=== PATIENT | male | born 1960 | race African-American/Black ===

== ENCOUNTER 2018-09-11 09:39 | Observation (INO) | payer MEDICARE, MEDICAID, SELFPAY ==
[2018-09-11] VITALS (32 sets, daily range): BP systolic 110–148; BP diastolic 43–74; PULSE 80–125; RESP 12–20; TEMP 36–36.7; O2SAT 90–99; BMI 45.2
[2018-09-11] MEDS: NITROGLYCERIN OINT 1 INCH/GM OINT...G. TOP (09:45)
--- NOTE | 2018-09-11 09:50 | DI.RAD.S_ITS ---
PROCEDURE: XR CHEST 1V INDICATIONS: chest pain/shortness of breath TECHNIQUE: One view of the chest was acquired. COMPARISON: Located Within [facility], CR, XR CHEST 2 VIEWS, 01/31/2018, 9:00. FINDINGS: Surgical changes and devices: None. Lungs and pleura: Moderately increased perihilar interstitial markings are identified. No focal consolidation, effusion, or pneumothorax is evident. Mediastinum: Mediastinal contours appear normal. Heart size is enlarged. Bones and chest wall: No suspicious bony lesions. Overlying soft tissues appear unremarkable. IMPRESSION: Cardiomegaly with associated prominent perihilar interstitial markings. Please correlate clinically for possible developing pulmonary edema. No definite pneumonia. Dictated by: Royce Jackson M.D. on 09/11/2018 at 9:30 Approved by: Royce Jackson M.D. on 09/11/2018 at 9:36
[2018-09-11] MEDS: SODIUM CHLORIDE 0.9% 1,000 ML 1000 ML IV (10:00)
[2018-09-11] MEDS: dilTIAZem 5 MG/ML SDV 10 MG IV ×2 (10:00→10:25)
--- NOTE | 2018-09-11 10:06 | ED.CHESTPAIN ---
HPI - Chest Pain General Chief Complaint: Chest Pain Stated Complaint: Chest Pain Time Seen by Provider: 09/11/18 09:40 Source: patient and EMS Mode of arrival: ambulatory Limitations: no limitations History of Present Illness HPI narrative: Patient is brought to the emergency department by EMS after experiencing left-sided, nonradiating chest pain, shortness of breath, diaphoresis, and palpitations this morning, starting at 6:00 a.m.. Patient states his pain was a 9/10 initially, and is still the same. He states that it came on at rest. Patient has a history of a non ST elevation [place], for which she was seen in June 2017 at [facility] in [place]. He also has history of paroxysmal atrial fibrillation. During his admission for his [place], he was found to have ?slightly elevated troponins and if ?according to notes, and a subsequent myocardial perfusion test showed low risk study. Patient did not have a cardiac catheterization, and notes states that it was elected to treat the patient medically. At that time, he was put on warfarin at a dose of 5 mg a day. However, patient states this now he is on nothing. He states that his doctor took him off aspirin also. The patient is not clear why. Medics state that when they picked the patient up, they found him to have a heart rate of 150 beats per minute, with atrial fibrillation. Patient was given 25 mg of Cardizem en-route, which brought his heart rate down to the 110's. Related Data Home Medications Medication Instructions Recorded Confirmed allopurinol 300 mg PO DAILY 09/11/18 09/11/18 atorvastatin 40 mg PO BEDTIME 09/11/18 09/11/18 baclofen 10 mg PO TID PRN 09/11/18 09/11/18 benzonatate 200 mg PO TID PRN 09/11/18 09/11/18 benztropine 1 tab PO BID 09/11/18 09/11/18 budesonide-formoterol 2 puff INHALATION BID PRN 09/11/18 09/11/18 carvedilol 25 mg PO BID 09/11/18 09/11/18 clonazepam 1 mg PO BID PRN 09/11/18 09/11/18 fluticasone propionate [Allergy 2 spray INTRANASAL DAILY 09/11/18 09/11/18 Relief (fluticasone)] furosemide 40 mg PO BID 09/11/18 09/11/18 ipratropium-albuterol 3 ml INHALATION QID PRN 09/11/18 09/11/18 ipratropium-albuterol [Combivent 1 puff INHALATION QID 09/11/18 09/11/18 Respimat] lamotrigine 150 mg PO DAILY 09/11/18 09/11/18 metformin 500 mg PO BID 09/11/18 09/11/18 montelukast 10 mg PO DAILY 09/11/18 09/11/18 nitroglycerin See Rx Instructions .ROUTE .COMPLEX 09/11/18 09/11/18 quetiapine 200 mg PO DAILY PRN 09/11/18 09/11/18 spironolactone 25 mg PO DAILY 09/11/18 09/11/18 tramadol 1 - 2 tab PO QID PRN 09/11/18 09/11/18 trazodone 150 mg PO BEDTIME 09/11/18 09/11/18 warfarin 1 - 2 tab PO DAILY 09/11/18 09/11/18 Allergies Allergy/AdvReac Type Severity Reaction Status Date / Time sulfamethoxazole Allergy Intermediate ITCHING Verified 09/11/18 10:06 [From BACTRIM] trimethoprim [From BACTRIM] Allergy Intermediate ITCHING Verified 09/11/18 10:06 Review of Systems Constitutional Denies chills, Denies fever(s), Denies lethargy and Denies weakness Eyes Denies change in vision, Denies eye discharge, Denies irritation and Denies loss of vision ENT Ears, Nose, Mouth, and Throat: Denies change in voice, Denies neck pain and Denies sore throat Cardiovascular Reports chest pain, Reports irregular heart rhythm, Denies lightheadedness, Reports palpitations, Reports dyspnea, Denies dyspnea on exertion and Denies orthopnea Respiratory Denies cough, Reports dyspnea, Denies dyspnea on exertion and Denies wheezing Gastrointestinal Gastrointestinal: Denies abdominal pain, Denies change in bowel habits, Denies diarrhea, Denies nausea and Denies vomiting Genitourinary Denies hematuria, Denies flank pain, Denies urinary incontinence and Denies urinary urgency Musculoskeletal Denies neck pain Integumentary/Breasts Denies pruritus, Denies erythema, Denies rash and Denies wounds Neurologic Denies confusion, Denies loss of vision and Denies weakness Psychiatric Denies anxiety, Denies confusion, Denies depression, Denies homicidal ideation and Denies suicidal ideation Endocrine Reports palpitations Hematologic/Lymphatic Denies easy bruising Allergic/Immunologic Denies wheezing [facility] Medical History (Updated 09/11/18 @ 14:35 by Luciana Rg MD) Chronic respiratory failure (Acute) Diabetes type 2, controlled (Acute) Former smoker (Acute) Grade III diastolic dysfunction (Acute) Hyperlipidemia (Acute) Hypertensive heart disease with heart failure (Acute) Non-ST elevated myocardial infarction (Acute) 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 (Acute) Obstructive sleep apnea (Acute) Paroxysmal atrial fibrillation with rapid ventricular response (Acute) Systemic hypertension (Acute) Surgical History (Updated 09/11/18 @ 10:58 by Ciera Espitia RN) H/O umbilical hernia repair (Acute ~1966) History of right hip replacement (Acute ~2014) Social History household members: spouse Smoking Status: Current some day smoker alcohol intake: current Social History household members: spouse Smoking Status: Current some day smoker alcohol intake: current Exam Initial Vital Signs Initial Vital Signs: Vital Signs Temperature 98.1 F 09/11/18 09:31 Pulse Rate 117 H 09/11/18 09:31 Respiratory Rate 16 09/11/18 09:31 Blood Pressure 145/68 H 09/11/18 09:31 Pulse Oximetry 94 09/11/18 09:31 Course Course Narrative: The patient was having chest pain upon arrival, and nitroglycerin paste was placed on his chest. He had received aspirin by the medics EN route to the hospital. The patient had received Cardizem en route, which had had a positive effect on his heart rate. He however, he was still tachycardic so I did order a total of 20 mg more of Cardizem IV. Patient was also given some IV fluid in the emergency department, and was worked up with laboratory studies, EKG, and chest x-ray initially. EKG showed AFib with RVR, and the laboratory studies showed a troponin that was slightly elevated at 0.017. Patient initially responded well to the Cardizem given in the emergency department, with his heart rate dropping down to around 100. However, after a about 30 minutes, the heart rate did begin to climb again into the 120s to 130s. At this point, the patient was put on a Cardizem drip, which did keep him very well controlled with a heart rate in the 80s to 90s, but still in atrial fibrillation. He the patient had continued to have some chest pain after the nitroglycerin, so he was given a dose of morphine which greatly improved his pain. Patient's INR was found to be 1.0. Records had finally arrive from the patient's primary care physician's office, and med list and notes demonstrated that the patient is supposed to be on Coumadin. However, the patient had stated that he is not on any anticoagulants including Coumadin or aspirin. Patient was sent for a CTA of the chest, which was unremarkable. I did review the patient's extensive medical records from [facility], and [facility], including the patient's prior cardiac studies. The patient had had a negative cardiac catheterization in 2013, as well as a number of stress tests and a few myocardial perfusion test, as well. The patient's most recent stress test/myocardial perfusion test was on September 04 of this year, and showed a negative stress test but a myocardial perfusion test showing ischemia in the distribution of the right coronary artery. I spoke with the on-call channel marketing coordinator, , at [facility] in telling him, and he stated that at this time, he would consider a cardiac catheterization a low priority, and recommends medical management. I spoke with Dr. Johnson, who was hospitalist on duty, and she did accept the patient for admission. Orders Ordered: ED Orders 09/11/18 11:57 CT angio chest PE protocol Stat 09/11/18 12:50 EKG-12 Lead Stat 09/11/18 13:04 Trop I [Troponin I] Stat 09/11/18 13:49 Urine Microscopic Stat 09/11/18 14:34 Urinalysis and Microscopic Stat 09/11/18 16:28 Consult to Pastoral Services Routine Diltiazem HCl 125 mg/ Dextrose 125 mls @ 5 mls/hr IV TITRATE ANURAG; Protocol Last Titration: 09/11/18 16:11 Dose: 5 mg/hr, 5 mls/hr Admin: 09/11/18 11:41 Dose: 5 mg/hr, 5 mls/hr Discontinued Medications Aspirin (Aspirin) 325 mg PO NOW ONE Stop: 09/11/18 09:51 Last Admin: 09/11/18 10:15 Dose: Not Given Diltiazem HCl (Cardizem) 10 mg IV NOW ONE Stop: 09/11/18 09:51 Last Admin: 09/11/18 10:00 Dose: 10 mg Diltiazem HCl (Cardizem) 10 mg IV NOW ONE Stop: 09/11/18 10:19 Last Admin: 09/11/18 10:25 Dose: 10 mg Sodium Chloride (Normal Saline 0.9%) 1,000 mls @ 1,000 mls/hr IV BOLUS ONE Stop: 09/11/18 10:49 Last Infusion: 09/11/18 15:40 Dose: 0 mls/hr Infusion: 09/11/18 10:27 Dose: 150 mls/hr Admin: 09/11/18 10:00 Dose: 1,000 mls/hr Morphine Sulfate (Morphine) 4 mg IV NOW ONE Stop: 09/11/18 10:37 Last Admin: 09/11/18 10:37 Dose: 4 mg Nitroglycerin (Nitro-Dur) 0.4 mg TOP 0700 ANURAG Nitroglycerin (Nitro-Bid) 1 inch TOP NOW ONE Stop: 09/11/18 10:20 Last Admin: 09/11/18 09:45 Dose: 1 inch Vital Signs - 8 hr 09/11/18 11:06 09/11/18 11:36 09/11/18 11:41 Temperature Pulse Rate 105 H 108 H 96 H Respiratory Rate 18 19 Blood Pressure 126/70 Blood Pressure [Right Arm] 144/68 H 126/70 Pulse Oximetry 95 95 09/11/18 12:00 09/11/18 12:31 09/11/18 13:00 Temperature Pulse Rate 112 H 93 H 93 H Respiratory Rate 20 18 20 Blood Pressure Blood Pressure [Right Arm] 139/58 L 133/72 Pulse Oximetry 98 98 97 09/11/18 13:30 09/11/18 14:00 09/11/18 14:30 Temperature Pulse Rate 88 93 H Respiratory Rate 18 12 17 Blood Pressure Blood Pressure [Right Arm] 130/63 116/71 131/72 Pulse Oximetry 99 95 09/11/18 15:00 09/11/18 15:32 09/11/18 16:05 Temperature 96.9 F L Pulse Rate 88 84 86 Respiratory Rate 16 13 14 Blood Pressure 148/73 H Blood Pressure [Right Arm] 120/74 118/70 Pulse Oximetry 98 99 98 09/11/18 16:16 09/11/18 17:01 09/11/18 18:00 Temperature 96.8 F L 96.8 F L Pulse Rate 82 88 85 Respiratory Rate 20 16 16 Blood Pressure 118/70 135/74 119/70 Blood Pressure [Right Arm] Pulse Oximetry 98 98 98 MDM - Chest Pain Medical Records Data Attestation: I reviewed the patient's medical records. Lab Data Attestation: I reviewed the patient's lab results. Result diagrams: 09/11/18 09:55 09/11/18 09:55 Lab Results 09/11/18 09/11/18 09/11/18 Range/Units 09:55 09:55 09:55 WBC 8.3 (4.5-11.0) X10^3/uL RBC 5.16 (4.5-5.9) X10^6/uL Hgb 13.4 L (13.5-17.5) g/dL Hct 41.7 (41-53) % MCV 80.9 (80-100) fL MCH 26.0 (26-34) PG MCHC 32.1 (30-36) % RDW 15.7 H (11.6-14.8) % Plt Count 324 (150-400) X10^3/uL Neut % (Auto) 72.8 (50-75) % Lymph % (Auto) 17.5 L (25-40) % Hill % (Auto) 7.4 (3-14) % Eos % (Auto) 1.6 L (2-4) % Baso % (Auto) 0.7 (0-2) % Neut # (Auto) 6000 (5126-4730) /uL Lymph # (Auto) 1500 (3573-4223) /uL Hill # (Auto) 600 (0-900) /uL Eos # (Auto) 100 (0-450) /uL Baso # (Auto) 100 (0-100) /uL PT 12.7 (10.1-12.7) SECONDS INR 1.1 (0.9-1.3) APTT 35 (26.4-36.2) SECONDS Sodium 137 (137-145) mmol/L Potassium 4.3 (3.4-5.1) mmol/L Chloride 104 (98-107) mmol/L Carbon Dioxide 21 L (22-32) mmol/L BUN 17 (9-20) mg/dL Creatinine 1.10 (0.66-1.25) mg/dL Estimated GFR > 60.0 (>60) mL/min BUN/Creatinine Ratio 15.5 (6-22) Glucose 209 H (70-100) mg/dL Calcium 9.2 (8.4-10.2) mg/dL Total Bilirubin 0.3 (0.2-1.3) mg/dL AST 22 (17-59) IU/L ALT 25 (21-72) IU/L Alkaline Phosphatase 115 (38-126) U/L Total Creatine Kinase 199 H (55-170) U/L CK-MB (CK-2) 1.16 (<2.37) ng/mL CK-MB (CK-2) Rel Index 0.6 L (1.5-5.0) % Troponin I 0.017 (0.01-0.034) ng/mL B-Natriuretic Peptide < 100 (<100) Total Protein 7.2 (6.3-8.2) g/dL Albumin 4.2 (3.5-5.0) g/dL Globulin 3.0 (1.7-4.1) g/dL Albumin/Globulin Ratio 1.4 (1.0-2.8) Urine RBC (0-5/HPF) Urine WBC (0-5/HPF) Urine Bacteria (None) Ur Culture Indicated? 09/11/18 09/11/18 Range/Units 13:04 13:49 WBC (4.5-11.0) X10^3/uL RBC (4.5-5.9) X10^6/uL Hgb (13.5-17.5) g/dL Hct (41-53) % MCV (80-100) fL MCH (26-34) PG MCHC (30-36) % RDW (11.6-14.8) % Plt Count (150-400) X10^3/uL Neut % (Auto) (50-75) % Lymph % (Auto) (25-40) % Hill % (Auto) (3-14) % Eos % (Auto) (2-4) % Baso % (Auto) (0-2) % Neut # (Auto) (6727-5536) /uL Lymph # (Auto) (9803-2557) /uL Hill # (Auto) (0-900) /uL Eos # (Auto) (0-450) /uL Baso # (Auto) (0-100) /uL PT (10.1-12.7) SECONDS INR (0.9-1.3) APTT (26.4-36.2) SECONDS Sodium (137-145) mmol/L Potassium (3.4-5.1) mmol/L Chloride (98-107) mmol/L Carbon Dioxide (22-32) mmol/L BUN (9-20) mg/dL Creatinine (0.66-1.25) mg/dL Estimated GFR (>60) mL/min BUN/Creatinine Ratio (6-22) Glucose (70-100) mg/dL Calcium (8.4-10.2) mg/dL Total Bilirubin (0.2-1.3) mg/dL AST (17-59) IU/L ALT (21-72) IU/L Alkaline Phosphatase (38-126) U/L Total Creatine Kinase (55-170) U/L CK-MB (CK-2) (<2.37) ng/mL CK-MB (CK-2) Rel Index (1.5-5.0) % Troponin I 0.020 (0.01-0.034) ng/mL B-Natriuretic Peptide (<100) Total Protein (6.3-8.2) g/dL Albumin (3.5-5.0) g/dL Globulin (1.7-4.1) g/dL Albumin/Globulin Ratio (1.0-2.8) Urine RBC None seen (0-5/HPF) Urine WBC 0-1/hpf (0-5/HPF) Urine Bacteria Few (2-10) H (None) Ur Culture Indicated? Cult not indicated Urine Dip Bedside Urine Glucose 100 mg/dl Bedside Urine Bilirubin - Negative Bedside Urine Ketone - Negative Urine Specific [place] 1.025 Bedside Urine Occult Blood - Negative Bedside Urine pH 5.5 Bedside Urine Protein + 30 Bedside Urine Urobilinogen - Negative Bedside Urine Nitrite - Negative Bedside Urine Leukocytes - Negative Esterase ECG Data Attestation: I personally reviewed and interpreted this ECG as follows: (See below) Interpretation: Twelve lead EKG performed September 11, 2018 at 9:40 a.m., as follows: Irregular ventricular with a rate of 121 beats per minute SD interval and P-waves undetectable QRS duration 88 millisecond QTC interval 370 millisecond Normal axis Nonspecific ST T wave abnormality Interpretation: Atrial fibrillation with rapid ventricular response; Nonspecific T-wave abnormality; Abnormal rhythm EKG as interpreted by ED MD. EKG #2, performed September 11, 2018 at 12:50 p.m., as follows: Irregular ventricular rhythm with a rate of 94 beats per minute P waves in peer intervals are undetectable QRS duration 91 milliseconds QTC interval 387 milliseconds [place] normal No ST or T-wave changes Interpretation: Atrial fibrillation; nonspecific T-wave abnormality; abnormal rhythm EKG as interpreted by ED MD. Critical Care Time Critical Care Time: Yes Total Critical Care Time: 40 Attestation: Critical care was necessary to prevent imminent deterioration and potential life-threatening decline in the setting of a cardiac rhythm and rate abnormality, and in the setting of coronary artery disease. Critical care time includes history taking from the patient, examination of the patient, ordering and reviewing EKG, ordering and reviewing blood work, ordering and reviewing radiographic studies, assessing the patient's cardiac output and oxygenation status, ordering critical medication interventions, reassessing the patient after such interventions, monitor interpretation, obtaining history from others including EMS, reviewing the medical record, consulting with specialists, and documentation. Critical care time is exclusive of separately billable procedures. Discharge Plan Departure Patient Disposition: Admitted As Inpatient Clinical Impression: Atrial fibrillation with rapid ventricular response Chest pain Qualifiers: Chest pain type: unspecified Qualified Code(s): R07.9 - Chest pain, unspecified Discharge Date/Time: 09/11/18 16:15 Interventions: ED Discharge Assessment Last Done: 09/11/18 16:16 Admit Date/Time: 09/11/18 16:13 Admit Provider: Leigha Johnson
[2018-09-11 10:10] LABS: Add Manual Diff / Slide Review NO; Basophils Absolute Auto 100 /uL (0-100); Basophils Percent Auto 0.7 % (0-2); Eosinophils Absolute Auto 100 /uL (0-450); Eosinophils Percent Auto 1.6 % (2-4); Hematocrit 41.7 % (41-53); Hemoglobin 13.4 g/dL (13.5-17.5); Lymphocytes Absolute Auto 1500 /uL (1100-4500); Lymphocytes Percent Auto 17.5 % (25-40); Mean Corpuscular HGB Conc 32.1 % (30-36); Mean Corpuscular Volume 80.9 fL (80-100); Monocytes Absolute Auto 600 /uL (0-900); Monocytes Percent Auto 7.4 % (3-14); Neutrophils Absolute Auto 6000 /uL (1500-7000); Neutrophils Percent Auto 72.8 % (50-75); Platelet Count 324 X10^3/uL (150-400); Red Blood Cell Count 5.16 X10^6/uL (4.5-5.9); Red Cell Distribution Width 15.7 % (11.6-14.8); White Blood Cell Count 8.3 X10^3/uL (4.5-11.0)
--- NOTE | 2018-09-11 10:10 | ED_ITS ---
HPI - Chest Pain General Chief Complaint: Chest Pain Stated Complaint: Chest Pain Time Seen by Provider: 09/11/18 09:40 Source: patient and EMS Mode of arrival: ambulatory Limitations: no limitations History of Present Illness HPI narrative: Patient is brought to the emergency department by EMS after experiencing left-sided, nonradiating chest pain, shortness of breath, diaphoresis, and palpitations this morning, starting at 6:00 a.m.. Patient states his pain was a 9/10 initially, and is still the same. He states that it came on at rest. Patient has a history of a non ST elevation ME, for which she was seen in June 2017 at [facility] in [place]. He also has history of paroxysmal atrial fibrillation. During his admission for his ME, he was found to have ?slightly elevated troponins and if ?according to notes, and a subsequent myocardial perfusion test showed low risk study. Patient did not have a cardiac catheterization, and notes states that it was elected to treat the patient medically. At that time, he was put on warfarin at a dose of 5 mg a day. However, patient states this now he is on nothing. He states that his doctor took him off aspirin also. The patient is not clear why. Medics state that when they picked the patient up, they found him to have a heart rate of 150 beats per minute, with atrial fibrillation. Patient was given 25 mg of Cardizem en-route, which brought his heart rate down to the 110's. Related Data Home Medications Medication Instructions Recorded Confirmed allopurinol 300 mg PO DAILY 09/11/18 09/11/18 atorvastatin 40 mg PO BEDTIME 09/11/18 09/11/18 baclofen 10 mg PO TID PRN 09/11/18 09/11/18 benzonatate 200 mg PO TID PRN 09/11/18 09/11/18 benztropine 1 tab PO BID 09/11/18 09/11/18 budesonide-formoterol 2 puff INHALATION BID PRN 09/11/18 09/11/18 carvedilol 25 mg PO BID 09/11/18 09/11/18 clonazepam 1 mg PO BID PRN 09/11/18 09/11/18 fluticasone propionate [Allergy 2 spray INTRANASAL DAILY 09/11/18 09/11/18 Relief (fluticasone)] furosemide 40 mg PO BID 09/11/18 09/11/18 ipratropium-albuterol 3 ml INHALATION QID PRN 09/11/18 09/11/18 ipratropium-albuterol [Combivent 1 puff INHALATION QID 09/11/18 09/11/18 Respimat] lamotrigine 150 mg PO DAILY 09/11/18 09/11/18 metformin 500 mg PO BID 09/11/18 09/11/18 montelukast 10 mg PO DAILY 09/11/18 09/11/18 nitroglycerin See Rx Instructions .ROUTE .COMPLEX 09/11/18 09/11/18 quetiapine 200 mg PO DAILY PRN 09/11/18 09/11/18 spironolactone 25 mg PO DAILY 09/11/18 09/11/18 tramadol 1 - 2 tab PO QID PRN 09/11/18 09/11/18 trazodone 150 mg PO BEDTIME 09/11/18 09/11/18 warfarin 1 - 2 tab PO DAILY 09/11/18 09/11/18 Allergies Allergy/AdvReac Type Severity Reaction Status Date / Time sulfamethoxazole Allergy Intermediate ITCHING Verified 09/11/18 10:06 [From BACTRIM] trimethoprim [From BACTRIM] Allergy Intermediate ITCHING Verified 09/11/18 10:06 Review of Systems Constitutional Denies chills, Denies fever(s), Denies lethargy and Denies weakness Eyes Denies change in vision, Denies eye discharge, Denies irritation and Denies loss of vision ENT Ears, Nose, Mouth, and Throat: Denies change in voice, Denies neck pain and Denies sore throat Cardiovascular Reports chest pain, Reports irregular heart rhythm, Denies lightheadedness, Reports palpitations, Reports dyspnea, Denies dyspnea on exertion and Denies orthopnea Respiratory Denies cough, Reports dyspnea, Denies dyspnea on exertion and Denies wheezing Gastrointestinal Gastrointestinal: Denies abdominal pain, Denies change in bowel habits, Denies diarrhea, Denies nausea and Denies vomiting Genitourinary Denies hematuria, Denies flank pain, Denies urinary incontinence and Denies urinary urgency Musculoskeletal Denies neck pain Integumentary/Breasts Denies pruritus, Denies erythema, Denies rash and Denies wounds Neurologic Denies confusion, Denies loss of vision and Denies weakness Psychiatric Denies anxiety, Denies confusion, Denies depression, Denies homicidal ideation and Denies suicidal ideation Endocrine Reports palpitations Hematologic/Lymphatic Denies easy bruising Allergic/Immunologic Denies wheezing [facility] Medical History (Updated 09/11/18 @ 14:35 by Luciana Rg MD) Chronic respiratory failure (Acute) Diabetes type 2, controlled (Acute) Former smoker (Acute) Grade III diastolic dysfunction (Acute) Hyperlipidemia (Acute) Hypertensive heart disease with heart failure (Acute) Non-ST elevated myocardial infarction (Acute) 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 (Acute) Obstructive sleep apnea (Acute) Paroxysmal atrial fibrillation with rapid ventricular response (Acute) Systemic hypertension (Acute) Surgical History (Updated 09/11/18 @ 10:58 by Ciera Espitia RN) H/O umbilical hernia repair (Acute ~1966) History of right hip replacement (Acute ~2014) Social History household members: spouse Smoking Status: Current some day smoker alcohol intake: current Social History household members: spouse Smoking Status: Current some day smoker alcohol intake: current Exam Initial Vital Signs Initial Vital Signs: Vital Signs Temperature 98.1 F 09/11/18 09:31 Pulse Rate 117 H 09/11/18 09:31 Respiratory Rate 16 09/11/18 09:31 Blood Pressure 145/68 H 09/11/18 09:31 Pulse Oximetry 94 09/11/18 09:31 Course Course Narrative: The patient was having chest pain upon arrival, and nitroglycerin paste was placed on his chest. He had received aspirin by the medics EN route to the hospital. The patient had received Cardizem en route, which had had a positive effect on his heart rate. He however, he was still tachycardic so I did order a total of 20 mg more of Cardizem IV. Patient was also given some IV fluid in the emergency department, and was worked up with laboratory studies, EKG, and chest x-ray initially. EKG showed AFib with RVR, and the laboratory studies showed a troponin that was slightly elevated at 0.017. Patient initially responded well to the Cardizem given in the emergency department, with his heart rate dropping down to around 100. However, after a about 30 minutes, the heart rate did begin to climb again into the 120s to 130s. At this point, the patient was put on a Cardizem drip, which did keep him very well controlled with a heart rate in the 80s to 90s, but still in atrial fibrillation. He the patient had continued to have some chest pain after the nitroglycerin, so he was given a dose of morphine which greatly improved his pain. Patient's INR was found to be 1.0. Records had finally arrive from the patient's primary care physician's office, and med list and notes demonstrated that the patient is supposed to be on Coumadin. However, the patient had stated that he is not on any anticoagulants including Coumadin or aspirin. Patient was sent for a CTA of the chest, which was unremarkable. I did review the patient's extensive medical records from [facility], and [facility], including the patient's prior cardiac studies. The patient had had a negative cardiac catheterization in 2013, as well as a number of stress tests and a few myocardial perfusion test, as well. The patient's most recent stress test /myocardial perfusion test was on September 04 of this year, and showed a negative stress test but a myocardial perfusion test showing ischemia in the distribution of the right coronary artery. I spoke with the on-call business intelligence director, , at [facility] in telling him, and he stated that at this time, he would consider a cardiac catheterization a low priority, and recommends medical management. I spoke with Dr. Johnson, who was hospitalist on duty, and she did accept the patient for admission. Orders Ordered: ED Orders 09/11/18 11:57 CT angio chest PE protocol Stat 09/11/18 12:50 EKG-12 Lead Stat 09/11/18 13:04 Trop I [Troponin I] Stat 09/11/18 13:49 Urine Microscopic Stat 09/11/18 14:34 Urinalysis and Microscopic Stat 09/11/18 16:28 Consult to Pastoral Services Routine Diltiazem HCl 125 mg/ Dextrose 125 mls @ 5 mls/hr IV TITRATE ANURAG; Protocol Last Titration: 09/11/18 16:11 Dose: 5 mg/hr, 5 mls/hr Admin: 09/11/18 11:41 Dose: 5 mg/hr, 5 mls/hr Discontinued Medications Aspirin (Aspirin) 325 mg PO NOW ONE Stop: 09/11/18 09:51 Last Admin: 09/11/18 10:15 Dose: Not Given Diltiazem HCl (Cardizem) 10 mg IV NOW ONE Stop: 09/11/18 09:51 Last Admin: 09/11/18 10:00 Dose: 10 mg Diltiazem HCl (Cardizem) 10 mg IV NOW ONE Stop: 09/11/18 10:19 Last Admin: 09/11/18 10:25 Dose: 10 mg Sodium Chloride (Normal Saline 0.9%) 1,000 mls @ 1,000 mls/hr IV BOLUS ONE Stop: 09/11/18 10:49 Last Infusion: 09/11/18 15:40 Dose: 0 mls/hr Infusion: 09/11/18 10:27 Dose: 150 mls/hr Admin: 09/11/18 10:00 Dose: 1,000 mls/hr Morphine Sulfate (Morphine) 4 mg IV NOW ONE Stop: 09/11/18 10:37 Last Admin: 09/11/18 10:37 Dose: 4 mg Nitroglycerin (Nitro-Dur) 0.4 mg TOP 0700 ANURAG Nitroglycerin (Nitro-Bid) 1 inch TOP NOW ONE Stop: 09/11/18 10:20 Last Admin: 09/11/18 09:45 Dose: 1 inch Vital Signs - 8 hr 09/11/18 11:06 09/11/18 11:36 09/11/18 11:41 Temperature Pulse Rate 105 H 108 H 96 H Respiratory Rate 18 19 Blood Pressure 126/70 Blood Pressure [Right Arm] 144/68 H 126/70 Pulse Oximetry 95 95 09/11/18 12:00 09/11/18 12:31 09/11/18 13:00 Temperature Pulse Rate 112 H 93 H 93 H Respiratory Rate 20 18 20 Blood Pressure Blood Pressure [Right Arm] 139/58 L 133/72 Pulse Oximetry 98 98 97 09/11/18 13:30 09/11/18 14:00 09/11/18 14:30 Temperature Pulse Rate 88 93 H Respiratory Rate 18 12 17 Blood Pressure Blood Pressure [Right Arm] 130/63 116/71 131/72 Pulse Oximetry 99 95 09/11/18 15:00 09/11/18 15:32 09/11/18 16:05 Temperature 96.9 F L Pulse Rate 88 84 86 Respiratory Rate 16 13 14 Blood Pressure 148/73 H Blood Pressure [Right Arm] 120/74 118/70 Pulse Oximetry 98 99 98 09/11/18 16:16 09/11/18 17:01 09/11/18 18:00 Temperature 96.8 F L 96.8 F L Pulse Rate 82 88 85 Respiratory Rate 20 16 16 Blood Pressure 118/70 135/74 119/70 Blood Pressure [Right Arm] Pulse Oximetry 98 98 98 MDM - Chest Pain Medical Records Data Attestation: I reviewed the patient's medical records. Lab Data Attestation: I reviewed the patient's lab results. Result diagrams: 09/11/18 09:55 09/11/18 09:55 Lab Results 09/11/18 09/11/18 09/11/18 Range/Units 09:55 09:55 09:55 WBC 8.3 (4.5-11.0) X10^3/uL RBC 5.16 (4.5-5.9) X10^6/uL Hgb 13.4 L (13.5-17.5) g/dL Hct 41.7 (41-53) % MCV 80.9 (80-100) fL MCH 26.0 (26-34) PG MCHC 32.1 (30-36) % RDW 15.7 H (11.6-14.8) % Plt Count 324 (150-400) X10^3/uL Neut % (Auto) 72.8 (50-75) % Lymph % (Auto) 17.5 L (25-40) % [place] % (Auto) 7.4 (3-14) % Eos % (Auto) 1.6 L (2-4) % Baso % (Auto) 0.7 (0-2) % Neut # (Auto) 6000 (9373-0015) /uL Lymph # (Auto) 1500 (0078-2114) /uL [place] # (Auto) 600 (0-900) /uL Eos # (Auto) 100 (0-450) /uL Baso # (Auto) 100 (0-100) /uL PT 12.7 (10.1-12.7) SECONDS INR 1.1 (0.9-1.3) APTT 35 (26.4-36.2) SECONDS Sodium 137 (137-145) mmol/L Potassium 4.3 (3.4-5.1) mmol/L Chloride 104 (98-107) mmol/L Carbon Dioxide 21 L (22-32) mmol/L BUN 17 (9-20) mg/dL Creatinine 1.10 (0.66-1.25) mg/dL Estimated GFR > 60.0 (>60) mL/min BUN/Creatinine Ratio 15.5 (6-22) Glucose 209 H (70-100) mg/dL Calcium 9.2 (8.4-10.2) mg/dL Total Bilirubin 0.3 (0.2-1.3) mg/dL AST 22 (17-59) IU/L ALT 25 (21-72) IU/L Alkaline Phosphatase 115 (38-126) U/L Total Creatine Kinase 199 H (55-170) U/L CK-MB (CK-2) 1.16 (<2.37) ng/mL CK-MB (CK-2) Rel Index 0.6 L (1.5-5.0) % Troponin I 0.017 (0.01-0.034) ng/mL B-Natriuretic Peptide < 100 (<100) Total Protein 7.2 (6.3-8.2) g/dL Albumin 4.2 (3.5-5.0) g/dL Globulin 3.0 (1.7-4.1) g/dL Albumin/Globulin Ratio 1.4 (1.0-2.8) Urine RBC (0-5/HPF) Urine WBC (0-5/HPF) Urine Bacteria (None) Ur Culture Indicated? 09/11/18 09/11/18 Range/Units 13:04 13:49 WBC (4.5-11.0) X10^3/uL RBC (4.5-5.9) X10^6/uL Hgb (13.5-17.5) g/dL Hct (41-53) % MCV (80-100) fL MCH (26-34) PG MCHC (30-36) % RDW (11.6-14.8) % Plt Count (150-400) X10^3/uL Neut % (Auto) (50-75) % Lymph % (Auto) (25-40) % [place] % (Auto) (3-14) % Eos % (Auto) (2-4) % Baso % (Auto) (0-2) % Neut # (Auto) (8525-0740) /uL Lymph # (Auto) (1443-2083) /uL [place] # (Auto) (0-900) /uL Eos # (Auto) (0-450) /uL Baso # (Auto) (0-100) /uL PT (10.1-12.7) SECONDS INR (0.9-1.3) APTT (26.4-36.2) SECONDS Sodium (137-145) mmol/L Potassium (3.4-5.1) mmol/L Chloride (98-107) mmol/L Carbon Dioxide (22-32) mmol/L BUN (9-20) mg/dL Creatinine (0.66-1.25) mg/dL Estimated GFR (>60) mL/min BUN/Creatinine Ratio (6-22) Glucose (70-100) mg/dL Calcium (8.4-10.2) mg/dL Total Bilirubin (0.2-1.3) mg/dL AST (17-59) IU/L ALT (21-72) IU/L Alkaline Phosphatase (38-126) U/L Total Creatine Kinase (55-170) U/L CK-MB (CK-2) (<2.37) ng/mL CK-MB (CK-2) Rel Index (1.5-5.0) % Troponin I 0.020 (0.01-0.034) ng/mL B-Natriuretic Peptide (<100) Total Protein (6.3-8.2) g/dL Albumin (3.5-5.0) g/dL Globulin (1.7-4.1) g/dL Albumin/Globulin Ratio (1.0-2.8) Urine RBC None seen (0-5/HPF) Urine WBC 0-1/hpf (0-5/HPF) Urine Bacteria Few (2-10) H (None) Ur Culture Indicated? Cult not indicated Urine Dip Bedside Urine Glucose 100 mg/dl Bedside Urine Bilirubin - Negative Bedside Urine Ketone - Negative Urine Specific [place] 1.025 Bedside Urine Occult Blood - Negative Bedside Urine pH 5.5 Bedside Urine Protein + 30 Bedside Urine Urobilinogen - Negative Bedside Urine Nitrite - Negative Bedside Urine Leukocytes - Negative Esterase ECG Data Attestation: I personally reviewed and interpreted this ECG as follows: (See below) Interpretation: Twelve lead EKG performed September 11, 2018 at 9:40 a.m., as foll ows: Irregular ventricular with a rate of 121 beats per minute CO interval and P-waves undetectable QRS duration 88 millisecond QTC interval 370 millisecond Normal axis Nonspecific ST T wave abnormality Interpretation: Atrial fibrillation with rapid ventricular response; Nonspecific T-wave abnormality; Abnormal rhythm EKG as interpreted by ED MD. EKG #2, performed September 11, 2018 at 12:50 p.m., as follows: Irregular ventricular rhythm with a rate of 94 beats per minute P waves in peer intervals are undetectable QRS duration 91 milliseconds QTC interval 387 milliseconds Radcliffe normal No ST or T-wave changes Interpretation: Atrial fibrillation; nonspecific T-wave abnormality; abnormal rhythm EKG as interpreted by ED MD. Critical Care Time Critical Care Time: Yes Total Critical Care Time: 40 Attestation: Critical care was necessary to prevent imminent deterioration and potential life-threatening decline in the setting of a cardiac rhythm and rate abnormality, and in the setting of coronary artery disease. Critical care time includes history taking from the patient, examination of the patient, ordering and reviewing EKG, ordering and reviewing blood work, ordering and reviewing radiographic studies, assessing the patient's cardiac output and oxygenation status, ordering critical medication interventions, reassessing the patient after such interventions, monitor interpretation, obtaining history from others including EMS, reviewing the medical record, consulting with specialists, and documentation. Critical care time is exclusive of separately billable procedures. Discharge Plan Departure Patient Disposition: Admitted As Inpatient Clinical Impression: Atrial fibrillation with rapid ventricular response Chest pain Qualifiers: Chest pain type: unspecified Qualified Code(s): R07.9 - Chest pain, unspecified Discharge Date/Time: 09/11/18 16:15 Interventions: ED Discharge Assessment Last Done: 09/11/18 16:16 Admit Date/Time: 09/11/18 16:13 Admit Provider: Leigha Johnson
[2018-09-11 10:20] LABS: Alanine Aminotransferase 25 IU/L (21-72); Albumin 4.2 g/dL (3.5-5.0); Albumin Globulin Ratio 1.4 (1.0-2.8); Alkaline Phosphatase 115 U/L (38-126); Aspartate Aminotransferase 22 IU/L (17-59); BUN Creatinine Ratio 15.5 (6-22); Bilirubin Total 0.3 mg/dL (0.2-1.3); Blood Urea Nitrogen 17 mg/dL (9-20); Calcium 9.2 mg/dL (8.4-10.2); Carbon Dioxide 21 mmol/L (22-32); Chloride 104 mmol/L (98-107); Creatine Kinase 199 U/L (55-170); Estimated Glomerular Filt Rate > 60.0 mL/min (>60); Glucose 209 mg/dL (70-100); HEMOLYSIS 40 (0-50); Potassium 4.3 mmol/L (3.4-5.1); Sodium 137 mmol/L (137-145); Total Protein 7.2 g/dL (6.3-8.2)
[2018-09-11 10:30] LABS: Troponin I 0.017 ng/mL (0.01-0.034)
[2018-09-11 10:35] LABS: CKMB % Relative Index 0.6 % (1.5-5.0); Creatine Kinase MB 1.16 ng/mL (<2.37)
[2018-09-11] MEDS: MORPHINE 4 MG/ML INJ IV (10:37)
[2018-09-11 11:08] LABS: B Type Natriuretic Peptide < 100 (<100)
--- NOTE | 2018-09-11 11:27 | PC.NURSE ---
Attempted to reconcile medication list. Pt does not know meds & has not taken his meds today. - Reviewed med list from PCP however has multiple duplications of same class (Lasix, spirolactone & Hctz), antibiotics and prednisone which patient states he is not taking. Unsure of how accurate this list is at this time. - Pt states he only gets his meds from one source, [facility] in [place]. Contacted [facility], they will send their list and will use as current med list.
[2018-09-11] MEDS: dilTIAZem 125 MG in DEXTROSE 5 % IN WATER 100 ML IV (11:41)
--- NOTE | 2018-09-11 11:57 | DI.CT.S_ITS ---
PROCEDURE: CT ANGIO CHEST PE PROTOCOL INDICATIONS: chest pain, sob, a. fib no anticoag TECHNIQUE: After the administration of intravenous contrast, 2 mm thick sections acquired from the pulmonary apices to the posterior costophrenic angles. 3-dimensional maximum intensity projection (MIP) coronal and sagittal reformats were then acquired through the thorax. For radiation dose reduction, the following was used: automated exposure control, adjustment of mA and/or kV according to patient size. COMPARISON: None. FINDINGS: Image quality: Suboptimal evaluation for emboli within distal pulmonary branches secondary to contrast opacification. Pulmonary arteries: Pulmonary arteries are normal in size, and demonstrate no intraluminal filling defects to suggest central pulmonary embolism. Lungs and pleura: Small bilateral upper lobe pneumatoceles are noted. Minimal appearance of increased pulmonary vascularity is present. No pleural effusions or pneumothorax. Central and peripheral airways are patent. Mediastinum: Heart size is normal, without pericardial effusion. No mediastinal or hilar adenopathy. Thoracic aorta is normal in caliber and enhancement. Esophagus is normal in caliber, without hiatal hernia. Bones and chest wall: No suspicious bony lesions. Ribs and thoracic spine appear intact throughout. Thyroid gland demonstrates a 15 mm focus of low attenuation within the right lobe. No axillary or supraclavicular adenopathy. Abdomen: Visualized upper abdominal solid organs appear normal in the early arterial phase of enhancement. IMPRESSION: 1. No central pulmonary embolism. Peripheral branches are suboptimally evaluated as above. 2. Minimal appearance of increased pulmonary vascularity. This could be secondary to early edema versus poor respiratory effort. 3. 15 mm right thyroid lobe low attenuation focus if this could represent a small cyst or adenoma. No priors are available for comparison. Thyroid ultrasound is recommended for further evaluation. Dictated by: Sarina Alas M.D. on 09/11/2018 at 12:12 Approved by: Sarina Alas M.D. on 09/11/2018 at 12:15
[2018-09-11 12:16] LABS: INR 1.1 (0.9-1.3); Prothrombin Time 12.7 SECONDS (10.1-12.7)
[2018-09-11 12:19] LABS: PTT Partial Thromboplastin Tim 35 SECONDS (26.4-36.2)
[2018-09-11 13:51] LABS: RBC Urine None Seen (0-5/HPF)
[2018-09-11 14:12] LABS: Bacteria Urine Few (2-10); Culture Indicated Urine Cult Not Indicated; WBC Urine 0-1/HPF (0-5/HPF)
--- NOTE | 2018-09-11 16:36 | PC.NURSE ---
1605 - Patient admitted to room 103. Brought over on stretcher by nursing staff. Able to walk self to bathroom and to bed with standby assist. Alert and oriented with pleasant affect. Denies chest pain at this time. Oriented to room and call light, call light within reach.
[2018-09-11 20:08] LABS: Appearance Urine UA CLEAR; Bilirubin Urine UA NEGATIVE (NEGATIVE); Color Urine UA YELLOW; Glucose Urine UA NEGATIVE (Negative); Ketones Urine UA NEGATIVE (NEGATIVE); Leukocyte Esterase Urine UA NEGATIVE (NEGATIVE); Nitrite Urine UA NEGATIVE (Negative); Occult Blood Urine UA TRACE-INTACT (Negative); Protein Urine UA NEGATIVE (Negative); Urobilinogen Urine UA 0.2 E.U./dL (0.2)
[2018-09-11 20:13] LABS: RBC Urine 0-1/HPF (0-5/HPF); Squamous Epithelial Cell Urine 0-1 /HPF; WBC Urine 1-5/HPF (0-5/HPF)
[2018-09-11 20:14] LABS: Amorphous Sediment Urine 1+; Bacteria Urine Occasional (0-1); Culture Indicated Urine Cult Not Indicated
--- NOTE | 2018-09-11 20:17 | PM.HP.1 ---
History of Present Illness Date Patient Seen: 09/11/18 Time Patient Seen: 19:30 Chief complaint: Chest Pain Narrative: Kyle Zelaya is a 58-year-old morbidly obese male who was in his usual state of health and brought his for a provider appointment here at the hospital. He had chest pain earlier in the morning at approximately 6:00 a.m. described as being sharp on the left side. He did not inform his because he did not want to upset her however in the waiting room he was sitting with his automation driver and complaining of pain. At that point, his automation driver called paramedics who brought him here to the hospital. He describes the pain as being on the left side but denies radiation of pain to the jaw or his left arm. He also stated that his heart was ?racing?. He has chronic low back pain across his lumbar area which is bilateral. He denies fever sweats or chills, denies problems with his vision,. He denies shortness of breath or pain with inspiration or expiration, he does he denies nausea or vomiting, abdominal pain, urinary problems, skin rashes or lesions, numbing and tingling of his extremities, polyuria, he denies diarrhea or constipation, he does endorse having chronic anxiety, depression, and schizophrenia. States his diabetes is controlled said that his last A1c was 7.2. 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 (Acute) Obstructive sleep apnea (Acute) Paroxysmal atrial fibrillation with rapid ventricular response (Acute) Systemic hypertension (Acute) Surgical History H/O umbilical hernia repair (Acute ~1966) History of right hip replacement (Acute ~2014) Social History household members: spouse Smoking Status: Current some day smoker alcohol intake: current Family & Social History Family History (Updated 09/11/18 @ 21:51 by MAGALIE Horn) Father Knee pain, chronic Mother Patient denies significant medical history Social History: household members spouse Safety & Behavioral: Feels Safe in Current Yes Environment Been Physically Hurt or No Threatened By a Person Suicidal Ideation Description None Suicide Plan Description No Plan Tobacco & Substance use: Tobacco type cigarettes Smoking Status Current some day smoker alcohol intake current alcohol intake frequency 0-2 drinks per day Substance Use Type does not use Meds Home Medications Medication Instructions Recorded Confirmed Type allopurinol 300 mg PO DAILY 09/11/18 09/11/18 History atorvastatin 40 mg PO BEDTIME 09/11/18 09/11/18 History baclofen 10 mg PO TID PRN 09/11/18 09/11/18 History benzonatate 200 mg PO TID PRN 09/11/18 09/11/18 History benztropine 1 tab PO BID 09/11/18 09/11/18 History budesonide-formoterol 2 puff INHALATION BID PRN 09/11/18 09/11/18 History carvedilol 25 mg PO BID 09/11/18 09/11/18 History clonazepam 1 mg PO BID PRN 09/11/18 09/11/18 History fluticasone propionate [Allergy 2 spray INTRANASAL DAILY 09/11/18 09/11/18 History Relief (fluticasone)] furosemide 40 mg PO BID 09/11/18 09/11/18 History ipratropium-albuterol 3 ml INHALATION QID PRN 09/11/18 09/11/18 History ipratropium-albuterol [Combivent 1 puff INHALATION QID 09/11/18 09/11/18 History Respimat] lamotrigine 150 mg PO DAILY 09/11/18 09/11/18 History metformin 500 mg PO BID 09/11/18 09/11/18 History montelukast 10 mg PO DAILY 09/11/18 09/11/18 History nitroglycerin See Rx Instructions .ROUTE .COMPLEX 09/11/18 09/11/18 History quetiapine 200 mg PO DAILY PRN 09/11/18 09/11/18 History spironolactone 25 mg PO DAILY 09/11/18 09/11/18 History tramadol 1 - 2 tab PO QID PRN 09/11/18 09/11/18 History trazodone 150 mg PO BEDTIME 09/11/18 09/11/18 History warfarin 1 - 2 tab PO DAILY 09/11/18 09/11/18 History Allergies Allergy/AdvReac Type Severity Reaction Status Date / Time sulfamethoxazole Allergy Intermediate ITCHING Verified 09/11/18 10:06 [From BACTRIM] trimethoprim [From BACTRIM] Allergy Intermediate ITCHING Verified 09/11/18 10:06 Review of Systems Constitutional Constitutional: Reports as per HPI Exam Vital Signs (past 8 hours): - 09/11/18 12:31 09/11/18 13:00 09/11/18 13:30 Temperature Pulse Rate 93 H 93 H Respiratory Rate 18 20 18 Blood Pressure Blood Pressure [Right Arm] 139/58 L 133/72 130/63 Pulse Oximetry 98 97 09/11/18 14:00 09/11/18 14:30 09/11/18 15:00 Temperature Pulse Rate 88 93 H 88 Respiratory Rate 12 17 16 Blood Pressure Blood Pressure [Right Arm] 116/71 131/72 120/74 Pulse Oximetry 99 95 98 09/11/18 15:32 09/11/18 16:05 09/11/18 16:16 Temperature 96.9 F L Pulse Rate 84 86 82 Respiratory Rate 13 14 20 Blood Pressure 148/73 H 118/70 Blood Pressure [Right Arm] 118/70 Pulse Oximetry 99 98 98 09/11/18 17:01 09/11/18 18:00 09/11/18 19:07 Temperature 96.8 F L 96.8 F L 97.8 F Pulse Rate 88 85 87 Respiratory Rate 16 16 18 Blood Pressure 135/74 119/70 129/62 Blood Pressure [Right Arm] Pulse Oximetry 98 98 96 09/11/18 20:02 Temperature 97.6 F Pulse Rate 84 Respiratory Rate 20 Blood Pressure 117/68 Blood Pressure [Right Arm] Pulse Oximetry 96 Oxygen Delivery Method Nasal Cannula Oxygen Flow Rate 2 Narrative Exam Narrative: General: Alert and oriented morbidly obese 58-year-old male, appears to be in no distress HEENT: Head is normocephalic atraumatic Eyes: Conjunctiva is clear sclera nonicteric Neck: Supple, trachea midline, no JVD CV: Irregularly irregular and distant, I did not detect any murmurs or rubs Respirations: Lung sounds are clear to auscultation bilaterally no wheezes or rhonchi, breathing is nonlabored Abdomen: Obese, normoactive bowel tones, nontender Skin: No lesions or rashes, no wounds observed Neuro: Alert and oriented x4 with no focal deficits Extremities: Patient appears to be able to move all 4 extremities Psych: Cooperative affect Objective Labs Result Diagrams: 09/11/18 09:55 09/11/18 09:55 Labs: Laboratory Results - last 24 hr 09/11/18 09/11/18 09/11/18 09:55 09:55 09:55 WBC 8.3 RBC 5.16 Hgb 13.4 L Hct 41.7 MCV 80.9 MCH 26.0 MCHC 32.1 RDW 15.7 H Plt Count 324 Neut % (Auto) 72.8 Lymph % (Auto) 17.5 L [place] % (Auto) 7.4 Eos % (Auto) 1.6 L Baso % (Auto) 0.7 Neut # (Auto) 6000 Lymph # (Auto) 1500 [place] # (Auto) 600 Eos # (Auto) 100 Baso # (Auto) 100 PT 12.7 INR 1.1 APTT 35 Sodium 137 Potassium 4.3 Chloride 104 Carbon Dioxide 21 L BUN 17 Creatinine 1.10 Estimated GFR > 60.0 BUN/Creatinine Ratio 15.5 Glucose 209 H Calcium 9.2 Total Bilirubin 0.3 AST 22 ALT 25 Alkaline Phosphatase 115 Total Creatine Kinase 199 H CK-MB (CK-2) 1.16 CK-MB (CK-2) Rel Index 0.6 L Troponin I 0.017 B-Natriuretic Peptide < 100 Total Protein 7.2 Albumin 4.2 Globulin 3.0 Albumin/Globulin Ratio 1.4 Urine Color Urine Appearance Urine pH Ur Specific [place] Urine Protein Urine Glucose (UA) Urine Ketones Urine Occult Blood Urine Nitrate Urine Bilirubin Urine Urobilinogen Ur Leukocyte Esterase Urine RBC Urine WBC Ur Squamous Epith Cells Amorphous Sediment Urine Bacteria Ur Culture Indicated? 09/11/18 09/11/18 09/11/18 13:04 13:49 20:02 WBC RBC Hgb Hct MCV MCH MCHC RDW Plt Count Neut % (Auto) Lymph % (Auto) [place] % (Auto) Eos % (Auto) Baso % (Auto) Neut # (Auto) Lymph # (Auto) [place] # (Auto) Eos # (Auto) Baso # (Auto) PT INR APTT Sodium Potassium Chloride Carbon Dioxide BUN Creatinine Estimated GFR BUN/Creatinine Ratio Glucose Calcium Total Bilirubin AST ALT Alkaline Phosphatase Total Creatine Kinase CK-MB (CK-2) CK-MB (CK-2) Rel Index Troponin I 0.020 B-Natriuretic Peptide Total Protein Albumin Globulin Albumin/Globulin Ratio Urine Color Yellow Urine Appearance Clear Urine pH 5.0 Ur Specific [place] 1.020 Urine Protein Negative Urine Glucose (UA) Negative Urine Ketones Negative Urine Occult Blood Trace-intact Urine Nitrate Negative Urine Bilirubin Negative Urine Urobilinogen 0.2 Ur Leukocyte Esterase Negative Urine RBC None seen 0-1/hpf Urine WBC 0-1/hpf 1-5/hpf Ur Squamous Epith Cells 0-1 /hpf Amorphous Sediment 1+ Urine Bacteria Few (2-10) H Occasional (0-1) Ur Culture Indicated? Cult not indicated Cult not indicated Assessment & Plan (1) Atrial fibrillation with rapid ventricular response: Problem details: Present on admission Patient arrived on the floor on a diltiazem drip. He will remain on the diltiazem drip per protocol. Patient is anticoagulated with warfarin however he is subtherapeutic at 1.0. His 1st dose of warfarin tonight will be 7.5 mg. Patient will be placed in the ICU on telemetry. Current visit: Yes Status: Acute (2) Diabetes type 2, uncontrolled: Problem details: Present on admission Patient's oral anti-diabetics have been held. He is placed on basal and mealtime bolus insulin. Current visit: Yes Status: Chronic (3) Hypertensive heart disease with chronic diastolic congestive heart failure: Problem details: Present on admission. Continue home dose of carvedilol 25 mg p.o. b.i.d.. Lasix is held tonight recheck BMP in the morning Current visit: Yes Status: Chronic (4) Hyperlipidemia: Problem details: Present on admission Continue home dose of atorvastatin 40 mg p.o. at bedtime Current visit: Yes Status: Chronic (5) Inpatient management required: Problem details: This patient will be admitted to the ICU for close monitoring until such time that his rhythm converts. It is likely he will be cross tapered with oral diltiazem sometime within the next 24 hours. Activity: Ad taiwo as tolerated FEN: IV saline lock, Diabetic carb controlled diet, recheck basic metabolic panel in the morning Code status: Patient is a full code Disposition: Unknown at this time. DVT prophylaxis: Patient is currently taking warfarin. PT INR daily, provider to dose warfarin. Current visit: Yes Status: Acute Scores CHADS-VASc Congestive heart failure: yes Hypertension: yes Age 75 years or older: no Diabetes mellitus: yes Stroke, TIA, or TE: no Vascular disease: no Age 65 to 74 years: no Sex category (female): Male CHADS-VASc Score: 3 Quality AMI Clinical Trial Participant: No VTE Deep Vein Thrombosis/Pulmonary Embolism Present on Admission: No
[2018-09-11] MEDS: INSULIN GLARGINE 100 UNIT/ML 3ML PEN 25 UNIT SUBCUT (21:07)
[2018-09-11] MEDS: WARFARIN 5 MG TABLET PO (21:09)
[2018-09-11] MEDS: TRAZODONE 50 MG TABLET 150 MG PO (21:09)
[2018-09-11] MEDS: CARVEDILOL 25 MG TABLET PO (21:09)
[2018-09-11] MEDS: ATORVASTATIN 20 MG TABLET 40 MG PO (21:09)
[2018-09-11 21:43] LABS: Troponin I < 0.012 ng/mL (0.01-0.034)
[2018-09-11 22:24] LABS: Free T4, Direct Thyroxine 0.77 ng/dL (0.78-2.19)
[2018-09-12] VITALS (8 sets, daily range): BP systolic 97–135; BP diastolic 52–71; PULSE 56–78; RESP 15–20; TEMP 36.1–36.8; O2SAT 95–98
[2018-09-12] MEDS: WARFARIN 2.5 MG TABLET PO (00:03)
--- NOTE | 2018-09-12 02:24 | PC.NURSE ---
Addendum entered by Shasta Paredes R.N. 09/12/18 06:02: Patient has been up in chair since 0500 after standing at bedside to void, remains in SB rate 50s, BP stable, denies chest pain, shortness of breath at rest, or dizziness. Original Note: Resumed care of patient at 2330, diltiazem gtt infusing at 5mg/hr, continues to be in A-fib CVR 70-80s, BP 110/55, decreased diltiazem to 2.5mg/hr, will monitor. Denies chest pain or dyspnea, SpO2 95% on 2L. An addisional 2.5mg PO warfarin given per order. 0210-Patient has been sleeping since midnight after eating a snack. Diltiazem gtt stopped at 0100, BP 97/57(72), HR 80s. Converted to SA/SB with 1st degree AVB, BP 117/62.
[2018-09-12 02:51] LABS: INR 1.1 (0.9-1.3); Prothrombin Time 13.2 SECONDS (10.1-12.7)
[2018-09-12 03:11] LABS: Hemoglobin A1C% w Est Avg Glu 6.4 % (4.0-6.0)
[2018-09-12 03:33] LABS: Albumin 3.4 g/dL (3.5-5.0); Blood Urea Nitrogen 16 mg/dL (9-20); Calcium 8.7 mg/dL (8.4-10.2); Carbon Dioxide 22 mmol/L (22-32); Chloride 106 mmol/L (98-107); Estimated Glomerular Filt Rate > 60.0 mL/min (>60); Glucose 231 mg/dL (70-100); HEMOLYSIS < 15 (0-50); Phosphorous 3.6 mg/dL (2.5-4.5); Potassium 4.1 mmol/L (3.4-5.1); Sodium 135 mmol/L (137-145)
[2018-09-12 07:09] LABS: Troponin I 0.014 ng/mL (0.01-0.034)
--- NOTE | 2018-09-12 08:24 | PM.DS.1 ---
History of Present Illness Date Patient Seen: 09/11/18 Chief complaint: Chest Pain Narrative: Written by Dina MEJIAS: Kyle Zelaya is a 58-year-old morbidly obese male who was in his usual state of health and brought his for a provider appointment here at the hospital. He had chest pain earlier in the morning at approximately 6:00 a.m. described as being sharp on the left side. He did not inform his because he did not want to upset her however in the waiting room he was sitting with his dairy truck driver and complaining of pain. At that point, his dairy truck driver called paramedics who brought him here to the hospital. He describes the pain as being on the left side but denies radiation of pain to the jaw or his left arm. He also stated that his heart was ?racing?. He has chronic low back pain across his lumbar area which is bilateral. He denies fever sweats or chills, denies problems with his vision,. He denies shortness of breath or pain with inspiration or expiration, he does he denies nausea or vomiting, abdominal pain, urinary problems, skin rashes or lesions, numbing and tingling of his extremities, polyuria, he denies diarrhea or constipation, he does endorse having chronic anxiety, depression, and schizophrenia. States his diabetes is controlled said that his last A1c was 7.2. Discharge Providers Date of admission: 09/11/18 16:13 Discharge Date: 09/12/18 Primary care physician: Stephanie Bee MD Consults: 09/11/18 16:28 Consult to Pastoral Services Routine Comment: Navid 09/11/18 20:28 Consult to Discharge Planning Routine Comment: 09/11/18 20:34 Consult to Pharmacy Routine Comment: warfarin INR goal 2.0-3.0 Discharge provider: Leigha Johnson DO Summary Discharge Diagnosis: 1. Atrial fibrillation with RVR, present on admission. Resolved. 2. Hypertensive heart disease with diastolic congestive heart failure, chronic, present on admission. Stable. 3. Diabetes mellitus type 2, insulin using, present on admission. 4. Hyperlipidemia, chronic, present on admission. Stable. 5. Schizophrenia, chronic, present on admission. Stable. 6. Morbid obesity with chronic respiratory failure not on oxygen and secondary to obesity hypoventilation syndrome and obstructive sleep apnea on CPAP, chronic, present on admission. Stable. 7. Insomnia, chronic, present on admission. Stable. Hospital Course: Kyle Hilario is a 58-year-old male with past medical history significant for hypertensive heart disease, diastolic congestive heart failure, hyperlipidemia, atrial fibrillation with RVR on warfarin, diabetes mellitus type 2, insulin using, and schizophrenia who presented to the emergency department by EMS after experiencing left-sided, non-radiating chest pain, shortness of breath, diaphoresis, and palpitations and was found to be in atrial fibrillation with RVR. 1. Atrial fibrillation with RVR, present on admission. Resolved. -Patient presented with symptomatic atrial fibrillation with RVR and had left-sided, nonradiating chest pain, shortness of breath, diaphoresis, and palpitations. -Vp Treasurer at [facility] consulted by ED physician recommended medical management only as patient is low risk and no pursuit of stress test etc. -Patient arrived on the floor on a diltiazem gtt and was titrated off. Placed back on carvedilol 25 mg twice daily. -Patient is reportedly anticoagulated with warfarin, however, he is subtherapeutic at 1.0. His warfarin dose was changed to 7.5 mg daily and he was instructed to follow up with the warfarin clinic on 08/13/2018. 2. Hypertensive heart disease with diastolic congestive heart failure, chronic, present on admission. Stable. -Patient had a negative coronary catheterization in 2013. He has had multiple stress tests with his most recent nuclear medicine perfusion scan in the last month on 08/25/2018 with EF of 55-60%. -Continued amlodipine 10 mg daily, furosemide 40 mg twice daily, hydrochlorothiazide 25 mg daily, and losartan 100 mg daily. -Discontinued spironolactone 25 mg daily as patient does not have significant systolic CHF. Instructed patient to have his watchguard at [place] control his cardiac medications other than warfarin. Continue diabetic management with PCP. Continue schizophrenic management with psychiatrist. 3. Diabetes mellitus type 2, insulin using, present on admission. -Baseline hemoglobin A1c 6.4% 09/2018. -Held metformin until discharge. -Continued Lantus 45 units subcu twice daily. -Continued ACHS blood glucose checked and covered with medium dose correction scale insulin. -Continue gabapentin 600 mg twice daily and several muscle relaxants for diabetic peripheral neuropathy 4. Hyperlipidemia, chronic, present on admission. Stable. -Continued home dose of atorvastatin 40 mg daily at bedtime. 5. Schizophrenia, chronic, present on admission. Stable. -Continued lamotrigine 150 mg daily and quetiapine 200 mg daily. 6. Morbid obesity with chronic respiratory failure not on oxygen and secondary to obesity hypoventilation syndrome and obstructive sleep apnea on CPAP, chronic, present on admission. Stable. -Continued home inhalers/nebs. 7. Insomnia, chronic, present on admission. Stable. -Continued trazodone 150 mg daily at bedtime. Status at Discharge Overall status at discharge: patient is back to baseline Exam Vital Signs (past 8 hours): - 09/12/18 01:00 09/12/18 02:00 09/12/18 03:00 Temperature Pulse Rate 78 78 56 L Respiratory Rate 18 16 17 Blood Pressure 97/57 L 117/62 123/52 L Pulse Oximetry 95 95 96 09/12/18 04:03 09/12/18 05:00 Temperature 96.9 F L Pulse Rate 58 L 57 L Respiratory Rate 15 18 Blood Pressure 124/67 131/64 Pulse Oximetry 97 98 Oxygen Delivery Method Nasal Cannula Oxygen Flow Rate 2 Narrative Exam Narrative: General: Middle-aged gentleman sitting in bedside chair and in no acute distress, well-developed, well-nourished, appropriately interactive. HEENT: Normocephalic, atraumatic. External ears without defect. Pupils equal, round, and reactive to light. Anicteric sclerae, moist conjunctivae, and no lid lag. Neck: Supple with full range of motion. No jugular venous distension. No bruits. No lymphadenopathy or thyromegaly. Cardiovascular: Regular rate and rhythm without murmurs, rubs, or gallops appreciated Pulmonary: Clear to auscultation bilaterally without crackles, wheezes, or rhonchi. Normal respiratory effort with no use of accessory muscles. Abdomen: Soft, obese, bowel sounds present, nontender, nondistended. No hepatosplenomegaly or masses appreciated. Extremities: No clubbing, cyanosis, or edema. Skin: Normal temperature, turgor, and texture; no rash, ulcers, or subcutaneous nodules appreciated. Neurological: Cranial nerves grossly intact. Normal muscle strength, tone, and bulk. Reflexes, coordination, and sensory function within normal limits. No known gait impairment. Psychiatric: Normal mood and affect. Alert and oriented to person, place, and time. Objective Labs Result Diagrams: 09/11/18 09:55 09/12/18 02:35 Labs: Laboratory Results - last 24 hr 09/11/18 09/11/18 09/11/18 09:55 09:55 09:55 WBC 8.3 RBC 5.16 Hgb 13.4 L Hct 41.7 MCV 80.9 MCH 26.0 MCHC 32.1 RDW 15.7 H Plt Count 324 Neut % (Auto) 72.8 Lymph % (Auto) 17.5 L [place] % (Auto) 7.4 Eos % (Auto) 1.6 L Baso % (Auto) 0.7 Neut # (Auto) 6000 Lymph # (Auto) 1500 [place] # (Auto) 600 Eos # (Auto) 100 Baso # (Auto) 100 PT 12.7 INR 1.1 APTT 35 Sodium 137 Potassium 4.3 Chloride 104 Carbon Dioxide 21 L BUN 17 Creatinine 1.10 Estimated GFR > 60.0 BUN/Creatinine Ratio 15.5 Glucose 209 H Hemoglobin A1c Calcium 9.2 Phosphorus Total Bilirubin 0.3 AST 22 ALT 25 Alkaline Phosphatase 115 Total Creatine Kinase 199 H CK-MB (CK-2) 1.16 CK-MB (CK-2) Rel Index 0.6 L Troponin I 0.017 B-Natriuretic Peptide < 100 Total Protein 7.2 Albumin 4.2 Globulin 3.0 Albumin/Globulin Ratio 1.4 TSH Free T4 Urine Color Urine Appearance Urine pH Ur Specific [place] Urine Protein Urine Glucose (UA) Urine Ketones Urine Occult Blood Urine Nitrate Urine Bilirubin Urine Urobilinogen Ur Leukocyte Esterase Urine RBC Urine WBC Ur Squamous Epith Cells Amorphous Sediment Urine Bacteria Ur Culture Indicated? Nasal Screen MRSA (PCR) 09/11/18 09/11/18 09/11/18 13:04 13:49 16:07 WBC RBC Hgb Hct MCV MCH MCHC RDW Plt Count Neut % (Auto) Lymph % (Auto) [place] % (Auto) Eos % (Auto) Baso % (Auto) Neut # (Auto) Lymph # (Auto) [place] # (Auto) Eos # (Auto) Baso # (Auto) PT INR APTT Sodium Potassium Chloride Carbon Dioxide BUN Creatinine Estimated GFR BUN/Creatinine Ratio Glucose Hemoglobin A1c Calcium Phosphorus Total Bilirubin AST ALT Alkaline Phosphatase Total Creatine Kinase CK-MB (CK-2) CK-MB (CK-2) Rel Index Troponin I 0.020 B-Natriuretic Peptide Total Protein Albumin Globulin Albumin/Globulin Ratio TSH Free T4 Urine Color Urine Appearance Urine pH Ur Specific [place] Urine Protein Urine Glucose (UA) Urine Ketones Urine Occult Blood Urine Nitrate Urine Bilirubin Urine Urobilinogen Ur Leukocyte Esterase Urine RBC None seen Urine WBC 0-1/hpf Ur Squamous Epith Cells Amorphous Sediment Urine Bacteria Few (2-10) H Ur Culture Indicated? Cult not indicated Nasal Screen MRSA (PCR) Negative for mrsa 09/11/18 09/11/18 09/11/18 20:02 21:10 21:10 WBC RBC Hgb Hct MCV MCH MCHC RDW Plt Count Neut % (Auto) Lymph % (Auto) [place] % (Auto) Eos % (Auto) Baso % (Auto) Neut # (Auto) Lymph # (Auto) [place] # (Auto) Eos # (Auto) Baso # (Auto) PT INR APTT Sodium Potassium Chloride Carbon Dioxide BUN Creatinine Estimated GFR BUN/Creatinine Ratio Glucose Hemoglobin A1c Calcium Phosphorus Total Bilirubin AST ALT Alkaline Phosphatase Total Creatine Kinase CK-MB (CK-2) CK-MB (CK-2) Rel Index Troponin I < 0.012 B-Natriuretic Peptide Total Protein Albumin Globulin Albumin/Globulin Ratio TSH 2.30 Free T4 0.77 L Urine Color Yellow Urine Appearance Clear Urine pH 5.0 Ur Specific [place] 1.020 Urine Protein Negative Urine Glucose (UA) Negative Urine Ketones Negative Urine Occult Blood Trace-intact Urine Nitrate Negative Urine Bilirubin Negative Urine Urobilinogen 0.2 Ur Leukocyte Esterase Negative Urine RBC 0-1/hpf Urine WBC 1-5/hpf Ur Squamous Epith Cells 0-1 /hpf Amorphous Sediment 1+ Urine Bacteria Occasional (0-1) Ur Culture Indicated? Cult not indicated Nasal Screen MRSA (PCR) 09/12/18 09/12/18 09/12/18 02:35 02:35 02:35 WBC RBC Hgb Hct MCV MCH MCHC RDW Plt Count Neut % (Auto) Lymph % (Auto) [place] % (Auto) Eos % (Auto) Baso % (Auto) Neut # (Auto) Lymph # (Auto) [place] # (Auto) Eos # (Auto) Baso # (Auto) PT 13.2 H INR 1.1 APTT Sodium 135 L Potassium 4.1 Chloride 106 Carbon Dioxide 22 BUN 16 Creatinine 1.00 Estimated GFR > 60.0 BUN/Creatinine Ratio 16.0 Glucose 231 H Hemoglobin A1c 6.4 H Calcium 8.7 Phosphorus 3.6 Total Bilirubin AST ALT Alkaline Phosphatase Total Creatine Kinase CK-MB (CK-2) CK-MB (CK-2) Rel Index Troponin I B-Natriuretic Peptide Total Protein Albumin 3.4 L Globulin Albumin/Globulin Ratio TSH Free T4 Urine Color Urine Appearance Urine pH Ur Specific [place] Urine Protein Urine Glucose (UA) Urine Ketones Urine Occult Blood Urine Nitrate Urine Bilirubin Urine Urobilinogen Ur Leukocyte Esterase Urine RBC Urine WBC Ur Squamous Epith Cells Amorphous Sediment Urine Bacteria Ur Culture Indicated? Nasal Screen MRSA (PCR) 09/12/18 02:35 WBC RBC Hgb Hct MCV MCH MCHC RDW Plt Count Neut % (Auto) Lymph % (Auto) [place] % (Auto) Eos % (Auto) Baso % (Auto) Neut # (Auto) Lymph # (Auto) [place] # (Auto) Eos # (Auto) Baso # (Auto) PT INR APTT Sodium Potassium Chloride Carbon Dioxide BUN Creatinine Estimated GFR BUN/Creatinine Ratio Glucose Hemoglobin A1c Calcium Phosphorus Total Bilirubin AST ALT Alkaline Phosphatase Total Creatine Kinase CK-MB (CK-2) CK-MB (CK-2) Rel Index Troponin I 0.014 B-Natriuretic Peptide Total Protein Albumin Globulin Albumin/Globulin Ratio TSH Free T4 Urine Color Urine Appearance Urine pH Ur Specific [place] Urine Protein Urine Glucose (UA) Urine Ketones Urine Occult Blood Urine Nitrate Urine Bilirubin Urine Urobilinogen Ur Leukocyte Esterase Urine RBC Urine WBC Ur Squamous Epith Cells Amorphous Sediment Urine Bacteria Ur Culture Indicated? Nasal Screen MRSA (PCR) Discharge Plan Discharge Plan Patient Disposition: Home Discharge comment: You are being discharged home. Please follow-up with the Coumadin/warfarin Clinic tomorrow 08/13/2018. Your warfarin dose has been changed to 7.5 mg daily and will need to be adjusted at clinic. You should monitor your INR weekly until a stable dose has been established then 1-2 times per month. Please have your watchguard Dr. Sin manage (all other except warfarin) cardiac medications. Please have a Dr. Nguyễn manage all your psychiatric medications. Please have Dr. Bee manage all your other medications including diabetic medications. Also recommend that you have your thyroid function and incidental nodule evaluated by Dr. Bee. You may need to referred to an workforce development specialist for complete workup. Discharge Med Rec/Prescriptions Prescriptions: Continued furosemide 40 mg Tablet 40 mg PO BID RF: 0 atorvastatin 40 mg tablet 40 mg PO BEDTIME RF: 0 metformin 500 mg tablet 1,000 mg PO BID RF: 0 ipratropium-albuterol 0.5 mg-3 mg(2.5 mg base)/3 mL Solution For Nebulization 3 ml INHALATION QID PRN (Reason: Wheezing) RF: 0 benzonatate 200 mg Capsule 200 mg PO TID PRN (Reason: Cough) RF: 0 tramadol 50 mg tablet 1 - 2 tab PO QID PRN (Reason: Pain (Scale Score 4-6)) RF: 0 baclofen 10 mg Tablet 10 mg PO TID PRN (Reason: Muscle Spasm) RF: 0 trazodone 150 mg tablet 150 mg PO BEDTIME RF: 0 nitroglycerin 0.4 mg tablet, sublingual See Rx Instructions .ROUTE .COMPLEX RF: 0 montelukast 10 mg tablet 10 mg PO DAILY RF: 0 fluticasone propionate [Allergy Relief (fluticasone)] 50 mcg/actuation [place],Suspension 2 spray INTRANASAL DAILY RF: 0 Combivent Respimat 20-100 mcg/actuation Mist 1 puff INHALATION QID RF: 0 quetiapine 200 mg tablet 200 mg PO DAILY PRN (Reason: Anxiety) RF: 0 gabapentin 600 mg Tablet 600 mg PO BID RF: 0 amlodipine 5 mg Tablet 10 mg PO DAILY RF: 0 hydrochlorothiazide 25 mg Tablet 25 mg PO DAILY RF: 0 ketoconazole 2 % Cream 1 applic TOPICAL BID PRN (Reason: Rash) RF: 0 losartan 100 mg Tablet 100 mg PO DAILY RF: 0 loratadine 10 mg Tablet 10 mg PO DAILY RF: 0 Novolog Flexpen U-100 Insulin 100 unit/mL Insulin Pen 25 unit SUBCUT BID RF: 0 Symbicort 160-4.5 mcg/actuation Hfa Aerosol Inhaler 2 puff INHALATION BID RF: 0 Basaglar KwikPen U-100 Insulin 100 unit/mL (3 mL) Insulin Pen 45 unit SUBCUT BID RF: 0 lamotrigine 150 mg Tablet 150 mg PO DAILY RF: 0 Changed carvedilol 25 mg Tablet 25 mg PO BID Qty: 0 RF: 0 warfarin 5 mg tablet 1.5 tab PO DAILY Qty: 30 RF: 0 Discontinued spironolactone 25 mg Tablet 25 mg PO DAILY RF: 0 Follow up/Referrals: Stephanie Bee MD [Primary Care Provider] - 1 Week (Call to make appointment with Dr. Bee in 1 week. Follow-up appointment with Dr. Chi scheduled for 09/26 at 9:00 am. [phone]) Provider Discharge Instructions Diet: Carb-consistent/Diabetic, Low-fat, Low-sodium and Low-cholesterol Activity: Activity as tolerated Visit Report/Discharge Packet Instructions: DI for Atrial Fibrillation Discharge Data Primary Care Provider: Stephanie Bee Attending Provider: Leigha Johnson Admit Date/Time: 09/11/18 16:13 Discharges patient from system. Discharge Date/Time: 09/12/18 13:35 Quality AMI Clinical Trial Participant: No VTE Deep Vein Thrombosis/Pulmonary Embolism Present on Admission: No
--- NOTE | 2018-09-12 08:45 | CM.DANOTE ---
Addendum entered by Georgia Leong R.N. 09/12/18 09:56: Discussed patient at team rounds. Dr. Johnson does not feel that patient is homebound, but she mentioned concerns about medication management, for he sees a senior regulatory affairs specialist, as well as psychiatrist. She did educate patient significance of medication management. She is planning on discharging patient today. He is off his Diltiazem drip at this time. Original Note: DCP: Case received, EMR reviewed and met with patient. Introduced self and role. DCP template completed with information currently available. Patient is a 58 year old male who admitted yesterday afternoon to the care of the hospitalist team. PCP: Dr. Bee. Payer: Medicare/Medicaid. Patient came to hospital via ambulance due to symptoms of chest pain. Patient was noted to be in A-fib, which he has a history of. Patient is obese, has history of diabetes as well. Patient has been in ICU for Diltiazem drip. He is also on Coumadin therapy. Patient alert and oriented, pleasant. He uses a walker and cane at home, and he does not drive. He lives with his who has M.S., and he has KARINA caregivers that assist her. He stated that he is independent. Discussed his medications. He stated that he gets them at [facility]. They deliver to him. He stated that he had seen his provider last Tu, confirmed Dr. Bee. Asked him if he was getting his INRs done, and he stated he has been getting them done about every 2 weeks. Patient is homebound, in the perspective that he does not drive. Discussed home health nursing, and he thought that this may be a good idea. This is to oversee his medication management. P:DCP to continue to follow. Will discuss at team rounds if home health may be a good idea. Georgia Leong RN/Teletype Or [place] Keyboard Operator
[2018-09-12] MEDS: lamoTRIgine 100 MG TABLET 150 MG PO (09:09)
[2018-09-12] MEDS: MONTELUKAST 10 MG TABLET PO (09:10)
[2018-09-12] MEDS: CARVEDILOL 25 MG TABLET PO (09:10)
[2018-09-12 09:28] LABS: Troponin I < 0.012 ng/mL (0.01-0.034)
[2018-09-12] MEDS: AMLODIPINE 5 MG TABLET 10 MG PO (09:59)
[2018-09-12] MEDS: hydroCHLOROthiazide 25 MG TABLET PO (10:00)
[2018-09-12] MEDS: FLUTICASONE 120 SPRAY/16 GM SPRAY.SUSP NASAL (10:00)
[2018-09-12] MEDS: GABAPENTIN 600 MG TABLET PO (10:00)
[2018-09-12] MEDS: LOSARTAN 50 MG TABLET 100 MG PO (10:01)
[2018-09-12] MEDS: FUROSEMIDE 40 MG TABLET PO (10:01)
[2018-09-12] MEDS: INSULIN ASPART 100 UNIT/ML INSULN PEN 25 UNIT SUBCUT (10:01)
[2018-09-12] MEDS: INSULIN GLARGINE 100 UNIT/ML 3ML PEN 45 UNIT SUBCUT (10:01)
[2018-09-12] MEDS: LORATADINE 10 MG TABLET PO (10:02)
[2018-09-12] MEDS: METFORMIN HCL 500 MG TABLET 1000 MG PO (10:02)
--- NOTE | 2018-09-12 10:38 | CM.DPC ---
Addendum entered by Georgia Leong R.N. 09/12/18 14:13: Stacey Andrade from Medicaid transport, volunteer, called and stated that she was parked outside. Met with her and let her know that patient would be wheeled out to her car. FREDERICK Don, had patient in wheel-chair. Brought to her car, and was able to assist in front seat. Patient on his way home. Original Note: Addendum entered by Georgia Leong R.N. 09/12/18 14:12: Spoke to Christine at [employer] transport dispatch. She mentioned that she had gotten in touch with patrol driver, her name is Barb. Andrade. She stated that she would be near emergency room entrance, and would call this disease case manager rn when she arrives, around 1300. Updated Farida in ICU. Original Note: DCP Cont: Patient is to be discharged home today. Called Medicaid transport, gave information over the phone regarding patient. Filled out Medicaid form and faxed, per their request. They will call back with a time. Let them know over the phone that patient resides in [place]. Dr. Pettit wants patient to go home after lunch, so he can be monitored longer. P: Patient is to be discharged today home. Awaiting response from Medicaid transport. Georgia Leong RN/Restoration Officer
== END 2018-09-12 13:35 | disposition home or self-care (01) ==
LOC: ED 14:35 → ICU 17:13
PROVIDERS: Nurse Practitioner Family; Admitting Provider Internal Medicine; Emergency Provider Emergency Medicine; PCP Internal Medicine; Visit Provider Internal Medicine
DX: I48.0 Paroxysmal atrial fibrillation (principal); E11.65 Type 2 diabetes mellitus with hyperglycemia; I11.0 Hypertensive heart disease with heart failure; I50.32 Chronic diastolic (congestive) heart failure; E78.5 Hyperlipidemia, unspecified; R07.9 Chest pain, unspecified; I25.2 Old myocardial infarction; E66.9 Obesity, unspecified; Z68.41 Body mass index [BMI] 40.0-44.9, adult; F17.210 Nicotine dependence, cigarettes, uncomplicated; Z79.84 Long term (current) use of oral hypoglycemic drugs; Z79.01 Long term (current) use of anticoagulants
CPT/HCPCS: 36415; 36591; 71045; 71275; 80048; 80053; 80069; 81001; 81003; 81015; 82550; 82553; 82962; 83036; 83735; 83880; 84439; 84443; 84484; 85025; 85610; 85730; 87797; 93005; 96361; 96374; 96375; 99285; 99291; G0378; J2270; Q9967

== ENCOUNTER 2019-02-13 10:52 | Outpatient (CLI) | payer MEDICARE, MEDICAID, SELFPAY ==
[2018-09-11 16:15] VITALS: BMI 45.2
[2019-02-13] VITALS (10 sets, daily range): BP systolic 123–184; BP diastolic 49–97; PULSE 16–83; RESP 16–18; O2SAT 93–98
--- NOTE | 2019-02-13 10:55 | DI.RAD.S_ITS ---
PROCEDURE: PAIN L/S TRANSFORAMINAL INJECT INDICATIONS: SPONDYLOSIS FINDINGS: Fluoroscopic spot filming was performed to verify placement of spinal needles at the L4-L5 level(s), as labeled on the films. Appropriate location(s) of the needle tip(s) was confirmed by injection of iodinated contrast. IMPRESSION: Fluoroscopy for pain management. Dictated by: Earnest Marks M.D. on 02/13/2019 at 12:55 Approved by: Earnest Marks M.D. on 02/13/2019 at 12:56
[2019-02-13] MEDS: fentaNYL 100 MCG/2 ML INJ 50 MCG IV (11:57)
[2019-02-13] MEDS: MIDAZOLAM 5 MG/5 ML VIAL IV (11:57)
[2019-02-13] MEDS: BETAMETHASONE 30 MG/5 ML MDV 6 MG INJ (12:05)
[2019-02-13] MEDS: BUPIVACAINE 0.25% (PF) VIAL 2 ML INJ (12:05)
[2019-02-13] MEDS: DEXAMETHASONE 10 MG/ML VIAL 20 MG INJ (12:05)
[2019-02-13] MEDS: IOPAMIDOL 15 ML VIAL 3 ML INJ (12:06)
--- NOTE | 2019-02-13 12:14 | PC.NURSE ---
ASSISTING PT OFF TABLE AND TRANSPORTING TO POST PROC AREA IN STABLE CONDITION
--- NOTE | 2019-02-13 12:16 | P.PCN_ITS ---
Procedures Date/Time Date of procedure: 02/13/19 Time of procedure: 12:16 General Procedure description: PREOP DIAGNOSIS 1. FORMAINAL STENOSIS WITH LE SYMPTOMS POST OP DIAGNOSIS 1. FORMAINAL STENOSIS WITH LE SYMPTOMS PROCEDURES 1. FLUOROSCOPICALLY GUIDED CONTRAST CONTROLLED TRANSFORAMINAL EPIDURAL STEROID INJECTION - RIGHT L4/5 TFESI PHYSICIAN: Sreedhar Barraza DO INDICATIONS: Kyle is referred by for treatment of Foraminal Stenosis with Right LE Symptoms FINDINGS Foraminal Nerve Root Compression secondary to disc disease and facet hypertrophy DESCRIPTION OF PROCEDURE: Following review of allergy and review of potential side effects and complications, including, but not necessarily limited to, infection, allergic reaction, local tissue breakdown, stroke, temporary or permanent nerve injury, paralysis, and possible , the patient indicated that the patient understood and agreed to proceed. An informed consent document was signed by the patient, witnessed by a nurse, and placed in the patient's chart. Additionally, other treatment options including medications, modalities, and physical therapy were reviewed with the patient. After review of previous anaesthesic history and IV conscious sedation the patient was deemed safe to proceed with todays procedure with IV conscious sedation as ASA class II designation. Safety time-out was performed to confirm patient ID, procedure to be performed and site of procedure. IV sedation was accomplished with a combination of 2mg of Versed and 50mcg of Fentanyl was administered by the RN after DO order, titrated to patient comfort during the course of the procedure while the patient remained responsive to all verbal commands In the prone position following sterile prep and drape of the lumbar region, the Right L4/5 posterior neuroforamen was identified fluoroscopically. The skin was anesthetized via a 25-gauge 1.5-inch needle with 1% lidocaine solution. At this point, a 25-gauge 3.5-inch spinal needle was atraumatically introduced and advanced under fluoroscopic guidance through the posterior Right L4/5 neuroforamen to approximately the anterior aspect of the canal. Depth was confirmed on lateral view. Following negative aspiration, injection of approximately 1.5 cc of Isovue 200 under live fluoroscopy in the AP view confirmed excellent flow along the nerve root, into the epidural space without vascular or intrathecal uptake observed Radiological data, including multiple fluoroscopic views of the lumbosacral spine, reveal a spinal needle at the right L4/5 posterior neuroforamen. Subsequent views show flow of contrast material flowing superiorly and inferiorly along the nerve root confirming epidural flow. Subsequently, a test dose of 1.5 cc of 1% lidocaine solution was administered and patient was observed for two minutes for signs or symptoms of complications, including abdominal pain, shortness of breath, bilateral upper or lower extremity weakness, nausea and vomiting, prior to steroid injection. At this point, a total of 3cc or 20mg of dexamethasone and 50mcg of Fentanyl was injected without incident. The procedure tolerated the procedure well without signs or symptoms of complications prior to transfer to the recovery area continued monitoring without incident.The patient was then transferred to the recovery area where they were observed for an appropriate time after the injection. The patient reported a VAS score of 7 prior to the procedure and a post- procedure VAS of 0. Total Fluoroscopy Time: 20.9 seconds Total Conscious Sedation Time: 24min POST OP INSTRUCTIONS The patient was provided a Pain Log to continue to record their response to the target-specific procedure prior to follow-up visit with their referring physician. Additionally, specific post-injection care instructions and a contact number to our office were provided if concerns arise regarding possible complications associated with the procedure are suspected. Sreedhar Barraza, Complications: none
== END 2019-02-13 12:42 | disposition home or self-care (01) ==
LOC: RAD 10:55
PROVIDERS: PCP Internal Medicine; Visit Provider Physical Medicine & Rehabilitation
DX: M48.061 Spinal stenosis, lumbar region without neurogenic claudication (principal); M51.16 Intervertebral disc disorders with radiculopathy, lumbar region
CPT/HCPCS: 64483; 99152; J0702; J1040; J1100; J2250; J3010

== ENCOUNTER 2019-06-12 13:45 | Outpatient (CLI) | payer MEDICARE, MEDICAID, SELFPAY ==
[2018-09-11 16:15] VITALS: BMI 45.2
[2019-06-12] VITALS (8 sets, daily range): BP systolic 109–165; BP diastolic 58–82; PULSE 57–70; RESP 16–18; TEMP 36.3; O2SAT 90–95
--- NOTE | 2019-06-12 13:46 | DI.RAD.S_ITS ---
PROCEDURE: PAIN L/S TRANSFORAMINAL INJECT INDICATIONS: SPINAL STENOSIS FINDINGS: Fluoroscopic spot filming was performed to verify placement of spinal needles at the L4-L5 level(s), as labeled on the films. Appropriate location(s) of the needle tip(s) was confirmed by injection of iodinated contrast. Dictated by: Rom Jc M.D. on 06/12/2019 at 15:37 Approved by: Rom Jc M.D. on 06/12/2019 at 15:38
[2019-06-12] MEDS: fentaNYL 100 MCG/2 ML INJ 50 MCG IV (14:37)
[2019-06-12] MEDS: MIDAZOLAM 5 MG/5 ML VIAL IV (14:37)
[2019-06-12] MEDS: IOPAMIDOL 15 ML VIAL 3 ML INJ (14:42)
[2019-06-12] MEDS: DEXAMETHASONE 10 MG/ML VIAL 20 MG INJ (14:43)
[2019-06-12] MEDS: BETAMETHASONE 30 MG/5 ML MDV 6 MG INJ (14:44)
[2019-06-12] MEDS: BUPIVACAINE 0.25% (PF) VIAL 2 ML INJ (14:44)
--- NOTE | 2019-06-12 14:51 | P.PCN_ITS ---
Procedures Date/Time Date of procedure: 06/12/19 Time of procedure: 14:51 General Procedure description: PREOP DIAGNOSIS 1. FORMAINAL STENOSIS WITH LE SYMPTOMS POST OP DIAGNOSIS 1. FORMAINAL STENOSIS WITH LE SYMPTOMS PROCEDURES 1. FLUOROSCOPICALLY GUIDED CONTRAST CONTROLLED TRANSFORAMINAL EPIDURAL STEROID INJECTION - RIGHT L4/5 TFESI PHYSICIAN: Sreedhar Barraza DO INDICATIONS: Kyle is referred by for treatment of Foraminal Stenosis with Right LE Symptoms FINDINGS Foraminal Nerve Root Compression secondary to disc disease and facet hypertrophy DESCRIPTION OF PROCEDURE: Following review of allergy and review of potential side effects and complications, including, but not necessarily limited to, infection, allergic reaction, local tissue breakdown, stroke, temporary or permanent nerve injury, paralysis, and possible , the patient indicated that the patient understood and agreed to proceed. An informed consent document was signed by the patient, witnessed by a nurse, and placed in the patient's chart. Additionally, other treatment options including medications, modalities, and physical therapy were reviewed with the patient. After review of previous anaesthesic history and IV conscious sedation the patient was deemed safe to proceed with todays procedure with IV conscious sedation as ASA class II designation. Safety time-out was performed to confirm patient ID, procedure to be performed and site of procedure. IV sedation was accomplished with a combination of 2mg of Versed and 50mcg of Fentanyl was administered by the RN after DO order, titrated to patient comfort during the course of the procedure while the patient remained responsive to all verbal commands In the prone position following sterile prep and drape of the lumbar region, the Right L4/5 posterior neuroforamen was identified fluoroscopically. The skin was anesthetized via a 25-gauge 1.5-inch needle with 1% lidocaine solution. At this point, a 22-gauge 5-inch spinal needle was atraumatically introduced and advanced under fluoroscopic guidance through the posterior Right L4/5 neuroforamen to approximately the anterior aspect of the canal. Depth was confirmed on lateral view. Following negative aspiration, injection of approximately 1.5 cc of Isovue 200 under live fluoroscopy in the AP view confirmed excellent flow along the nerve root, into the epidural space without vascular or intrathecal uptake observed Radiological data, including multiple fluoroscopic views of the lumbosacral spine, reveal a spinal needle at the right L4/5 posterior neuroforamen. Subsequent views show flow of contrast material flowing superiorly and inferiorly along the nerve root confirming epidural flow. Subsequently, a test dose of 1.5 cc of 1% lidocaine solution was administered and patient was observed for two minutes for signs or symptoms of complications, including abdominal pain, shortness of breath, bilateral upper or lower extremity weakness, nausea and vomiting, prior to steroid injection. At this point, a total of 3cc or 20mg of dexamethasone and 6mg of betamethasone was injected without incident. The procedure tolerated the procedure well without signs or symptoms of complications prior to transfer to the recovery area continued monitoring without incident.The patient was then transferred to the recovery area where they were observed for an appropriate time after the injection. The patient reported a VAS score of 7 prior to the procedure and a post- procedure VAS of 0. Total Fluoroscopy Time: 20.9 seconds Total Conscious Sedation Time: 24min POST OP INSTRUCTIONS The patient was provided a Pain Log to continue to record their response to the target-specific procedure prior to follow-up visit with their referring physician. Additionally, specific post-injection care instructions and a contact number to our office were provided if concerns arise regarding possible complications associated with the procedure are suspected. Sreedhar Barraza, Complications: none
--- NOTE | 2019-06-12 15:02 | PC.NURSE ---
POst procedure note: Patient medicated per providers orders. VSS, O2 Sat 91-93% on 3L/PAD HAND. Hx Sleep apnea. Able to sit up and transfer to wheelchair with stand by assist. Denied any numbness or tingling. Handoff report given to Mireille Ford.
== END 2019-06-12 15:20 | disposition home or self-care (01) ==
PROVIDERS: PCP Internal Medicine; Visit Provider Physical Medicine & Rehabilitation
DX: M48.061 Spinal stenosis, lumbar region without neurogenic claudication (principal); M51.16 Intervertebral disc disorders with radiculopathy, lumbar region
CPT/HCPCS: 64483; 99152; J0702; J1100; J2250; J3010

== ENCOUNTER → 2021-02-28 10:37 | Outpatient (CLI) | payer OTHER, MEDICAID, SELFPAY ==
[2020-11-10 11:09] VITALS: BMI 45.2
[2021-02-28 12:58] LABS: COVID19 -Nasal RAPID Negative (Negative)
== END ==
PROVIDERS: PCP Internal Medicine; Visit Provider Physical Medicine & Rehabilitation
DX: Z20.822 Contact with and (suspected) exposure to COVID-19 (principal)
CPT/HCPCS: 87635; C9803

== ENCOUNTER 2021-03-01 10:06 | Outpatient (CLI) | payer OTHER, MEDICAID, SELFPAY ==
[2020-11-10 11:09] VITALS: BMI 45.2
[2021-03-01] VITALS (8 sets, daily range): BP systolic 176–198; BP diastolic 81–105; PULSE 78–91; RESP 14–22; TEMP 36.6; O2SAT 96–100
--- NOTE | 2021-03-01 10:07 | DI.RAD.S_ITS ---
PROCEDURE: PAIN L INTERLAMINAR/CAUDAL INJ INDICATIONS: SPONDYLOSIS COMPARISON: None. FINDINGS: Fluoroscopic spot filming was performed to verify placement of spinal needles at the L5-S1 level(s), as labeled on the films. Appropriate location(s) of the needle tip(s) was confirmed by injection of iodinated contrast. IMPRESSION: Fluoroscopic guidance Approved by: Aakash Varghese M.D. on 03/01/2021 at 13:50
[2021-03-01] MEDS: fentaNYL 100 MCG/2 ML INJ 50 MCG IV (11:05)
[2021-03-01] MEDS: MIDAZOLAM 5 MG/5 ML VIAL IV (11:05)
[2021-03-01] MEDS: DEXAMETHASONE 10 MG/ML VIAL 20 MG INJ (11:10)
[2021-03-01] MEDS: BETAMETHASONE 30 MG/5 ML MDV 12 MG INJ (11:11)
[2021-03-01] MEDS: BUPIVACAINE 0.25% (PF) VIAL 2 ML INJ (11:11)
[2021-03-01] MEDS: IOPAMIDOL 15 ML VIAL 3 ML INJ (11:12)
--- NOTE | 2021-03-01 11:19 | PM.PROC.IR.1 ---
Date/Time/Diagnoses Date of procedure: 03/01/21 Time of procedure: 11:19 Pre-procedure diagnosis: 1. HNP WITH RADICULAR FEATURES, 2. MULTILEVEL CENTRAL STENOSIS, Post-procedure diagnosis: same Procedure Notes Procedure: 1. FLUOROSCOPICALLY GUIDED CONTRAST CONTROLLED INTERLAMINAR EPIDURAL STEROID INJECTION - L5/S1 Indications: Kyle is referred by Dr. Bee for treatment of Bilateral Foraminal Stenosis L>R LE symptoms. Physician: Sreedhar Barraza Total Fluoroscopy time (seconds): 5 Total sedation minutes: 10 Complications: none Procedure in detail & Post-procedure care: FINDINGS Multilevel Central Spinal Stenosis with Nerve Root Compression DESCRIPTION OF PROCEDURE Fluoroscopically guided, contrast-controlled L5/S1 translaminar epidural steroid injection. Following review of allergy and review of potential side effects and complications, including, but not necessarily limited to, infection, allergic reaction, local tissue breakdown, temporary as well as permanent nerve injury, paralysis, stroke and possible , the patient indicated that the patient understood and agreed to proceed. An informed consent document was signed by the patient, witnessed by a nurse, and placed in the patient's chart. Additionally, other treatment options including modalities, medications, and physical therapy were reviewed with the patient. After review of previous anaesthesic history and IV conscious sedation the patient was deemed safe to proceed with today?s procedure with IV conscious sedation as ASA class II designation. Safety time-out was performed to confirm patient ID, procedure to be performed and site of procedure. IV sedation was accomplished with a combination of 2mg of Versed and 50mcg of Fentanyl administered by the RN after DO order, titrated to patient comfort during the course of the procedure while the patient remained responsive to all verbal commands. In the prone position, following sterile prep and drape of the lumbar region, the L5/S1 translaminar space was identified fluoroscopically. The skin was anesthetized via a 25-gauge, 1.5-inch needle with 1% lidocaine solution. At this point, a 22-gauge short bevel spinal needle was atraumatically introduced and advanced under fluoroscopic guidance into the region of the L5/S1 translaminar space. Depth was confirmed on lateral view. Radiological data, including multiple fluoroscopic views of the lumbar spine, reveal a spinal needle at the L5/S1 translaminar space. Lateral views then show placement of the needle in the epidural space. Subsequent views show contrast material flowing superiorly and inferiorly in the epidural space. No vascular or intrathecal uptake is observed. At this point, using loss of resistance technique with saline and air, the epidural space was entered. This was confirmed following negative aspiration with injection of approximately 1.5cc of Isovue 200, showing excellent epidural flow without vascular or intrathecal uptake. At this point, 1 cc of 1% lidocaine solution combined with 3cc or 20mg of dexamethasone and 12mg of betamethasone was injected without incident. The patent tolerated the procedure without signs of symptoms of complications prior to transfer to the recovery area for further monitoring. The patient was then transferred to the recovery area where they were observed for an appropriate period of time after the injection. The patient reported a VAS score of 6 prior to the procedure and a post-procedure VAS of 0. POST OP INSTRUCTIONS The patient was provided a Pain Log to continue to record their response to the target-specific procedure prior to follow-up visit with their referring physician. Additionally, specific post-injection care instructions and a contact number to our office were provided if concerns arise regarding possible complications associated with the procedure are suspected.
== END 2021-03-01 11:38 | disposition home or self-care (01) ==
LOC: RAD 10:07
PROVIDERS: PCP Internal Medicine; Referring Provider Physical Medicine & Rehabilitation; Visit Provider Physical Medicine & Rehabilitation
DX: M48.07 Spinal stenosis, lumbosacral region (principal); M51.17 Intervertebral disc disorders with radiculopathy, lumbosacral region
CPT/HCPCS: 62323; 99152; J0702; J1100; J2250; J3010

== ENCOUNTER → 2021-10-18 12:48 | Outpatient (CLI) | payer OTHER, MEDICAID, SELFPAY ==
[2020-11-10 11:09] VITALS: BMI 45.2
[2021-10-18 14:28] LABS: COVID19 -Nasal RAPID Negative (Negative)
== END ==
PROVIDERS: PCP Internal Medicine; Visit Provider Physical Medicine & Rehabilitation
DX: Z20.822 Contact with and (suspected) exposure to COVID-19 (principal)
CPT/HCPCS: 87635; C9803

== ENCOUNTER 2021-10-20 14:36 | Outpatient (CLI) | payer OTHER, MEDICAID, SELFPAY ==
[2020-11-10 11:09] VITALS: BMI 45.2
[2021-10-20] VITALS (9 sets, daily range): BP systolic 172–218; BP diastolic 72–101; PULSE 73–80; RESP 14–22; TEMP 36.5; O2SAT 97–99
--- NOTE | 2021-10-20 14:38 | DI.RAD.S_ITS ---
PROCEDURE: PAIN L/S TRANSFORAMINAL INJECT INDICATIONS: SPONDYLOSIS COMPARISON: [facility], , PAIN L/S TRANSFORAMINAL INJECT, 06/12/2019, 14:39. FINDINGS: Fluoroscopic spot filming was performed to verify placement of spinal needles at the lumbosacral level(s), as labeled on the films. Appropriate location(s) of the needle tip(s) was confirmed by injection of iodinated contrast. IMPRESSION: Needle placement at the lumbosacral level. Dictated by: Earl Hernandez M.D. on 10/20/2021 at 16:55 Approved by: Earl Hernandez M.D. on 10/20/2021 at 16:56
[2021-10-20] MEDS: MIDAZOLAM 2 MG/2 ML VIAL IV (16:22)
[2021-10-20] MEDS: BETAMETHASONE 30 MG/5 ML MDV 6 MG INJ (16:25)
[2021-10-20] MEDS: DEXAMETHASONE 10 MG/ML VIAL 20 MG INJ (16:25)
[2021-10-20] MEDS: BUPIVACAINE 0.25% (PF) VIAL 2 ML INJ (16:26)
[2021-10-20] MEDS: IOPAMIDOL 15 ML VIAL 3 ML INJ (16:26)
--- NOTE | 2021-10-20 16:47 | P.PCN_ITS ---
Date/Time/Diagnoses Date of procedure: 10/20/21 Time of procedure: 16:47 Pre-procedure diagnosis: 1. FORAMINAL STENOSIS WITH LE SYMPTOMS Post-procedure diagnosis: same Procedure Notes Procedure: 1. FLUOROSCOPICALLY GUIDED CONTRAST CONTROLLED TRANSFORAMINAL EPIDURAL STEROID INJECTION - Left L5/S1 Indications: Kyle is referred by Dr. Bee for treatment of Foraminal Stenosis with Left LE Symptoms Physician: Sreedhar Barraza Total Fluoroscopy time (seconds): 35 Total sedation minutes: 18 Complications: none Procedure in detail & Post-procedure care: FINDINGS Foraminal Nerve Root Compression secondary to disc disease and facet hypertrophy DESCRIPTION OF PROCEDURE Following review of allergy and review of potential side effects and complications, including, but not necessarily limited to, infection, allergic reaction, local tissue breakdown, stroke, temporary or permanent nerve injury, paralysis, and possible , the patient indicated that the patient understood and agreed to proceed. An informed consent document was signed by the patient, witnessed by a nurse, and placed in the patient's chart. Additionally, other treatment options including medications, modalities, and physical therapy were reviewed with the patient. After review of previous anaesthesic history and IV conscious sedation the patient was deemed safe to proceed with today?s procedure with IV conscious sedation as ASA class II designation. Safety time-out was performed to confirm patient ID, procedure to be performed and site of procedure. IV sedation was accomplished with a combination of 2mg of Versed was administered by the RN after DO order, titrated to patient comfort during the course of the procedure while the patient remained responsive to all verbal commands In the prone position following sterile prep and drape of the lumbar region, the Left L5/S1 posterior neuroforamen was identified fluoroscopically. The skin was anesthetized via a 25-gauge 1.5-inch needle with 1% lidocaine solution. At this point, a 22-gauge 5-inch spinal needle was atraumatically introduced and advanced under fluoroscopic guidance through the posterior Left L5/S1 neuroforamen to approximately the anterior aspect of the canal. Depth was confirmed on lateral view. Following negative aspiration, injection of approximately 1.5 cc of Isovue 200 under live fluoroscopy in the AP view confirmed excellent flow along the nerve root, into the epidural space without vascular or intrathecal uptake observed Radiological data, including multiple fluoroscopic views of the lumbosacral spine, reveal a spinal needle at the Left L5/S1 posterior neuroforamen. Subsequent views show flow of contrast material flowing superiorly and inferiorly along the nerve root confirming epidural flow. Subsequently, a test dose of 1.5 cc of 1% lidocaine solution was administered and patient was observed for two minutes for signs or symptoms of complications, including abdominal pain, shortness of breath, bilateral upper or lower extremity weakness, nausea and vomiting, prior to steroid injection. At this point, a total of 3cc or 20mg of dexamethasone and 6mg of betamethasone was injected without incident. The procedure tolerated the procedure well without signs or symptoms of complications prior to transfer to the recovery area continued monitoring without incident. The patient was then transferred to the recovery area where they were observed for an appropriate time after the injection. The patient reported a VAS score of 7 prior to the procedure and a post-procedure VAS of 0. POST OP INSTRUCTIONS The patient was provided a Pain Log to continue to record their response to the target-specific procedure prior to follow-up visit with their referring physic quinton. Additionally, specific post-injection care instructions and a contact number to our office were provided if concerns arise regarding possible complications associated with the procedure are suspected.
== END 2021-10-20 17:01 | disposition home or self-care (01) ==
PROVIDERS: PCP Internal Medicine; Referring Provider Physical Medicine & Rehabilitation; Visit Provider Physical Medicine & Rehabilitation
DX: M48.07 Spinal stenosis, lumbosacral region (principal); M51.17 Intervertebral disc disorders with radiculopathy, lumbosacral region
CPT/HCPCS: 64483; 99152; J0702; J1100; J2250

== ENCOUNTER 2022-01-23 13:01 | Emergency (ER) | payer OTHER, MEDICAID, SELFPAY ==
[2020-11-10 11:09] VITALS: BMI 45.2
[2022-01-23 13:18] VITALS: BP 180/81; PULSE 85; RESP 18; TEMP 36.3; O2SAT 99; BMI 42.8
--- NOTE | 2022-01-23 13:49 | ED_ITS ---
HPI - Skin/Abscess/Foreign Bdy <MAGALIE Rosario - Last Filed: 01/23/22 15:00> General Chief complaint: Skin/Abscess/Foreign Body Stated complaint: bump on inner rt. thigh Time Seen by Provider: 01/23/22 13:27 Source: patient Mode of arrival: Ambulatory Limitations: no limitations History of Present Illness HPI narrative: 61-year-old male, smoker with history of diabetes, presents emergency department with a right inner thigh abscess x1 week. Patient reports that his thighs rubbing together when he walks has been having a lot pain on his right side, making it difficult to walk. Patient is requesting to have it drained. Patient denies ever requiring drainage in the past. Related Data Home Medications Medication Instructions Recorded Confirmed atorvastatin 40 mg tablet 40 mg PO BEDTIME 09/11/18 02/09/21 ipratropium 0.5 mg-albuterol 3 mg 3 ml inhalation QID PRN Wheezing 09/11/18 02/09/21 (2.5 mg base)/3 mL nebulization soln metformin 500 mg tablet 1,000 mg PO BID 09/11/18 02/09/21 montelukast 10 mg tablet 10 mg PO DAILY 09/11/18 02/09/21 nitroglycerin 0.4 mg sublingual See Rx Instructions .Route .COMPLEX 09/11/18 02/09/21 tablet quetiapine 200 mg tablet 200 mg PO DAILY PRN Anxiety 09/11/18 02/09/21 trazodone 150 mg tablet 150 mg PO BEDTIME 09/11/18 02/09/21 amlodipine 5 mg tablet 10 mg PO DAILY 09/12/18 02/09/21 budesonide-formoterol HFA 160 2 puff inhalation BID 09/12/18 02/09/21 mcg-4.5 mcg/actuation aerosol inhaler (Symbicort) insulin aspart U-100 100 unit/mL 25 unit SUBCUT BID 09/12/18 02/09/21 (3 mL) subcutaneous pen (Novolog Flexpen U-100 Insulin aspart) insulin glargine 100 unit/mL (3 45 unit SUBCUT BID 09/12/18 02/09/21 mL) subcutaneous pen (Basaglar KwikPen U-100 Insulin) lamotrigine 150 mg tablet 150 mg PO DAILY 09/12/18 02/09/21 loratadine 10 mg tablet 10 mg PO DAILY 09/12/18 02/09/21 losartan 100 mg tablet 100 mg PO DAILY 09/12/18 02/09/21 allopurinol 300 mg tablet 300 mg PO BID 12/04/18 02/09/21 aspirin 81 mg chewable tablet 81 mg PO DAILY 12/04/18 02/09/21 pantoprazole 40 mg tablet,delayed 40 mg PO DAILY 12/04/18 02/09/21 release clonazepam 1 mg tablet mg PO 12/10/19 02/09/21 terazosin 10 mg capsule mg PO 12/10/19 02/09/21 benztropine 1 mg tablet 1 mg PO DAILY 02/09/21 02/09/21 chlorthalidone 50 mg tablet 50 mg PO DAILY 09/23/21 clopidogrel 75 mg tablet 75 mg PO DAILY 09/23/21 diclofenac sodium 1 % topical gel topical 09/23/21 doxazosin 2 mg tablet 2 mg PO DAILY 09/23/21 furosemide 20 mg tablet 20 mg PO DAILY 09/23/21 isosorbide mononitrate 30 mg mg PO 09/23/21 tablet,extended release 24 hr potassium chloride 10 mEq 10 meq PO DAILY 09/23/21 tablet,extended release spironolactone 25 mg tablet 25 mg PO DAILY 09/23/21 Previous Rx's Medication Instructions Recorded carvedilol 25 mg tablet 50 mg PO BID #0 tabs 12/04/18 clindamycin HCl 150 mg capsule 450 mg PO TID abscess 7 days #63 01/23/22 caps Allergies Allergy/AdvReac Type Severity Reaction Status Date / Time sulfamethoxazole Allergy Intermediate ITCHING Verified 01/23/22 13:20 [From BACTRIM] trimethoprim [From BACTRIM] Allergy Intermediate ITCHING Verified 01/23/22 13:20 Review of Systems <MAGALIE Rosario - Last Filed: 01/23/22 15:00> Review of Systems Narrative: Narrative: GENERAL: Denies chills, fatigue, fever, sweats. See HPI HEENT: Denies sinus pain, ear pain, sore throat, difficulty swallowing, dizziness. RESPIRATORY: Denies dyspnea, cough, wheezing, sputum. CARDIOVASCULAR: Denies chest pain, palpitations, edema. GASTROINTESTINAL: Denies nausea, vomiting, abdominal pain, diarrhea, constipation. : Denies dysuria, frequency, incontinence, hematuria, urinary retention, flank pain. MSK: Denies weakness, joint pain, or bony pain. SKIN: Endorses abscess on right inner thigh. NEUROLOGIC: Denies weakness, dizziness, headache, numbness, confusion. PSYCHIATRIC: No concerning psychosocial issues. 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 Obstructive sleep apnea Paroxysmal atrial fibrillation with rapid ventricular response Systemic hypertension Surgical History H/O umbilical hernia repair (~1966) History of right hip replacement (~2014) Family History Father Knee pain, chronic Mother Patient denies significant medical history Social History household members: spouse Smoking Status: Current some day smoker alcohol intake: current Smoking Status: Current some day smoker alcohol intake frequency: 0-2 drinks per day Substance Use Type: does not use Exam <MAGALIE Rosario - Last Filed: 01/23/22 15:00> Narrative Exam Narrative: Exam Narrative: GENERAL: This is a well-nourished, well-developed patient, in no acute distress HEAD: Atraumatic. Normocephalic. CARDIOVASCULAR: Regular rate and rhythm without murmurs, peripheral pulses intact, cap refill <2 sec. RESPIRATORY: Breath sounds equal and clear bilaterally. No wheezes, rales, or rhonchi. No cough. No increased respiratory effort. No accessory muscle use. GASTROINTESTINAL: Abdomen soft, non-tender, nondistended without guarding or rebound. No suprapubic pain. MSK: Moves all extremities. Normal range of motion, no clubbing or edema. Neurovascularly intact. NEURO: A&O x 3. SKIN: 1.5 cm abscess to right inner thigh. Site was cleansed, anesthetized and drained. Present drainage was cultured. Patient tolerated procedure well. Initial Vital Signs Initial Vital Signs: Vital Signs Temperature 97.4 F L 01/23/22 13:18 Pulse Rate 85 01/23/22 13:18 Respiratory Rate 18 01/23/22 13:18 Blood Pressure 180/81 H 01/23/22 13:18 Pulse Oximetry 99 01/23/22 13:18 Oxygen Delivery Method 01/23/22 13:18 Reviewed <Eloisa Mahoney DO - Last Filed: 01/25/22 09:51> Initial Vital Signs Initial Vital Signs: Vital Signs Temperature 97.4 F L 01/23/22 13:18 Pulse Rate 85 01/23/22 13:18 Respiratory Rate 18 01/23/22 13:18 Blood Pressure 180/81 H 01/23/22 13:18 Pulse Oximetry 99 01/23/22 13:18 Oxygen Delivery Method 01/23/22 13:18 Procedures <MAGALIE Rosario - Last Filed: 01/23/22 15:00> Abscess I/D I&D #1: Site: other (right inner thigh) Side (if applicable): right Local Anesthetic: lidocaine 2% Amount of anesthesia used (mL): 5 Technique: incised with #11 blade Amount of fluid expressed (mL): 10 Irrigation: Yes Packing used?: none Course <MAGALIE Rosario - Last Filed: 01/23/22 15:00> Orders Ordered: Discontinued Medications Lidocaine HCl (Lidocaine 2% Inj Sdv) 1 ml INJ NOW ONE Stop: 01/23/22 14:31 Last Admin: 01/23/22 14:28 Dose: 1 ml Documented By: AT Vital Signs Vital signs: Vital Signs - 8 hr 01/23/22 13:18 Temperature 97.4 F L Pulse Rate 85 Respiratory Rate 18 Blood Pressure 180/81 H Pulse Oximetry 99 Oxygen Delivery Method Room Air <Eloisa Mahoney DO - Last Filed: 01/25/22 09:51> Orders Ordered: Discontinued Medications Lidocaine HCl (Lidocaine 2% Inj Sdv) 1 ml INJ NOW ONE Stop: 01/23/22 14:31 Last Admin: 01/23/22 14:28 Dose: 1 ml Documented By: AT Vital Signs Vital signs: Vital Signs - 8 hr 01/23/22 13:18 Temperature 97.4 F L Pulse Rate 85 Respiratory Rate 18 Blood Pressure 180/81 H Pulse Oximetry 99 Oxygen Delivery Method Room Air MDM - Skin/Abscess/Foreign Bdy <MAGALIE Rosario - Last Filed: 01/23/22 15:00> Differential Diagnosis Differential diagnosis: Likely abscess of skin or subcutaneous tissue MDM Narrative Medical decision making narrative: 61-year-old male presents to the emergency department with abscess to right inner thigh. Site was cleansed, anesthetized and drained. Patient tolerated procedure well. Site was dressed for comfort. Will place patient on prophylactic antibiotics. Discussed wound care, plan of care and return precautions with patient, who was agreeable with course of action. Discharge Plan Departure Patient Disposition: Home Clinical Impression: Abscess Instructions: DI for Skin Abscess Activity Restrictions/Additional Instructions: *You have been diagnosed with a skin abscess. We were able to drain the abscess and will send off a sample for culture. We will contact you with the results only if it requires a change in antibiotics. I will place you on some prophylactic antibiotics to ensure this completely goes away. As we discussed, please apply warm compresses 2 to 3 times a day to the affected area to facilitate drainage. Replace the bandage as needed. For any worsening symptoms that include increased redness, swelling, pain or red streaking, please follow- up with your family doctor or return to the emergency department. *What to do: *Please continue to take your regular medications as directed. [ x] New medication prescriptions sent to your pharmacy: [[facility] [place]] [ ] New medication written as a paper prescription [ ] No new medications given *Please follow up with your primary care provider in 2-3 days, call for an appointment. Let them know you were seen in the Emergency Department and that we ask that you be seen in follow up. We will electronically transmit a record of today's note if your PCP is in our system *If you do not have a primary care provider please contact the [facility] Resource line at [phone]. They will ask some questions about your medical history and help get you set up with a doctor in the community. ? Return to ER if you should have any new, worsening or concerning symptoms, such as worsening pain, severe headache, confusion, chest pain, difficulty breathing, fever greater than 101 F, shaking chills, persistent vomiting to the point that you cannot drink fluids, or other new or worsening symptoms. Prescriptions: New clindamycin HCl 150 mg capsule 450 mg PO TID 7 Days Qty: 63 0RF No Action atorvastatin 40 mg tablet 40 mg PO BEDTIME metformin 500 mg tablet 1,000 mg PO BID ipratropium-albuterol 0.5 mg-3 mg(2.5 mg base)/3 mL Solution For Nebulization 3 ml INHALATION QID PRN (Reason: Wheezing) trazodone 150 mg tablet 150 mg PO BEDTIME nitroglycerin 0.4 mg tablet, sublingual See Rx Instructions .ROUTE .COMPLEX Rx Instructions: 0.4 mg sublingually q 5 min x 3 for chest pain, max # 3. montelukast 10 mg tablet 10 mg PO DAILY quetiapine 200 mg tablet 200 mg PO DAILY PRN (Reason: Anxiety) amlodipine 5 mg Tablet 10 mg PO DAILY losartan 100 mg Tablet 100 mg PO DAILY loratadine 10 mg Tablet 10 mg PO DAILY Novolog Flexpen U-100 Insulin 100 unit/mL Insulin Pen 25 unit SUBCUT BID Symbicort 160-4.5 mcg/actuation Hfa Aerosol Inhaler 2 puff INHALATION BID Basaglar KwikPen U-100 Insulin 100 unit/mL (3 mL) Insulin Pen 45 unit SUBCUT BID lamotrigine 150 mg Tablet 150 mg PO DAILY pantoprazole 40 mg tablet,delayed release (DR/EC) 40 mg PO DAILY allopurinol 300 mg tablet 300 mg PO BID aspirin 81 mg tablet,chewable 81 mg PO DAILY carvedilol 25 mg tablet 50 mg PO BID Qty: 0 0RF spironolactone 25 mg tablet 25 mg PO DAILY doxazosin 2 mg tablet 2 mg PO DAILY isosorbide mononitrate 30 mg tablet extended release 24 hr PO clopidogrel 75 mg tablet 75 mg PO DAILY potassium chloride 10 mEq tablet extended release 10 meq PO DAILY furosemide 20 mg tablet 20 mg PO DAILY diclofenac sodium 1 % gel topical chlorthalidone 50 mg tablet 50 mg PO DAILY clonazepam 1 mg tablet PO terazosin 10 mg capsule PO benztropine 1 mg tablet 1 mg PO DAILY Referrals: Stephanie Bee MD [Primary Care Provider] - Visit Report Forms: Patient Portal/API <Eloisa Mahoney DO - Last Filed: 01/25/22 09:51> Cosign ED Attending Cosignature Attestation: I was immediately available in the department for consultation. Documentation has been reviewed. I agree with assessment and plan.
[2022-01-23] MEDS: LIDOCAINE 2% INJ SDV 1 ML INJ (14:28)
[2022-01-23 15:03] VITALS: BP 190/86; PULSE 91; RESP 18; O2SAT 95
== END 2022-01-23 15:05 | disposition home or self-care (01) ==
PROVIDERS: Emergency Provider Registered Nurse; PCP Internal Medicine
DX: L02.415 Cutaneous abscess of right lower limb (principal)
CPT/HCPCS: 10060; 87070; 87075; 87077; 87205; 99282; 99283

== ENCOUNTER 2023-02-19 14:37 | Emergency (ER) | payer MEDICARE, MEDICAID, SELFPAY ==
[2020-11-10 11:09] VITALS: BMI 45.2
[2023-02-19] VITALS (16 sets, daily range): BP systolic 126–159; BP diastolic 61–81; PULSE 78–86; RESP 15–35; TEMP 37.2; O2SAT 91–98; BMI 39.9
[2023-02-19] MEDS: ALBUTEROL/IPRATROPIUM 3 ML AMPUL 6 ML INH (14:49)
--- NOTE | 2023-02-19 14:49 | DI.RAD.S_ITS ---
PROCEDURE: XR CHEST 1V INDICATIONS: chest pain TECHNIQUE: One view of the chest was acquired. COMPARISON: [facility], CR, XR CHEST 1V, 09/11/2018, 9:59. [facility], CR, XR CHEST 1 VIEW, 01/03/2022, 13:58. FINDINGS: Surgical changes and devices: Bilateral palmar Lungs and pleura: Bilateral pulmonary opacities and interstitial prominence is seen. No pleural effusion or pneumothorax. Mediastinum: Mediastinal contours appear normal. Heart size is mildly enlarged. Bones and chest wall: No suspicious bony lesions. Overlying soft tissues appear unremarkable. IMPRESSION: Mild cardiomegaly. Bilateral interstitial prominence and patchy opacities are suspicious for pulmonary edema/congestive heart failure versus possibly bilateral pneumonia. Approved by: Juliocesar Ayala M.D. on 02/19/2023 at 15:43
[2023-02-19] MEDS: ASPIRIN 81 MG CHEW TAB 324 MG PO (14:52)
[2023-02-19 15:02] LABS: Add Manual Diff / Slide Review NO; Basophils Absolute Auto 100 /uL (0-100); Basophils Percent Auto 0.7 % (0-2); Eosinophils Absolute Auto 200 /uL (0-450); Eosinophils Percent Auto 2.7 % (2-4); Hematocrit 32.9 % (41-53); Hemoglobin 10.6 g/dL (13.5-17.5); Lymphocytes Absolute Auto 1200 /uL (1100-4500); Lymphocytes Percent Auto 12.7 % (25-40); Mean Corpuscular HGB Conc 32.2 % (30-36); Mean Corpuscular Hemoglobin 26.2 PG (26-34); Mean Corpuscular Volume 81.4 fL (80-100); Monocytes Absolute Auto 800 /uL (0-900); Monocytes Percent Auto 8.9 % (3-14); Neutrophils Absolute Auto 6800 /uL (1500-7000); Platelet Count 245 X10^3/uL (150-400); Red Blood Cell Count 4.04 X10^6/uL (4.5-5.9); Red Cell Distribution Width 14.9 % (11.6-14.8); White Blood Cell Count 9.1 X10^3/uL (4.5-11.0)
[2023-02-19 15:08] LABS: Prothrombin Time 11.5 SECONDS (10.1-12.7)
[2023-02-19 15:10] LABS: PTT Partial Thromboplastin Tim 25 SECONDS (26-36)
[2023-02-19 15:12] LABS: Alanine Aminotransferase 16 IU/L (<50); Albumin Globulin Ratio 1.3 (1.0-2.8); Alkaline Phosphatase 64 U/L (38-126); Aspartate Aminotransferase 21 IU/L (17-59); Bilirubin Total 0.6 mg/dL (0.2-1.3); Blood Urea Nitrogen 32 mg/dL (9-20); Carbon Dioxide 27 mmol/L (22-32); Chloride 103 mmol/L (98-107); Creatine Kinase 191 U/L (55-170); Estimated Glomerular Filt Rate > 60 mL/min (>60); Globulin 3.1 g/dL (1.7-4.1); Glucose 170 mg/dL (80-110); Lipase 65 U/L (23-300); Magnesium 2.3 mg/dL (1.6-2.3); Potassium 4.4 mmol/L (3.4-5.1); Sodium 137 mmol/L (137-145); Total Protein 7.1 g/dL (6.3-8.2)
[2023-02-19 15:13] LABS: HEMOLYSIS 68 (0-50)
--- NOTE | 2023-02-19 15:22 | ED_ITS ---
HPI - SOB/Dyspnea General Chief Complaint: Shortness of Breath/Dyspnea Stated Complaint: sob Time Seen by Provider: 02/19/23 14:59 Source: patient and EMS Mode of arrival: EMS Limitations: no limitations History of Present Illness HPI Narrative: Patient 63-year-old male history of coronary artery disease with stents, type 2 diabetes, COPD, congestive heart failure presenting today with increasing shortness of breath. Reports that over the last 5 days he is had increasing shortness of breath with exertion orthopnea. Reports that he has oxygen as needed at home he typically does not need it 247 bit over the last 3 days he is required 1-2 L. he has taken a nebulizer treatment and is feeling a bit better. But does report left-sided chest pain that radiates to his left arm. He is followed by cardiology in [place]. He took a nitroglycerin prior to arrival. No fever or chills. Feels like his abdomen is more swollen than normal. Related Data Home Medications Medication Instructions Recorded Confirmed montelukast 10 mg tablet 10 mg PO DAILY 09/11/18 02/09/21 nitroglycerin 0.4 mg sublingual See Rx Instructions .Route .COMPLEX 09/11/18 02/09/21 tablet quetiapine 200 mg tablet 200 mg PO DAILY PRN Anxiety 09/11/18 02/09/21 trazodone 150 mg tablet 150 mg PO BEDTIME 09/11/18 02/09/21 amlodipine 5 mg tablet 10 mg PO DAILY 09/12/18 02/09/21 budesonide-formoterol HFA 160 2 puff inhalation BID 09/12/18 02/09/21 mcg-4.5 mcg/actuation aerosol inhaler (Symbicort) insulin aspart U-100 100 unit/mL 25 unit SUBCUT BID 09/12/18 02/09/21 (3 mL) subcutaneous pen (Novolog FlexPen U-100 Insulin aspart) insulin glargine 100 unit/mL (3 45 unit SUBCUT BID 09/12/18 02/09/21 mL) subcutaneous pen (Basaglar KwikPen U-100 Insulin) lamotrigine 150 mg tablet 150 mg PO DAILY 09/12/18 02/09/21 loratadine 10 mg tablet 10 mg PO DAILY 09/12/18 02/09/21 losartan 100 mg tablet 100 mg PO DAILY 09/12/18 02/09/21 allopurinol 300 mg tablet 300 mg PO BID 12/04/18 02/09/21 aspirin 81 mg chewable tablet 81 mg PO DAILY 12/04/18 02/09/21 pantoprazole 40 mg tablet,delayed 40 mg PO DAILY 12/04/18 02/09/21 release clonazepam 1 mg tablet mg PO 12/10/19 02/09/21 terazosin 10 mg capsule mg PO 12/10/19 02/09/21 benztropine 1 mg tablet 1 mg PO DAILY 02/09/21 02/09/21 chlorthalidone 50 mg tablet 50 mg PO DAILY 09/23/21 clopidogrel 75 mg tablet 75 mg PO DAILY 09/23/21 diclofenac sodium 1 % topical gel topical 09/23/21 doxazosin 2 mg tablet 2 mg PO DAILY 09/23/21 furosemide 20 mg tablet 20 mg PO DAILY 09/23/21 isosorbide mononitrate 30 mg mg PO 09/23/21 tablet,extended release 24 hr spironolactone 25 mg tablet 25 mg PO DAILY 09/23/21 citalopram 10 mg tablet 10 mg PO BEDTIME 01/25/22 ipratropium 20 mcg-albuterol 100 2 puff inhalation ONCE 01/25/22 mcg/actuation mist for inhalation (Combivent Respimat) metformin 1,000 mg tablet 1,000 mg PO BID 01/25/22 potassium chloride 10 mEq 10 meq PO DAILY 01/25/22 tablet,extended release(part/cryst) rosuvastatin 40 mg tablet 40 mg PO DAILY 01/25/22 Previous Rx's Medication Instructions Recorded carvedilol 25 mg tablet 50 mg PO BID #0 tabs 12/04/18 Allergies Allergy/AdvReac Type Severity Reaction Status Date / Time sulfamethoxazole Allergy Intermediate ITCHING Verified 01/25/22 14:16 [From BACTRIM] trimethoprim [From BACTRIM] Allergy Intermediate ITCHING Verified 01/25/22 14:16 Review of Systems Review of Systems ROS Unobtainable: All systems reviewed & are unremarkable except as noted in HPI and below Patient History Medical History Atrial fibrillation with rapid ventricular response Chest pain Chronic respiratory failure Degenerative joint disease of knee Diabetes type 2, controlled Diabetes type 2, uncontrolled Former smoker Grade III diastolic dysfunction Hyperlipidemia Hyperlipidemia Hypertensive heart disease with chronic diastolic congestive heart failure Hypertensive heart disease with heart failure Inpatient management required Non-ST elevated myocardial infarction 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 Obstructive sleep apnea Paroxysmal atrial fibrillation with rapid ventricular response Systemic hypertension Surgical History H/O umbilical hernia repair (~1966) History of right hip replacement (~2014) Family History Father Knee pain, chronic Mother Patient denies significant medical history Social History household members: spouse Smoking Status: Former smoker alcohol intake: current Smoking Status: Former smoker alcohol intake frequency: 0-2 drinks per day Substance Use Type: does not use Exam Initial Vital Signs Initial Vital Signs: Vital Signs Temperature 99 F 02/19/23 14:41 Pulse Rate 80 02/19/23 14:41 Respiratory Rate 24 02/19/23 14:41 Blood Pressure 140/62 02/19/23 14:41 Pulse Oximetry 98 02/19/23 14:41 Oxygen Delivery Method Nasal Cannula 02/19/23 14:41 Oxygen Flow Rate 2 02/19/23 14:41 GENERAL: Alert 63-year-old male appears well HEENT: Head atraumatic,EOMI, pupils reactive, face symmetric, moist mucous membranes CARDIOVASCULAR: Regular rate and rhythm without murmurs, rubs or gallops. RESPIRATORY: Breath sounds equal bilaterally, no wheezes rales or rhonchi. Mild conversational dyspnea ABDOMEN: Soft, nontender. Normoactive bowel sounds all 4 quadrants. No gua rding or rebound. EXTREMITIES: Normal range of motion, no clubbing or edema. Neurovascularly intact NEUROLOGICAL: Alert and oriented x4. SKIN: Warm, dry, no laceration, no petechiae, no rashes or lesions. Course Orders Ordered: ED Orders 02/19/23 14:44 EKG-12 Lead Stat 02/19/23 14:49 XR chest 1V Stat 02/19/23 14:55 BNP [NT-proBNP (BNP-Adult 18+)] Stat Complete Blood Count AUTO DIFF Stat Comprehensive Metabolic Panel Stat Lipase Stat Magnesium Stat PTT Partial Thromboplastin Ady Stat Prothrombin Time INR Stat Troponin & CK Cardiac Panel Stat 02/19/23 18:20 Trop I [Troponin I] Stat Nitroglycerin (Nitroglycerin 0.4 Mg Sl Tab) 0.4 mg SL [id number] PRN PRN Reason: Chest Pain Last Admin: 02/19/23 16:19 Dose: 0.4 mg Documented By: MPO Discontinued Medications Albuterol/Ipratropium (Albuterol/Ipratropium 3 Ml Ampul) 6 ml INH NOW ONE Stop: 02/19/23 14:45 Last Admin: 02/19/23 14:49 Dose: 6 ml Documented By: JAshleeF Aspirin (Aspirin 81 Mg Chew Tab) 324 mg PO NOW ONE Stop: 02/19/23 14:49 Last Admin: 02/19/23 14:52 Dose: 324 mg Documented By: MPO Furosemide (Furosemide 40 Mg/4 Ml Vial) 40 mg IV NOW ONE Stop: 02/19/23 15:24 Last Admin: 02/19/23 15:51 Dose: 40 mg Documented By: AMV Methylprednisolone (Methylprednisolone 125 Mg/2 Ml Vial) 125 mg IV NOW ONE Stop: 02/19/23 15:24 Last Admin: 02/19/23 15:51 Dose: 125 mg Documented By: AMV Vital Signs Vital signs: Vital Signs - 8 hr 02/19/23 14:41 02/19/23 14:49 02/19/23 16:19 Temperature 99 F Pulse Rate 80 78 80 Respiratory Rate 24 20 Blood Pressure 140/62 156/70 H Pulse Oximetry 98 98 Oxygen Delivery Method Nasal Cannula Nasal Cannula Oxygen Flow Rate 2 2 02/19/23 15:29 02/19/23 15:30 02/19/23 15:30 Temperature Pulse Rate 82 82 Respiratory Rate 15 15 Blood Pressure 158/71 H Pulse Oximetry 95 93 Oxygen Delivery Method Oxygen Flow Rate 02/19/23 16:00 02/19/23 16:01 02/19/23 16:01 Temperature Pulse Rate 81 81 Respiratory Rate 19 20 Blood Pressure 156/70 H Pulse Oximetry 94 94 Oxygen Delivery Method Oxygen Flow Rate 02/19/23 16:21 02/19/23 16:21 02/19/23 16:25 Temperature Pulse Rate 80 80 Respiratory Rate 23 18 Blood Pressure 159/72 H Pulse Oximetry 93 91 Oxygen Delivery Method Oxygen Flow Rate 02/19/23 16:25 02/19/23 16:30 02/19/23 17:00 Temperature Pulse Rate 79 80 Respiratory Rate 20 22 Blood Pressure 126/61 Pulse Oximetry 93 95 Oxygen Delivery Method Oxygen Flow Rate 02/19/23 17:24 02/19/23 17:24 02/19/23 17:30 Temperature Pulse Rate 81 80 Respiratory Rate 25 H 21 Blood Pressure 143/81 H Pulse Oximetry 96 97 Oxygen Delivery Method Oxygen Flow Rate 02/19/23 18:00 02/19/23 18:30 02/19/23 19:00 Temperature Pulse Rate 83 82 86 Respiratory Rate 21 20 35 H Blood Pressure Pulse Oximetry 92 96 94 Oxygen Delivery Method Oxygen Flow Rate MDM - SOB/Dyspnea Lab Data 02/19/23 14:55 02/19/23 14:55 Labs: Lab Results 02/19/23 02/19/23 02/19/23 Range/Units 14:55 14:55 14:55 WBC 9.1 (4.5-11.0) X10^3/uL RBC 4.04 L (4.5-5.9) X10^6/uL Hgb 10.6 L (13.5-17.5) g/dL Hct 32.9 L (41-53) % MCV 81.4 (80-100) fL MCH 26.2 (26-34) PG MCHC 32.2 (30-36) % RDW 14.9 H (11.6-14.8) % Plt Count 245 (150-400) X10^3/uL Neut % (Auto) 75.0 (50-75) % Lymph % (Auto) 12.7 L (25-40) % Lucas % (Auto) 8.9 (3-14) % Eos % (Auto) 2.7 (2-4) % Baso % (Auto) 0.7 (0-2) % Neut # (Auto) 6800 (6038-0460) /uL Lymph # (Auto) 1200 (7194-6766) /uL Lucas # (Auto) 800 (0-900) /uL Eos # (Auto) 200 (0-450) /uL Baso # (Auto) 100 (0-100) /uL PT 11.5 (10.1-12.7) SECONDS INR 1.0 (0.9-1.3) APTT 25 L (26-36) SECONDS Sodium 137 (137-145) mmol/L Potassium 4.4 (3.4-5.1) mmol/L Chloride 103 (98-107) mmol/L Carbon Dioxide 27 (22-32) mmol/L BUN 32 H (9-20) mg/dL Creatinine 1.28 H (0.66-1.25) mg/dL Estimated GFR > 60 (>60) mL/min BUN/Creatinine Ratio 25.0 H (6-22) Glucose 170 H (80-110) mg/dL Calcium 9.0 (8.4-10.2) mg/dL Magnesium 2.3 (1.6-2.3) mg/dL Total Bilirubin 0.6 (0.2-1.3) mg/dL AST 21 (17-59) IU/L ALT 16 (<50) IU/L Alkaline Phosphatase 64 (38-126) U/L Total Creatine Kinase 191 H (55-170) U/L Troponin I 0.014 (0.01-0.034) ng/mL NT-Pro-B Natriuret Pep (<125) pg/mL Total Protein 7.1 (6.3-8.2) g/dL Albumin 4.0 (3.5-5.0) g/dL Globulin 3.1 (1.7-4.1) g/dL Albumin/Globulin Ratio 1.3 (1.0-2.8) Lipase 65 (23-300) U/L 02/19/23 02/19/23 Range/Units 14:55 18:20 WBC (4.5-11.0) X10^3/uL RBC (4.5-5.9) X10^6/uL Hgb (13.5-17.5) g/dL Hct (41-53) % MCV (80-100) fL MCH (26-34) PG MCHC (30-36) % RDW (11.6-14.8) % Plt Count (150-400) X10^3/uL Neut % (Auto) (50-75) % Lymph % (Auto) (25-40) % Lucas % (Auto) (3-14) % Eos % (Auto) (2-4) % Baso % (Auto) (0-2) % Neut # (Auto) (1946-5372) /uL Lymph # (Auto) (7885-1157) /uL Lucas # (Auto) (0-900) /uL Eos # (Auto) (0-450) /uL Baso # (Auto) (0-100) /uL PT (10.1-12.7) SECONDS INR (0.9-1.3) APTT (26-36) SECONDS Sodium (137-145) mmol/L Potassium (3.4-5.1) mmol/L Chloride (98-107) mmol/L Carbon Dioxide (22-32) mmol/L BUN (9-20) mg/dL Creatinine (0.66-1.25) mg/dL Estimated GFR (>60) mL/min BUN/Creatinine Ratio (6-22) Glucose (80-110) mg/dL Calcium (8.4-10.2) mg/dL Magnesium (1.6-2.3) mg/dL Total Bilirubin (0.2-1.3) mg/dL AST (17-59) IU/L ALT (<50) IU/L Alkaline Phosphatase (38-126) U/L Total Creatine Kinase (55-170) U/L Troponin I 0.016 (0.01-0.034) ng/mL NT-Pro-B Natriuret Pep 519 H (<125) pg/mL Total Protein (6.3-8.2) g/dL Albumin (3.5-5.0) g/dL Globulin (1.7-4.1) g/dL Albumin/Globulin Ratio (1.0-2.8) Lipase (23-300) U/L Imaging Data Chest x-ray: Radiologist's Impression: PROCEDURE:? XR CHEST 1V ? INDICATIONS:? chest pain ? TECHNIQUE:? One view of the chest was acquired.? ? COMPARISON:? [facility], CR, XR CHEST 1V, 09/11/2018, 9:59.? [facility], CR, XR CHEST 1 VIEW, 01/03/2022, 13:58. ? FINDINGS:? ? Surgical changes and devices:? Bilateral palmar ? Lungs and pleura:? Bilateral pulmonary opacities and interstitial prominence is seen.? No pleural effusion or pneumothorax. ? Mediastinum:? Mediastinal contours appear normal.? Heart size is mildly enlarged.? ? Bones and chest wall:? No suspicious bony lesions.? Overlying soft tissues appear unremarkable.? ? ? IMPRESSION:? Mild cardiomegaly.? Bilateral interstitial prominence and patchy opacities are suspicious for pulmonary edema/congestive heart failure versus possibly bilateral pneumonia.? ? ? Approved by: Juliocesar Ayala M.D. on 02/19/2023 at 15:43? ECG Data Interpretation: Normal sinus rhythm rate 81 UT interval 184 QRS [address] changes or T- wave inversions similar to previous EKG mildly low voltage noted which is also similar MDM Narrative Medical decision making narrative: Patient has history of CAD CHF hypertension COPD has oxygen at home presenting with increasing shortness of breath. He was given DuoNeb treatment along with Solu-Medrol and Lasix here in the ED. he is not actually requiring oxygen is a ED rest O2 is 94-98% without significant dyspnea or tachypnea. Lungs are clear x-ray is clear. Labs: Reviewed no leukocytosis , mild anemia hemoglobin 10.6 hematocrit 32.9 previously 13.4 and 41.7 and 2019, BUN 32 creatinine 1.28, 2- troponins, BNP 519 Chest x-ray: Mild cardiomegaly Patient reports he was on oxygen at home but here he is not requiring oxygen. He is no obvious respiratory distress he is given Solu-Medrol DuoNeb and Lasix. Overall feeling better. He was reporting of some left-sided chest pain he has 2- troponins without EKG changes. At this time history of complaint is shortness of breath with multiple history including COPD and CHF. Chest x-ray suspicious for possible CHF he is having orthopnea as well BNP mildly elevated 519. At this time reasonable to increase Lasix to see if it helps Discharge Plan Departure Patient Disposition: Home Clinical Impression: Congestive heart failure Instructions: DI for Heart Failure Activity Restrictions/Additional Instructions: *You have been diagnosed with congestive heart failure *What to do: At this time you have multiple reasons why your short of breath no need for oxygen 247 at this time. You may still needed at night whatever makes you feel better *Continue to take medications as directed Increase furosemide to 40 mg twice a day for 3 days, then resume 20 twice a day *Follow up with your primary care provider in 2-3 days or call [phone] *Return to ER if you should have increasing chest pain shortness of breath or any new, worsening or concerning symptoms Prescriptions: No Action trazodone 150 mg tablet 150 mg PO BEDTIME nitroglycerin 0.4 mg tablet, sublingual See Rx Instructions .ROUTE .COMPLEX Rx Instructions: 0.4 mg sublingually q 5 min x 3 for chest pain, max # 3. montelukast 10 mg tablet 10 mg PO DAILY quetiapine 200 mg tablet 200 mg PO DAILY PRN (Reason: Anxiety) amlodipine 5 mg Tablet 10 mg PO DAILY losartan 100 mg Tablet 100 mg PO DAILY loratadine 10 mg Tablet 10 mg PO DAILY Novolog FlexPen U-100 Insulin 100 unit/mL Insulin Pen 25 unit SUBCUT BID Symbicort 160-4.5 mcg/actuation Hfa Aerosol Inhaler 2 puff INHALATION BID Basaglar KwikPen U-100 Insulin 100 unit/mL (3 mL) Insulin Pen 45 unit SUBCUT BID lamotrigine 150 mg Tablet 150 mg PO DAILY pantoprazole 40 mg tablet,delayed release (DR/EC) 40 mg PO DAILY allopurinol 300 mg tablet 300 mg PO BID aspirin 81 mg tablet,chewable 81 mg PO DAILY carvedilol 25 mg tablet 50 mg PO BID Qty: 0 0RF spironolactone 25 mg tablet 25 mg PO DAILY doxazosin 2 mg tablet 2 mg PO DAILY isosorbide mononitrate 30 mg tablet extended release 24 hr PO clopidogrel 75 mg tablet 75 mg PO DAILY furosemide 20 mg tablet 20 mg PO DAILY diclofenac sodium 1 % gel topical chlorthalidone 50 mg tablet 50 mg PO DAILY citalopram 10 mg tablet 10 mg PO BEDTIME rosuvastatin 40 mg tablet 40 mg PO DAILY potassium chloride 10 mEq tablet,ER particles/crystals 10 meq PO DAILY Combivent Respimat 20-100 mcg/actuation mist 2 puff inhalation ONCE metformin 1,000 mg tablet 1,000 mg PO BID clonazepam 1 mg tablet PO terazosin 10 mg capsule PO benztropine 1 mg tablet 1 mg PO DAILY Referrals: Stephanie Marrero MD [Primary Care Provider] - Stand Alone Forms: Patient Portal/API
[2023-02-19 15:24] LABS: Troponin I 0.014 ng/mL (0.01-0.034)
[2023-02-19] MEDS: methylPREDNISolone 125 MG/2 ML VIAL IV (15:51)
[2023-02-19] MEDS: FUROSEMIDE 40 MG/4 ML VIAL IV (15:51)
[2023-02-19] MEDS: NITROGLYCERIN 0.4 MG SL TAB SL (16:19)
[2023-02-19 18:40] LABS: NT-proBNP (BNP-Adult 18+) 519 pg/mL (<125)
[2023-02-19 19:05] LABS: Troponin I 0.016 ng/mL (0.01-0.034)
== END 2023-02-19 19:42 | disposition home or self-care (01) ==
PROVIDERS: Emergency Medicine; Emergency Provider Emergency Medicine; PCP Internal Medicine
DX: I50.9 Heart failure, unspecified (principal); R07.9 Chest pain, unspecified
CPT/HCPCS: 36415; 71045; 80053; 82550; 83690; 83735; 83880; 84484; 85025; 85610; 85730; 93005; 93010; 94640; 96374; 96375; 99284; 99285; J1940; J2930

== ENCOUNTER 2023-03-17 19:34 | Inpatient (IN) | payer MEDICARE, MEDICAID, SELFPAY ==
[2020-11-10 11:09] VITALS: BMI 45.2
[2023-03-17] VITALS (27 sets, daily range): BP systolic 101–131; BP diastolic 50–68; PULSE 67–75; RESP 10–32; TEMP 31–36.8; O2SAT 21–99; BMI 42.8
--- NOTE | 2023-03-17 19:42 | DI.RAD.S_ITS ---
PROCEDURE: XR CHEST 1V INDICATIONS: short of breath TECHNIQUE: One view of the chest was acquired. COMPARISON: [facility], CR, XR CHEST 1V, 02/19/2023, 14:51. [facility], CR, XR CHEST 1V, 09/11/2018, 9:59. FINDINGS: Surgical changes and devices: None. Lungs and pleura: Lungs are prominently edematous. No pleural effusions or pneumothorax. Mediastinum: Mediastinal contours appear normal. Heart size is globally enlarged. Bones and chest wall: No suspicious bony lesions. Overlying soft tissues appear unremarkable. IMPRESSION: Acute exacerbation of chronic CHF. Dictated by: Ulysses Friedman M.D. on 03/17/2023 at 20:19 Approved by: Ulysses Firedman M.D. on 03/17/2023 at 20:19
[2023-03-17] MEDS: ALBUTEROL/IPRATROPIUM 3 ML AMPUL INH (19:51)
[2023-03-17 19:59] LABS: Add Manual Diff / Slide Review NO; Basophils Absolute Auto 100 /uL (0-100); Eosinophils Absolute Auto 500 /uL (0-450); Eosinophils Percent Auto 5.8 % (2-4); Hematocrit 29.6 % (41-53); Hemoglobin 9.6 g/dL (13.5-17.5); Lymphocytes Absolute Auto 1700 /uL (1100-4500); Mean Corpuscular HGB Conc 32.3 % (30-36); Mean Corpuscular Hemoglobin 26.3 PG (26-34); Mean Corpuscular Volume 81.4 fL (80-100); Monocytes Absolute Auto 700 /uL (0-900); Monocytes Percent Auto 8.3 % (3-14); Neutrophils Absolute Auto 5000 /uL (1500-7000); Neutrophils Percent Auto 62.9 % (50-75); Platelet Count 265 X10^3/uL (150-400); Red Blood Cell Count 3.64 X10^6/uL (4.5-5.9); Red Cell Distribution Width 15.6 % (11.6-14.8); White Blood Cell Count 7.9 X10^3/uL (4.5-11.0)
[2023-03-17] MEDS: ALBUTEROL 2.5 MG/3 ML NEB (ADULT) 5 MG INH (20:03)
[2023-03-17 20:05] LABS: D Dimer 449 ng/ml (<500)
[2023-03-17 20:11] LABS: Alanine Aminotransferase 14 IU/L (<50); Albumin 3.8 g/dL (3.5-5.0); Albumin Globulin Ratio 1.4 (1.0-2.8); Alkaline Phosphatase 80 U/L (38-126); Aspartate Aminotransferase 17 IU/L (17-59); BUN Creatinine Ratio 20.7 (6-22); Bilirubin Total 0.2 mg/dL (0.2-1.3); Blood Urea Nitrogen 29 mg/dL (9-20); Calcium 8.8 mg/dL (8.4-10.2); Carbon Dioxide 25 mmol/L (22-32); Chloride 101 mmol/L (98-107); Creatine Kinase 210 U/L (55-170); Estimated Glomerular Filt Rate 56 mL/min (>60); Globulin 2.8 g/dL (1.7-4.1); Glucose 90 mg/dL (80-110); HEMOLYSIS < 15 (0-50); Lipase 79 U/L (23-300); Sodium 135 mmol/L (137-145); Total Protein 6.6 g/dL (6.3-8.2)
[2023-03-17 20:19] LABS: COVID19 -Nasal RAPID Negative (Negative)
[2023-03-17 20:23] LABS: NT-proBNP (BNP-Adult 18+) 586 pg/mL (<125); Troponin I 0.014 ng/mL (0.01-0.034)
[2023-03-17 20:29] LABS: Procalcitonin 0.08 ng/mL (<0.5)
[2023-03-17] MEDS: methylPREDNISolone 125 MG/2 ML VIAL IV (20:43)
[2023-03-17] MEDS: FUROSEMIDE 60 MG in SODIUM CHLORIDE 0.9% 50 ML 112 MG IV (21:19)
--- NOTE | 2023-03-17 22:01 | ED.SOB ---
HPI - SOB/Dyspnea General Chief Complaint: Shortness of Breath/Dyspnea Stated Complaint: SOB/weak Time Seen by Provider: 03/17/23 19:41 Source: patient and EMS Mode of arrival: EMS Limitations: no limitations History of Present Illness HPI Narrative: Patient is a 63-year-old male history of COPD CHF hypertension obesity insulin-dependent diabetes, coronary artery disease with presenting today with increasing shortness of breath. He apparently has been on home O2 but has required more lately. He has not been feeling very well he is Vaporub on his chest. He reports very difficult time breathing and is obviously dyspneic. Can not find a comfortable position but not hypoxic on 4 L. He describes chest tightness. EMS reports that is oxygen was off when they arrived they put him back on his oxygen that seemed to help his symptoms nothing further was done in route. on lasix at home 40 mg. Related Data Home Medications Medication Instructions Recorded Confirmed montelukast 10 mg tablet 10 mg PO DAILY 09/11/18 02/09/21 nitroglycerin 0.4 mg sublingual See Rx Instructions .Route .COMPLEX 09/11/18 02/09/21 tablet quetiapine 200 mg tablet 200 mg PO DAILY PRN Anxiety 09/11/18 02/09/21 trazodone 150 mg tablet 150 mg PO BEDTIME 09/11/18 02/09/21 amlodipine 5 mg tablet 10 mg PO DAILY 09/12/18 02/09/21 budesonide-formoterol HFA 160 2 puff inhalation BID 09/12/18 02/09/21 mcg-4.5 mcg/actuation aerosol inhaler (Symbicort) insulin aspart U-100 100 unit/mL 25 unit SUBCUT BID 09/12/18 02/09/21 (3 mL) subcutaneous pen (Novolog FlexPen U-100 Insulin aspart) insulin glargine 100 unit/mL (3 45 unit SUBCUT BID 09/12/18 02/09/21 mL) subcutaneous pen (Basaglar KwikPen U-100 Insulin) lamotrigine 150 mg tablet 150 mg PO DAILY 09/12/18 02/09/21 loratadine 10 mg tablet 10 mg PO DAILY 09/12/18 02/09/21 losartan 100 mg tablet 100 mg PO DAILY 09/12/18 02/09/21 allopurinol 300 mg tablet 300 mg PO BID 12/04/18 02/09/21 aspirin 81 mg chewable tablet 81 mg PO DAILY 12/04/18 02/09/21 pantoprazole 40 mg tablet,delayed 40 mg PO DAILY 12/04/18 02/09/21 release clonazepam 1 mg tablet mg PO 12/10/19 02/09/21 terazosin 10 mg capsule mg PO 12/10/19 02/09/21 benztropine 1 mg tablet 1 mg PO DAILY 02/09/21 02/09/21 chlorthalidone 50 mg tablet 50 mg PO DAILY 09/23/21 clopidogrel 75 mg tablet 75 mg PO DAILY 09/23/21 diclofenac sodium 1 % topical gel topical 09/23/21 doxazosin 2 mg tablet 2 mg PO DAILY 09/23/21 furosemide 20 mg tablet 20 mg PO DAILY 09/23/21 isosorbide mononitrate 30 mg mg PO 09/23/21 tablet,extended release 24 hr spironolactone 25 mg tablet 25 mg PO DAILY 09/23/21 citalopram 10 mg tablet 10 mg PO BEDTIME 01/25/22 ipratropium 20 mcg-albuterol 100 2 puff inhalation ONCE 01/25/22 mcg/actuation mist for inhalation (Combivent Respimat) metformin 1,000 mg tablet 1,000 mg PO BID 01/25/22 potassium chloride 10 mEq 10 meq PO DAILY 01/25/22 tablet,extended release(part/cryst) rosuvastatin 40 mg tablet 40 mg PO DAILY 01/25/22 Previous Rx's Medication Instructions Recorded carvedilol 25 mg tablet 50 mg (2 x 25 mg) PO BID #0 tabs 12/04/18 Allergies Allergy/AdvReac Type Severity Reaction Status Date / Time sulfamethoxazole Allergy Intermediate ITCHING Verified 01/25/22 14:16 [From BACTRIM] trimethoprim [From BACTRIM] Allergy Intermediate ITCHING Verified 01/25/22 14:16 Review of Systems Review of Systems ROS Unobtainable: All systems reviewed & are unremarkable except as noted in HPI and below Patient History Medical History (Updated 03/18/23 @ 00:30 by Jack Welsh MD) Schizophrenia PAF (paroxysmal atrial fibrillation) Degenerative joint disease of knee Inpatient management required Hyperlipidemia Hypertensive heart disease with chronic diastolic congestive heart failure Diabetes type 2, uncontrolled Chest pain Atrial fibrillation with rapid ventricular response Hyperlipidemia Former smoker Hypertensive heart disease with heart failure Diabetes type 2, controlled 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 Systemic hypertension Obstructive sleep apnea Chronic respiratory failure Grade III diastolic dysfunction Paroxysmal atrial fibrillation with rapid ventricular response Non-ST elevated myocardial infarction Surgical History H/O umbilical hernia repair (~1966) History of right hip replacement (~2014) Family History Father Knee pain, chronic Mother Patient denies significant medical history Social History household members: none Smoking Status: Former smoker alcohol intake: current Smoking Status: Former smoker alcohol intake frequency: 0-2 drinks per day Substance Use Type: does not use Exam Initial Vital Signs Initial Vital Signs: Vital Signs Pulse Rate 74 03/17/23 19:42 Pulse Oximetry 92 03/17/23 19:42 Oxygen Delivery Method Nasal Cannula 03/17/23 19:42 Oxygen Flow Rate 2 03/17/23 19:42 GENERAL: Alert morbidly obese 63-year-old male HEENT: Head atraumatic,EOMI, pupils reactive, face symmetric, moist mucous membranes CARDIOVASCULAR: Regular rate and rhythm without murmurs, rubs or gallops. RESPIRATORY: Decreased breath sounds bilaterally mild tachypnea able to speak ABDOMEN: Soft, nontender. Normoactive bowel sounds all 4 quadrants. No guarding or rebound. EXTREMITIES: Normal range of motion, no clubbing or edema. Neurovascularly intact NEUROLOGICAL: Alert and oriented x4.Normal gait and speech. SKIN: Warm, dry, no laceration, no petechiae, no rashes or lesions. Course Orders Ordered: ED Orders 03/17/23 20:30 Respiratory Panel (Film Array) Stat Acetaminophen (Acetaminophen 325 Mg Tablet) 650 mg PO Q6H PRN PRN Reason: Fever/Mild Pain (1-3) Last Admin: 03/18/23 02:10 Dose: 650 mg Documented By: AH Al Hydrox/Mg Hydrox/Simethicone (Mag Hydrox/Alum/Simeth 30 Ml Udc) 30 ml PO Q6HR PRN PRN Reason: Dyspepsia Amlodipine Besylate (Amlodipine 5 Mg Tablet) 10 mg PO DAILY [facility] Enoxaparin Sodium (Enoxaparin 30 Mg/0.3 Ml Syringe) 30 mg SUBCUT DAILY ANURAG Naloxone HCl (Naloxone 0.4 Mg/Ml Vial) 0.2 mg IV Q2MIN PRN PRN Reason: Opiate Reversal Ondansetron HCl (Ondansetron 4 Mg Odt) 4 mg PO Q8HR PRN PRN Reason: Nausea And Vomiting Discontinued Medications Albuterol (Albuterol 2.5 Mg/3 Ml Neb (Adult)) 5 mg INH NOW ONE Stop: 03/17/23 19:59 Last Admin: 03/17/23 20:03 Dose: 5 mg Documented By: ROHINI Albuterol/Ipratropium (Albuterol/Ipratropium 3 Ml Ampul) 3 ml INH NOW ONE Stop: 03/17/23 19:42 Last Admin: 03/17/23 19:51 Dose: 3 ml Documented By: ROHINI Furosemide 60 mg/ Sodium (Chloride) 56 mls @ 112 mls/hr IV NOW ONE Stop: 03/17/23 21:04 Last Infusion: 03/17/23 22:04 Dose: Infused Documented By: Admin: 03/17/23 21:19 Dose: 112 mls/hr Documented By: MILO Methylprednisolone (Methylprednisolone 125 Mg/2 Ml Vial) 125 mg IV NOW ONE Stop: 03/17/23 20:21 Last Admin: 03/17/23 20:43 Dose: 125 mg Documented By: MILO Vital Signs Vital signs: Vital Signs - 8 hr 03/17/23 21:29 03/17/23 21:30 03/17/23 21:30 Pulse Rate 67 Respiratory Rate 21 Blood Pressure 129/68 Pulse Oximetry 98 Oxygen Delivery Method BiPAP Fraction of Inspired Oxygen 21 03/17/23 21:31 03/17/23 21:45 03/17/23 22:00 Pulse Rate 69 72 Respiratory Rate 32 H 21 Blood Pressure Pulse Oximetry 97 95 Oxygen Delivery Method Fraction of Inspired Oxygen 21 03/17/23 22:01 03/17/23 22:01 03/17/23 22:15 Pulse Rate 71 68 Respiratory Rate 26 H 20 Blood Pressure 118/58 L Pulse Oximetry 95 97 Oxygen Delivery Method Fraction of Inspired Oxygen 03/17/23 22:30 03/17/23 22:30 03/17/23 22:45 Pulse Rate 69 68 Respiratory Rate 19 19 Blood Pressure 126/60 Pulse Oximetry 96 95 Oxygen Delivery Method Fraction of Inspired Oxygen 03/17/23 23:00 03/17/23 23:00 03/17/23 23:15 Pulse Rate 70 70 Respiratory Rate 17 21 Blood Pressure 131/61 Pulse Oximetry 98 98 Oxygen Delivery Method Fraction of Inspired Oxygen 03/17/23 23:23 03/17/23 23:30 03/17/23 23:30 Pulse Rate 70 Respiratory Rate 14 Blood Pressure 122/58 L Pulse Oximetry 98 Oxygen Delivery Method Fraction of Inspired Oxygen 21 03/17/23 23:45 03/18/23 00:00 03/18/23 00:00 Pulse Rate 71 71 Respiratory Rate 16 16 Blood Pressure 134/63 Pulse Oximetry 99 96 Oxygen Delivery Method Fraction of Inspired Oxygen MDM - SOB/Dyspnea Lab Data 03/17/23 19:49 03/17/23 19:49 Labs: Lab Results 03/17/23 03/17/23 03/17/23 Range/Units 19:49 19:58 20:30 WBC 7.9 (4.5-11.0) X10^3/uL RBC 3.64 L (4.5-5.9) X10^6/uL Hgb 9.6 L (13.5-17.5) g/dL Hct 29.6 L (41-53) % MCV 81.4 (80-100) fL MCH 26.3 (26-34) PG MCHC 32.3 (30-36) % RDW 15.6 H (11.6-14.8) % Plt Count 265 (150-400) X10^3/uL Neut % (Auto) 62.9 (50-75) % Lymph % (Auto) 22.0 L (25-40) % Benson % (Auto) 8.3 (3-14) % Eos % (Auto) 5.8 H (2-4) % Baso % (Auto) 1.0 (0-2) % Neut # (Auto) 5000 (5845-6249) /uL Lymph # (Auto) 1700 (9365-6552) /uL Benson # (Auto) 700 (0-900) /uL Eos # (Auto) 500 H (0-450) /uL Baso # (Auto) 100 (0-100) /uL D-Dimer 449 (<500) ng/ml Sodium 135 L (137-145) mmol/L Potassium 4.0 (3.4-5.1) mmol/L Chloride 101 (98-107) mmol/L Carbon Dioxide 25 (22-32) mmol/L BUN 29 H (9-20) mg/dL Creatinine 1.40 H (0.66-1.25) mg/dL Estimated GFR 56 L (>60) mL/min BUN/Creatinine Ratio 20.7 (6-22) Glucose 90 (80-110) mg/dL Calcium 8.8 (8.4-10.2) mg/dL Total Bilirubin 0.2 (0.2-1.3) mg/dL AST 17 (17-59) IU/L ALT 14 (<50) IU/L Alkaline Phosphatase 80 (38-126) U/L Total Creatine Kinase 210 H (55-170) U/L Troponin I 0.014 (0.01-0.034) ng/mL NT-Pro-B Natriuret Pep 586 H (<125) pg/mL Total Protein 6.6 (6.3-8.2) g/dL Albumin 3.8 (3.5-5.0) g/dL Globulin 2.8 (1.7-4.1) g/dL Albumin/Globulin Ratio 1.4 (1.0-2.8) Lipase 79 (23-300) U/L Procalcitonin 0.08 (<0.5) ng/mL Chlamy pneumoniae PCR Not detected (Not Detect) Adenovirus (PCR) Not detected (Not Detect) B.parapertussis DNA PCR Not detected (Not Detecte) Coronavirus OC43 (PCR) Not detected (Not Detect) Coronavirus HKU1 (PCR) Not detected (Not Detect) Coronavirus 229E (PCR) Not detected (Not Detect) SARS-CoV-2 (PCR) Negative Not detected (Negative) Coronavirus NL63 (PCR) Not detected (Not Detect) Human Metapneumovir PCR Not detected (Not Detect) Influenza A (H1) PCR Not detected (Not Detect) Influenza A (PCR) Not detected (Not Detect) Influenza A (H3) PCR Not detected (Not Detect) Influenza Type A (PCR) Not detected (Not Detect) Influenza Type B (PCR) Not detected (Not Detect) M. pneumoniae (PCR) Not detected (Not Detect) Parainfluenza 1 (PCR) Not detected (Not Detect) Parainfluenza 2 (PCR) Not detected (Not Detect) Parainfluenza 3 (PCR) Not detected (Not Detect) Parainfluenza 4 (PCR) Not detected (Not Detect) RSV (PCR) Not detected (Not Detect) Entero/Rhino (PCR) Not detected (Not Detect) Urine Dip Bedside Urine Glucose Negative Bedside Urine Bilirubin - Negative Bedside Urine Ketone - Negative Urine Specific [place] 1.015 Bedside Urine Occult Blood - Negative Bedside Urine pH 6.0 Bedside Urine Protein - Negative Bedside Urine Urobilinogen - Negative Bedside Urine Nitrite - Negative Bedside Urine Leukocytes - Negative Esterase Imaging Data Chest x-ray: Radiologist's Impression: PROCEDURE: XR CHEST 1V INDICATIONS: short of breath TECHNIQUE: One view of the chest was acquired. COMPARISON: [facility], , XR CHEST 1V, 02/19/2023, 14:51. [facility], , XR CHEST 1V, 09/11/2018, 9:59. FINDINGS: Surgical changes and devices: None. Lungs and pleura: Lungs are prominently edematous. No pleural effusions or pneumothorax. Mediastinum: Mediastinal contours appear normal. Heart size is globally enlarged. Bones and chest wall: No suspicious bony lesions. Overlying soft tissues appear unremarkable. IMPRESSION: Acute exacerbation of chronic CHF. Dictated by: Ulysses Friedman M.D. on 03/17/2023 at 20:19 ECG Data Interpretation: Sinus rhythm rate [address] some [address] changes V2 V3 MDM Narrative Medical decision making narrative: Patient 63-year-old male multiple comorbidities presenting today with increasing shortness of breath. He was given breathing treatments which did seem to help given Solu-Medrol. It helps a little. Chest x-ray shows acute exacerbation of chronic CHF. He is given 60 mg of Lasix apparently he was not 40 as outpatient. He continued to be extremely uncomfortable though not hypoxic mildly tachypneic he was put on BiPAP. After 30 minutes BiPAP he was not tolerating it wanting to stand up still did not feel very good. BiPAP was taken off O2 sats remained okay. He is able to speak in full sentences. Waiting for the 60 mg of Lasix work. He eventually put BiPAP back on. Discussed with him code status. He has no family or friends. Apparently no designated DPOA. Work of breathing significantly improved with BiPAP. He is given 60 of Lasix he has urinated 350mL. Respiratory panel negative. No evidence of infection. I think unlikely to be pulmonary embolism, he has COPD and CHF. X-ray shows congestive heart failure. BNP is 586. Probably combination CHF/COPD, treated for both. Discharge Plan Departure Patient Disposition: Admitted As Inpatient Clinical Impression: CHF (congestive heart failure), COPD (chronic obstructive pulmonary disease) Admit Date/Time: 03/18/23 00:12 Admit Provider: Jack Welsh
[2023-03-17 22:29] LABS: Adenovirus Not Detected (Not Detect)
[2023-03-17 22:30] LABS: B. parapertussis Not Detected (Not Detecte); Bordetella pertussis Not Detected (Not Detect); Chlamydophila pneumoniae Not Detected (Not Detect); Coronavirus 229E Not Detected (Not Detect); Coronavirus HKU1 Not Detected (Not Detect); Coronavirus NL 63 Not Detected (Not Detect); Coronavirus OC43 Not Detected (Not Detect); Human Metapneumovirus Not Detected (Not Detect); Human Rhinovirus/Enterovirus Not Detected (Not Detect); Influenza A Not Detected (Not Detect); Influenza A(No subj detected) Not Detected (Not Detect); Influenza B Not Detected (Not Detect); Mycoplasma pneumoniae Not Detected (Not Detect); Parainfluenza Virus 1 Not Detected (Not Detect); Parainfluenza Virus 2 Not Detected (Not Detect); Parainfluenza Virus 3 Not Detected (Not Detect); Parainfluenza Virus 4 Not Detected (Not Detect); Respiratory Syncytial Virus Not Detected (Not Detect); SARS- CoV-2 Not Detected (Not Detecte)
[2023-03-18] VITALS (91 sets, daily range): BP systolic 109–163; BP diastolic 53–91; PULSE 71–94; RESP 10–36; TEMP 31–36.9; O2SAT 21–100; BMI 44.5
--- NOTE | 2023-03-18 00:20 | DI.ECHO.S_ITS ---
[facility] +---------+ : : [address] : : : : [id number] : : : : Phone: [phone]+ Echocardiogram Report + + :Name: CHRISTINA CAMARENA Study Date: 03/18/2023 Height: 69 in : :[facility] ReadingLocation: Weight: 290 lb : : Gender: Male BSA: 2.4 m2 : :: 1960 Age: 63 yrs BP: 138/66 mmHg: :Reason For Study: Congestive Heart Failure : :Ordering Physician: SAMIR, : :MIGUEL ÁNGEL Performed By: Monie Lea : :Referring: MIGUEL ÁNGEL DAWSON : + + Interpretation Summary The left ventricle is normal in size. The left ventricle is hyperdynamic. The ejection fraction is estimated to be 75-80%. Suspect at least mild LV outflow tract obstruction. Diastolic parameters suggest a pseudonormalization pattern, consistent with probable elevated filling pressures. The right ventricle is moderately dilated. The right ventricular systolic function is normal. Both atria are severely dilated. There is a restriction of posterior mitral leaflet however anterior mitral leaflet is freely moving. Moderate posterior mitral annulus calcification. No significant mitral stenosis. Mild mitral stenosis. There is mild to moderate tricuspid regurgitation. The right ventricular systolic pressure is estimated to be at least 50 mmHg based on an estimated right atrial pressure of 8 mm Hg. There is moderate pulmonary hypertension. Procedure: A two-dimensional transthoracic echocardiogram with color flow and Doppler was performed. The study quality was technically adequate. The patient had an echocardiogram, but there is no comparison study available. The patient was in normal sinus rhythm during the exam. Left Ventricle: The left ventricle is normal in size. There is mild concentric left ventricular hypertrophy. There is moderate proximal septal thickening noted. There is no thrombus. The left ventricle is hyperdynamic. The ejection fraction is estimated to be 75-80%. There are no focal wall motion abnormalities. Diastolic parameters suggest a pseudonormalization pattern, consistent with probable elevated filling pressures. Right Ventricle: The right ventricle is moderately dilated. The right ventricular systolic function is normal. Atria: The left atrium is severely dilated. Both atria are severely dilated. The right atrium is severely dilated. There is no Doppler evidence for an interatrial shunt. Mitral Valve: The mitral valve leaflets are mildly calcified. There is moderate mitral annular calcification. There is mild mitral stenosis. The mitral valve mean gradient is 5 mmHg. There is a restriction of posterior mitral leaflet however anterior mitral leaflet is freely moving. Moderate posterior mitral annulus calcification. No significant mitral stenosis. Mild mitral stenosis. There is trace mitral regurgitation. Aortic Valve: The aortic valve is grossly normal. The aortic valve is trileaflet. The aortic valve opens well. There is no aortic valve stenosis. No aortic regurgitation is present. Tricuspid Valve: The tricuspid valve is not well visualized, but is grossly normal. There is no tricuspid stenosis. There is mild to moderate tricuspid regurgitation. The right ventricular systolic pressure is estimated to be at least 50 mmHg based on an estimated right atrial pressure of 8 mm Hg. There is moderate pulmonary hypertension. Pulmonic Valve: The pulmonic valve is not well visualized. There is no pulmonic valvular stenosis. There is trace pulmonic regurgitation. Great Vessels: The aortic root is normal size. The ascending aorta is normal in size. The pulmonary artery is normal size. The IVC is dilated (diameter is greater than 2.1 cm) yet it collapses greater than 50% with a sniff. This suggests a right atrial pressure of 8 mm Hg. Pericardium/ Pleura There is no pericardial effusion. There is no pleural effusion. MMode/2D Measurements & Calculations LVIDd: 4.7 cm LVOT diam: 2.0 cm LVIDs: 3.5 cm Ao root diam: 2.9 cm FS: 25.5 % asc Aorta Diam: 3.4 cm IVSd: 1.7 cm LVPWd: 1.5 cm LV prado. diameter/BSA (cm/m^2): 1.9 LV sys. diameter/BSA (cm/m^2): 1.4 LA A2 area: 28.2 cm2 RA area: 32.5 cm2 LA A4 area: 30.2 cm2 LA length (vol): 7.0 cm LA vol: 102.7 ml LA vol index: 42.4 ml/m2 RVD1 (basal): 5.8 cm TAPSE_phl: 2.9 cm Doppler Measurements & Calculations Ao V2 max: 205.0 cm/sec LVOT Max Dejuan: 156.0 cm/sec Ao V2 mean: 139.0 cm/sec LV V1 max P.7 mmHg Ao max P.0 mmHg LV V1 VTI: 27.2 cm Ao mean P.3 mmHg MILAN(I,D): 2.3 cm2 Ao V2 VTI: 37.4 cm MILAN(V,D): 2.4 cm2 sev ratio: 0.73 MILAN indexed to BSA (cm^2/m^2): 0.94 MV E max dejuan: 139.0 cm/sec TR max dejuan: 324.6 cm/sec MV A max dejuan: 92.2 cm/sec TR max P.1 mmHg MV E/A: 1.5 PA V2 max: 151.0 cm/sec Med Peak E' Dejuan: 4.8 cm/sec PA V2 mean: 99.8 cm/sec E/E' med: 28.7 PA mean P.0 mmHg Lat Peak E' Dejuan: 8.5 cm/sec PA pr(Accel): 39.8 mmHg E/E' lat: 16.3 E/e' average: 22.5 MV dec time: 0.18 sec MVA(VTI): 2.1 cm2 MV V2 mean: 106.0 cm/sec SV(LVOT): 85.3 ml MV mean P.2 mmHg MV V2 VTI: 40.0 cm AV VR_phl: 0.76 MILAN(VTI)/BSA_phl: 0.94 Reading Physician:01:[id number] PM
--- NOTE | 2023-03-18 00:26 | PM.HP.1 ---
History of Present Illness History of Present Illness Date Patient Seen: 03/18/23 Chief complaint: SOB/weak Narrative: 63 y/o with PMH of CHF, maintained on Lasix and recently having dose increased to 40 mg bid, presented to ED with worsening shortness of breath, wheezing. In the ED treated with lasix iv and solumedrol for chf exacerbation and COPD exacerbation. He has ERNESTINE and is intolerant of CPAP. Using oxygen at night instead, at 2 liters. On admission he needed 4-5 liters for worsening hypoxemia and was eventually placed on BiPAP. [facility] Medical History (Updated 03/18/23 @ 00:30 by Jack Welsh MD) Schizophrenia PAF (paroxysmal atrial fibrillation) Degenerative joint disease of knee Inpatient management required Hyperlipidemia Hypertensive heart disease with chronic diastolic congestive heart failure Diabetes type 2, uncontrolled Chest pain Atrial fibrillation with rapid ventricular response Hyperlipidemia Former smoker Hypertensive heart disease with heart failure Diabetes type 2, controlled 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 Systemic hypertension Obstructive sleep apnea Chronic respiratory failure Grade III diastolic dysfunction Paroxysmal atrial fibrillation with rapid ventricular response Non-ST elevated myocardial infarction Surgical History H/O umbilical hernia repair (~1966) History of right hip replacement (~2014) Family History Father Knee pain, chronic Mother Patient denies significant medical history Social History household members: none Smoking Status: Former smoker alcohol intake: current Meds Home Medications and Allergies Home Medications Medication Instructions Recorded Confirmed Type montelukast 10 mg tablet 10 mg PO DAILY 09/11/18 03/18/23 History nitroglycerin 0.4 mg sublingual See Rx Instructions .Route .COMPLEX 09/11/18 03/18/23 History tablet trazodone 150 mg tablet 150 mg PO BEDTIME 09/11/18 03/18/23 History amlodipine 5 mg tablet 10 mg PO DAILY 09/12/18 03/18/23 History budesonide-formoterol HFA 160 2 puff inhalation BID PRN 09/12/18 03/18/23 History mcg-4.5 mcg/actuation aerosol Shortness Of Breath Or Wheezing inhaler (Symbicort) lamotrigine 150 mg tablet 150 mg PO BEDTIME PTSD 09/12/18 03/18/23 History loratadine 10 mg tablet 10 mg PO DAILY 09/12/18 03/18/23 History allopurinol 300 mg tablet 300 mg PO BID 12/04/18 03/18/23 History aspirin 81 mg chewable tablet 81 mg PO DAILY 12/04/18 03/18/23 History carvedilol 25 mg tablet 50 mg (2 x 25 mg) PO BID #0 tabs 12/04/18 03/18/23 Rx pantoprazole 40 mg tablet,delayed 40 mg PO DAILY 12/04/18 03/18/23 History release benztropine 1 mg tablet 1 mg PO DAILY 02/09/21 03/18/23 History chlorthalidone 50 mg tablet 50 mg PO DAILY 09/23/21 03/18/23 History clopidogrel 75 mg tablet 75 mg PO DAILY 09/23/21 03/18/23 History diclofenac sodium 1 % topical gel 1 ea topical PRN PRN Pain 09/23/21 03/18/23 History doxazosin 2 mg tablet 2 mg PO BEDTIME 09/23/21 03/18/23 History furosemide 20 mg tablet 40 mg PO DAILY 09/23/21 03/18/23 History citalopram 10 mg tablet 10 mg PO BEDTIME 01/25/22 03/18/23 History ipratropium 20 mcg-albuterol 100 2 puff inhalation PRN PRN 01/25/22 03/18/23 History mcg/actuation mist for inhalation Shortness Of Breath Or Wheezing (Combivent Respimat) metformin 1,000 mg tablet 1,000 mg PO BID 01/25/22 03/18/23 History potassium chloride 10 mEq 10 meq PO BID 01/25/22 03/18/23 History tablet,extended release(part/cryst) rosuvastatin 40 mg tablet 40 mg PO DAILY 01/25/22 03/18/23 History benzonatate 200 mg capsule 200 mg PO 3XD PRN cough 03/18/23 03/18/23 History gabapentin 300 mg capsule 900 mg PO ONCE PM pain 03/18/23 03/18/23 History hydralazine 100 mg tablet 100 mg PO Q8H 03/18/23 03/18/23 History insulin glargine 100 unit/mL (3 60 unit SUBCUT BID 03/18/23 03/18/23 History mL) subcutaneous pen (Lantus Solostar U-100 Insulin) insulin lispro 100 unit/mL 25 unit SUBCUT BID 03/18/23 03/18/23 History subcutaneous pen ipratropium bromide 17 2 puff inhalation Q6H PRN 03/18/23 03/18/23 History mcg/actuation HFA aerosol inhaler Shortness Of Breath Or Wheezing (Atrovent HFA) isosorbide mononitrate 60 mg 60 mg PO QAM 03/18/23 03/18/23 History tablet,extended release 24 hr quetiapine 300 mg tablet 300 mg PO ONCE PM 03/18/23 03/18/23 History Allergies Allergy/AdvReac Type Severity Reaction Status Date / Time sulfamethoxazole Allergy Intermediate ITCHING Verified 01/25/22 14:16 [From BACTRIM] trimethoprim [From BACTRIM] Allergy Intermediate ITCHING Verified 01/25/22 14:16 Review of Systems Constitutional Comments: w/o fever or chills Cardiovascular Comments: w/o palpitations or chest pain Respiratory Comments: short of breath, wheezy Gastrointestinal Comments: w/o complaints Genitourinary Comments: w/o complaints Exam Vital Signs (past 8 hours): - 03/17/23 19:42 03/17/23 19:44 03/17/23 19:44 Temperature Pulse Rate 74 74 Respiratory Rate Blood Pressure 109/50 L Pulse Oximetry 92 93 Oxygen Delivery Method Nasal Cannula Oxygen Flow Rate 2 Fraction of Inspired Oxygen 03/17/23 19:45 03/17/23 19:51 03/17/23 19:52 Temperature 98.2 F Pulse Rate 73 70 75 Respiratory Rate 18 28 H Blood Pressure 109/50 L Pulse Oximetry 92 96 96 Oxygen Delivery Method Nasal Cannula Nasal Cannula Oxygen Flow Rate 2 4 Fraction of Inspired Oxygen 03/17/23 20:00 03/17/23 20:06 03/17/23 20:15 Temperature Pulse Rate 71 71 Respiratory Rate 16 15 Blood Pressure Pulse Oximetry 94 97 96 Oxygen Delivery Method Nasal Cannula Oxygen Flow Rate 1 Fraction of Inspired Oxygen 03/17/23 20:21 03/17/23 20:21 03/17/23 20:30 Temperature Pulse Rate 70 Respiratory Rate 14 Blood Pressure 104/54 L 101/51 L Pulse Oximetry 96 Oxygen Delivery Method Oxygen Flow Rate Fraction of Inspired Oxygen 03/17/23 20:30 03/17/23 20:45 03/17/23 21:00 Temperature Pulse Rate 73 70 71 Respiratory Rate 16 15 19 Blood Pressure Pulse Oximetry 96 96 94 Oxygen Delivery Method Room Air Oxygen Flow Rate Fraction of Inspired Oxygen 03/17/23 21:03 03/17/23 21:03 03/17/23 21:15 Temperature Pulse Rate 69 69 Respiratory Rate 18 15 Blood Pressure 120/56 L Pulse Oximetry 96 94 Oxygen Delivery Method Nasal Cannula Oxygen Flow Rate 2 Fraction of Inspired Oxygen 03/17/23 21:29 03/17/23 21:30 03/17/23 21:30 Temperature Pulse Rate 67 Respiratory Rate 21 Blood Pressure 129/68 Pulse Oximetry 98 Oxygen Delivery Method BiPAP Oxygen Flow Rate Fraction of Inspired Oxygen 21 03/17/23 21:31 03/17/23 21:45 03/17/23 22:00 Temperature Pulse Rate 69 72 Respiratory Rate 32 H 21 Blood Pressure Pulse Oximetry 97 95 Oxygen Delivery Method Oxygen Flow Rate Fraction of Inspired Oxygen 21 03/17/23 22:01 03/17/23 22:01 03/17/23 22:15 Temperature Pulse Rate 71 68 Respiratory Rate 26 H 20 Blood Pressure 118/58 L Pulse Oximetry 95 97 Oxygen Delivery Method Oxygen Flow Rate Fraction of Inspired Oxygen 03/17/23 22:30 03/17/23 22:30 03/17/23 22:45 Temperature Pulse Rate 69 68 Respiratory Rate 19 19 Blood Pressure 126/60 Pulse Oximetry 96 95 Oxygen Delivery Method Oxygen Flow Rate Fraction of Inspired Oxygen 03/17/23 23:00 03/17/23 23:00 03/17/23 23:15 Temperature Pulse Rate 70 70 Respiratory Rate 17 21 Blood Pressure 131/61 Pulse Oximetry 98 98 Oxygen Delivery Method Oxygen Flow Rate Fraction of Inspired Oxygen 03/17/23 23:23 03/17/23 23:30 03/17/23 23:30 Temperature Pulse Rate 70 Respiratory Rate 14 Blood Pressure 122/58 L Pulse Oximetry 98 Oxygen Delivery Method Oxygen Flow Rate Fraction of Inspired Oxygen 21 Fraction of Inspired Oxygen 21 Oxygen Delivery Method BiPAP Oxygen Flow Rate 2 Const Other: Sitting in bed with BiPAP on Eyes Other: eomi Neck Other: supple, thick, short Resp Other: decreased breath sounds to bases, + wheezing Cardio Other: RRR GI Other: obese, not distended abdomen Skin Other: no rashes Neuro Other: w/o deficits Psych Other: not delusional, mild anxiety Objective ECG Impression: NSR, w/o ischemic changes Labs 03/18/23 06:31 03/18/23 06:31 Labs: Laboratory Results - last 24 hr 03/17/23 03/17/23 03/17/23 19:49 19:58 20:30 WBC 7.9 RBC 3.64 L Hgb 9.6 L Hct 29.6 L MCV 81.4 MCH 26.3 MCHC 32.3 RDW 15.6 H Plt Count 265 Neut % (Auto) 62.9 Lymph % (Auto) 22.0 L [place] % (Auto) 8.3 Eos % (Auto) 5.8 H Baso % (Auto) 1.0 Neut # (Auto) 5000 Lymph # (Auto) 1700 [place] # (Auto) 700 Eos # (Auto) 500 H Baso # (Auto) 100 D-Dimer 449 Sodium 135 L Potassium 4.0 Chloride 101 Carbon Dioxide 25 BUN 29 H Creatinine 1.40 H Estimated GFR 56 L BUN/Creatinine Ratio 20.7 Glucose 90 Calcium 8.8 Total Bilirubin 0.2 AST 17 ALT 14 Alkaline Phosphatase 80 Total Creatine Kinase 210 H Troponin I 0.014 NT-Pro-B Natriuret Pep 586 H Total Protein 6.6 Albumin 3.8 Globulin 2.8 Albumin/Globulin Ratio 1.4 Lipase 79 Procalcitonin 0.08 Chlamy pneumoniae PCR Not detected Adenovirus (PCR) Not detected B.parapertussis DNA PCR Not detected Coronavirus OC43 (PCR) Not detected Coronavirus HKU1 (PCR) Not detected Coronavirus 229E (PCR) Not detected SARS-CoV-2 (PCR) Negative Not detected Coronavirus NL63 (PCR) Not detected Human Metapneumovir PCR Not detected Influenza A (H1) PCR Not detected Influenza A (PCR) Not detected Influenza A (H3) PCR Not detected Influenza Type A (PCR) Not detected Influenza Type B (PCR) Not detected M. pneumoniae (PCR) Not detected Parainfluenza 1 (PCR) Not detected Parainfluenza 2 (PCR) Not detected Parainfluenza 3 (PCR) Not detected Parainfluenza 4 (PCR) Not detected RSV (PCR) Not detected Entero/Rhino (PCR) Not detected Assessment & Plan Assessment and plan (1) Acute on chronic diastolic (congestive) heart failure: Status: Acute Plan: inpatient admission on telemetry for worsening hypoxemia due to congestion / CHF - needs monitored diuresis and BiPAP - home medications list Lasix and Chlorthalidone - he reported on Lasix only that was apparently increased from daily to bid - contue with (2) COPD (chronic obstructive pulmonary disease): Status: Acute (3) Morbid obesity with BMI of 40.0-44.9, adult: Status: Chronic Plan: BMI 42, has ERNESTINE but does not tolerate CPAP (4) Obstructive sleep apnea on CPAP: Status: Chronic Plan: see above (5) Diabetes type 2, uncontrolled: Problem details: Present on admission Patient's oral anti-diabetics have been held. He is placed on basal and mealtime bolus insulin. Qualifiers: Coma presence: without coma Glycemic state: with hypoglycemia Qualified Code(s): E11.649 - Type 2 diabetes mellitus with hypoglycemia without coma Status: Chronic Plan: CCD, insulin - long / short acting, metformin (6) PAF (paroxysmal atrial fibrillation): Status: Acute Plan: In sinus. BB. (7) Schizophrenia: Status: Acute Plan: Stable on home regimen of Cogentin, Seroquel, Trazodone, Lamictal.
[2023-03-18] MEDS: ACETAMINOPHEN 325 MG TABLET 650 MG PO (02:10)
--- NOTE | 2023-03-18 02:52 | PC.NURSE ---
rec'd pt from ED awake and alert; on Bipap 15/8; r-10; fio2-21; pt tolerating bipap; pt reports chest pain and tightness; relaxed w/ no obvious distress; admission assessment done and spoke w/ Dr. Welsh via monitor; pt given Tylenol 650mg po for pain
[2023-03-18 06:42] LABS: Add Manual Diff / Slide Review NO; Basophils Absolute Auto 0 /uL (0-100); Basophils Percent Auto 0.3 % (0-2); Eosinophils Absolute Auto 0 /uL (0-450); Eosinophils Percent Auto 0.2 % (2-4); Hematocrit 32.3 % (41-53); Hemoglobin 10.3 g/dL (13.5-17.5); Lymphocytes Absolute Auto 500 /uL (1100-4500); Lymphocytes Percent Auto 6.7 % (25-40); Mean Corpuscular HGB Conc 31.8 % (30-36); Mean Corpuscular Hemoglobin 25.7 PG (26-34); Mean Corpuscular Volume 80.7 fL (80-100); Monocytes Absolute Auto 0 /uL (0-900); Monocytes Percent Auto 0.6 % (3-14); Neutrophils Absolute Auto 6600 /uL (1500-7000); Neutrophils Percent Auto 92.2 % (50-75); Platelet Count 280 X10^3/uL (150-400); Red Cell Distribution Width 15.2 % (11.6-14.8); White Blood Cell Count 7.2 X10^3/uL (4.5-11.0)
[2023-03-18 06:48] LABS: BUN Creatinine Ratio 24.8 (6-22); Blood Urea Nitrogen 38 mg/dL (9-20); Calcium 8.7 mg/dL (8.4-10.2); Carbon Dioxide 25 mmol/L (22-32); Chloride 98 mmol/L (98-107); Estimated Glomerular Filt Rate 51 mL/min (>60); Glucose 228 mg/dL (80-110); HEMOLYSIS < 15 (0-50); Potassium 4.6 mmol/L (3.4-5.1); Sodium 133 mmol/L (137-145)
--- NOTE | 2023-03-18 06:53 | PC.NURSE ---
bipap was removed for pt to have a snack; placed on 1.5l/nc; tolerating well; no complaints of chest pain at this time; med rec completed
[2023-03-18 06:57] LABS: NT-proBNP (BNP-Adult 18+) 597 pg/mL (<125)
[2023-03-18 07:33] LABS: MRSA (Nasal) PCR Not Detected (Not Detect)
[2023-03-18] MEDS: HYDRALAZINE 25 MG TABLET 100 MG PO ×3 (08:28→20:51)
[2023-03-18] MEDS: FUROSEMIDE 40 MG TABLET PO (08:28)
[2023-03-18] MEDS: ENOXAPARIN 40 MG/0.4 ML SYRINGE SUBCUT (08:51)
[2023-03-18] MEDS: carvediloL 12.5 MG TABLET 50 MG PO ×2 (08:52→20:46)
[2023-03-18] MEDS: ATORVASTATIN 20 MG TABLET 80 MG PO (08:52)
[2023-03-18] MEDS: allopurinoL 100 MG TABLET 300 MG PO ×2 (08:52→20:45)
[2023-03-18] MEDS: ISOSORBIDE MONONITRATE ER 30 MG TABLET 60 MG PO (08:53)
[2023-03-18] MEDS: predniSONE 20 MG TABLET 40 MG PO (08:53)
[2023-03-18] MEDS: BENZTROPINE 1 MG TABLET PO (08:53)
[2023-03-18] MEDS: ASPIRIN 81 MG CHEW TAB PO (08:53)
[2023-03-18] MEDS: AMLODIPINE 5 MG TABLET 10 MG PO (08:54)
[2023-03-18] MEDS: LORATADINE 10 MG TABLET PO (08:54)
[2023-03-18] MEDS: PANTOPRAZOLE DR 40 MG TABLET PO (08:54)
[2023-03-18] MEDS: METFORMIN HCL 500 MG TABLET 1000 MG PO ×2 (08:54→20:50)
[2023-03-18] MEDS: CLOPIDOGREL 75 MG TABLET PO (08:54)
[2023-03-18] MEDS: MONTELUKAST 10 MG TABLET PO (08:55)
[2023-03-18] MEDS: POTASSIUM CHLORIDE 10 MEQ TAB PO ×2 (08:55→20:50)
[2023-03-18] MEDS: FUROSEMIDE 40 MG/4 ML VIAL IV (10:33)
[2023-03-18] MEDS: INSULIN GLARGINE 100 UNIT/ML 3ML PEN 30 UNIT SUBCUT ×2 (10:59→20:43)
[2023-03-18] MEDS: INSULIN LISPRO 100 UNIT/ML 3ML VIAL SUBCUT ×3 (11:48→20:44)
--- NOTE | 2023-03-18 12:01 | CM.DANOTE ---
DCP Assessment Note: Patient is a 63yo M here following COPD and [facility]F exacerb[facility] [employer] reviewed EMR. Per H&P, patient uses 2ltrs of O2 at home. VEHICLE [employer]PR[employer]ER entered room and introduced self and role. Patient sitting up in chair. Lives alone [place] first floor in [place] apartment. Indep with most ADLs, does not drive. Friend and emergency contact Abby ([phone]) provide transport for him as needed and bring him groceries. [facility] from [facility]. Patient has a walker/two canes/grab bars/a shower seat, uses as needed. Patient was told by the overnight hospitalist that he will be here for two days. Patient will likely need Medicaid transport home. Patient denies other resources at this time. Plan: likely home when medically stable. Likely will need Medicaid transport home. CM team will continue to follow as needed, [facility] [place] Discharge Planning/Care Management CM Discharge Assessment Start: 03/18/23 11:58 Freq: Status: Active Protocol: Document 03/18/23 11:59 (Rec: 03/18/23 12:00 [id number]) Discharge Planning Assessment Assigned Rehab Aid DK Retana DPOA/Assigned Designee Name Abby Perera (emergency contact, friend) Contact Information [phone] Advance Directives? No History Provided By Patient,Medical Record Prior Living Arrangements Apartment/Condo Comment 1st floor--no stairs Household Members none Type of transporation used prior to Relies on Others admit Comment [facility] in [place] or his friend Abby drive for him or bring him his needs. Likely Medicaid transport home. Independent with ADL's Yes Is patient alert and oriented? Yes Needs Assistance With Home Chores / Shopping DME Already Rented / Owned Bath Bench,FWW / Walker,Cane, Oxygen Discharge Plan Home Transportation Arrangement Likely medicaid transport Whiteboard Updated in Patient Room with Yes name and ext. # of Rehab Aid Review Status In Process Next Review Type Continued Stay Review
[2023-03-18] MEDS: ALBUTEROL/IPRATROPIUM 3 ML AMPUL INH ×2 (12:58→19:44)
--- NOTE | 2023-03-18 14:53 | P.HP_ITS ---
History of Present Illness History of Present Illness Date Patient Seen: 03/18/23 Chief complaint: SOB/weak Narrative: 63 y/o with PMH of CHF, maintained on Lasix and recently having dose increased to 40 mg bid, presented to ED with worsening shortness of breath, wheezing. In the ED treated with lasix iv and solumedrol for chf exacerbation and COPD exacerbation. He has ERNESTINE and is intolerant of CPAP. Using oxygen at night instead, at 2 liters. On admission he needed 4-5 liters for worsening hypoxemia and was eventually placed on BiPAP. [facility] Medical History (Updated 03/18/23 @ 00:30 by Jack Welsh MD) Schizophrenia PAF (paroxysmal atrial fibrillation) Degenerative joint disease of knee Inpatient management required Hyperlipidemia Hypertensive heart disease with chronic diastolic congestive heart failure Diabetes type 2, uncontrolled Chest pain Atrial fibrillation with rapid ventricular response Hyperlipidemia Former smoker Hypertensive heart disease with heart failure Diabetes type 2, controlled 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 Systemic hypertension Obstructive sleep apnea Chronic respiratory failure Grade III diastolic dysfunction Paroxysmal atrial fibrillation with rapid ventricular response Non-ST elevated myocardial infarction Surgical History H/O umbilical hernia repair (~1966) History of right hip replacement (~2014) Family History Father Knee pain, chronic Mother Patient denies significant medical history Social History household members: none Smoking Status: Former smoker alcohol intake: current Meds Home Medications and Allergies Home Medications Medication Instructions Recorded Confirmed Type montelukast 10 mg tablet 10 mg PO DAILY 09/11/18 03/18/23 History nitroglycerin 0.4 mg sublingual See Rx Instructions .Route .COMPLEX 09/11/18 03/18/23 History tablet amlodipine 5 mg tablet 10 mg PO DAILY 09/12/18 03/18/23 History budesonide-formoterol HFA 160 2 puff inhalation BID PRN 09/12/18 03/18/23 History mcg-4.5 mcg/actuation aerosol Shortness Of Breath Or Wheezing inhaler (Symbicort) lamotrigine 150 mg tablet 150 mg PO BEDTIME PTSD 09/12/18 03/18/23 History loratadine 10 mg tablet 10 mg PO DAILY 09/12/18 03/18/23 History allopurinol 300 mg tablet 300 mg PO BID 12/04/18 03/18/23 History aspirin 81 mg chewable tablet 81 mg PO DAILY 12/04/18 03/18/23 History carvedilol 25 mg tablet 50 mg (2 x 25 mg) PO BID #0 tabs 12/04/18 03/18/23 Rx pantoprazole 40 mg tablet,delayed 40 mg PO DAILY 12/04/18 03/18/23 History release benztropine 1 mg tablet 1 mg PO DAILY 02/09/21 03/18/23 History chlorthalidone 50 mg tablet 50 mg PO DAILY 09/23/21 03/18/23 History clopidogrel 75 mg tablet 75 mg PO DAILY 09/23/21 03/18/23 History diclofenac sodium 1 % topical gel 1 ea topical PRN PRN Pain 09/23/21 03/18/23 History doxazosin 2 mg tablet 2 mg PO BEDTIME 09/23/21 03/18/23 History furosemide 20 mg tablet 40 mg PO DAILY 09/23/21 03/18/23 History ipratropium 20 mcg-albuterol 100 2 puff inhalation PRN PRN 01/25/22 03/18/23 History mcg/actuation mist for inhalation Shortness Of Breath Or Wheezing (Combivent Respimat) metformin 1,000 mg tablet 1,000 mg PO BID 01/25/22 03/18/23 History potassium chloride 10 mEq 10 meq PO BID 01/25/22 03/18/23 History tablet,extended release(part/cryst) rosuvastatin 40 mg tablet 40 mg PO DAILY 01/25/22 03/18/23 History benzonatate 200 mg capsule 200 mg PO 3XD PRN cough 03/18/23 03/18/23 History gabapentin 300 mg capsule 900 mg PO ONCE PM pain 03/18/23 03/18/23 History hydralazine 100 mg tablet 100 mg PO Q8H 03/18/23 03/18/23 History insulin glargine 100 unit/mL (3 60 unit SUBCUT BID 03/18/23 03/18/23 History mL) subcutaneous pen (Lantus Solostar U-100 Insulin) insulin lispro 100 unit/mL 25 unit SUBCUT BID 03/18/23 03/18/23 History subcutaneous pen ipratropium bromide 17 2 puff inhalation Q6H PRN 03/18/23 03/18/23 History mcg/actuation HFA aerosol inhaler Shortness Of Breath Or Wheezing (Atrovent HFA) isosorbide mononitrate 60 mg 60 mg PO QAM 03/18/23 03/18/23 History tablet,extended release 24 hr Allergies Allergy/AdvReac Type Severity Reaction Status Date / Time sulfamethoxazole Allergy Intermediate ITCHING Verified 01/25/22 14:16 [From BACTRIM] trimethoprim [From BACTRIM] Allergy Intermediate ITCHING Verified 01/25/22 14:16 Review of Systems Constitutional Comments: w/o fever or chills Cardiovascular Comments: w/o palpitations or chest pain Respiratory Comments: short of breath, wheezy Gastrointestinal Comments: w/o complaints Genitourinary Comments: w/o complaints Exam Vital Signs (past 8 hours): - 03/18/23 07:00 03/18/23 07:00 03/18/23 07:00 Temperature Pulse Rate 86 Respiratory Rate 12 Blood Pressure 151/67 H Pulse Oximetry 97 Oxygen Delivery Method Nasal Cannula BiPAP Oxygen Flow Rate Fraction of Inspired Oxygen 03/18/23 07:15 03/18/23 07:30 03/18/23 07:45 Temperature 98.5 F Pulse Rate 86 85 85 Respiratory Rate 16 19 17 Blood Pressure Pulse Oximetry 96 98 97 Oxygen Delivery Method Oxygen Flow Rate Fraction of Inspired Oxygen 03/18/23 08:00 03/18/23 08:01 03/18/23 08:01 Temperature 98 F Pulse Rate 86 86 Respiratory Rate 16 20 Blood Pressure 140/62 Pulse Oximetry 97 97 Oxygen Delivery Method Oxygen Flow Rate Fraction of Inspired Oxygen 03/18/23 08:17 03/18/23 08:28 03/18/23 08:30 Temperature Pulse Rate 94 H 92 H 90 Respiratory Rate 25 H 26 H Blood Pressure 140/62 Pulse Oximetry 97 Oxygen Delivery Method Oxygen Flow Rate Fraction of Inspired Oxygen 03/18/23 08:45 03/18/23 08:52 03/18/23 09:00 Temperature Pulse Rate 87 90 87 Respiratory Rate 13 Blood Pressure 140/91 H 152/67 H Pulse Oximetry 97 Oxygen Delivery Method Oxygen Flow Rate Fraction of Inspired Oxygen 03/18/23 09:00 03/18/23 09:00 03/18/23 09:15 Temperature Pulse Rate 86 87 Respiratory Rate 30 H 21 Blood Pressure 152/67 H Pulse Oximetry 97 98 Oxygen Delivery Method Oxygen Flow Rate Fraction of Inspired Oxygen 03/18/23 09:30 03/18/23 09:45 03/18/23 10:00 Temperature Pulse Rate 87 90 Respiratory Rate 11 L 19 Blood Pressure 141/65 H Pulse Oximetry 97 97 Oxygen Delivery Method Oxygen Flow Rate Fraction of Inspired Oxygen 03/18/23 10:00 03/18/23 10:15 03/18/23 10:30 Temperature Pulse Rate 89 89 85 Respiratory Rate 11 L 16 27 H Blood Pressure Pulse Oximetry 98 98 98 Oxygen Delivery Method Oxygen Flow Rate Fraction of Inspired Oxygen 03/18/23 10:35 03/18/23 10:45 03/18/23 11:00 Temperature Pulse Rate 85 88 Respiratory Rate 35 H 24 Blood Pressure Pulse Oximetry 97 99 97 Oxygen Delivery Method Nasal Cannula Oxygen Flow Rate 2 Fraction of Inspired Oxygen 28 03/18/23 11:01 03/18/23 11:01 03/18/23 12:51 Temperature 97.9 F Pulse Rate 88 86 Respiratory Rate 36 H Blood Pressure 138/66 Pulse Oximetry 98 98 Oxygen Delivery Method Oxygen Flow Rate Fraction of Inspired Oxygen 03/18/23 12:58 03/18/23 13:00 03/18/23 13:05 Temperature Pulse Rate 85 86 Respiratory Rate 18 Blood Pressure 130/57 L Pulse Oximetry 98 98 Oxygen Delivery Method Nasal Cannula Oxygen Flow Rate 2 Fraction of Inspired Oxygen 28 03/18/23 13:05 03/18/23 13:15 03/18/23 13:30 Temperature Pulse Rate 85 87 86 Respiratory Rate Blood Pressure Pulse Oximetry 97 98 97 Oxygen Delivery Method Oxygen Flow Rate Fraction of Inspired Oxygen Fraction of Inspired Oxygen 28 SaO2/FiO2 Ratio 350 Oxygen Delivery Method Nasal Cannula Oxygen Flow Rate 2 Const Other: Sitting in bed with BiPAP on Eyes Other: eomi Neck Other: supple, thick, short Resp Other: decreased breath sounds to bases, + wheezing Cardio Other: RRR GI Other: obese, not distended abdomen Skin Other: no rashes Neuro Other: w/o deficits Psych Other: not delusional, mild anxiety Objective Labs 03/18/23 06:31 03/18/23 06:31 Labs: Laboratory Results - last 24 hr 10/07/23 10/07/23 10/07/23 19:49 19:58 20:30 WBC 7.9 RBC 3.64 L Hgb 9.6 L Hct 29.6 L MCV 81.4 MCH 26.3 MCHC 32.3 RDW 15.6 H Plt Count 265 Neut % (Auto) 62.9 Lymph % (Auto) 22.0 L [place] % (Auto) 8.3 Eos % (Auto) 5.8 H Baso % (Auto) 1.0 Neut # (Auto) 5000 Lymph # (Auto) 1700 [place] # (Auto) 700 Eos # (Auto) 500 H Baso # (Auto) 100 D-Dimer 449 Sodium 135 L Potassium 4.0 Chloride 101 Carbon Dioxide 25 BUN 29 H Creatinine 1.40 H Estimated GFR 56 L BUN/Creatinine Ratio 20.7 Glucose 90 Calcium 8.8 Total Bilirubin 0.2 AST 17 ALT 14 Alkaline Phosphatase 80 Total Creatine Kinase 210 H Troponin I 0.014 NT-Pro-B Natriuret Pep 586 H Total Protein 6.6 Albumin 3.8 Globulin 2.8 Albumin/Globulin Ratio 1.4 Lipase 79 Procalcitonin 0.08 Nasal Screen MRSA (PCR) Chlamy pneumoniae PCR Not detected Adenovirus (PCR) Not detected B.parapertussis DNA PCR Not detected Coronavirus OC43 (PCR) Not detected Coronavirus HKU1 (PCR) Not detected Coronavirus 229E (PCR) Not detected SARS-CoV-2 (PCR) Negative Not detected Coronavirus NL63 (PCR) Not detected Human Metapneumovir PCR Not detected Influenza A (H1) PCR Influenza A (PCR) Not detected Influenza A (H3) PCR Influenza Type A (PCR) Not detected Influenza Type B (PCR) Not detected M. pneumoniae (PCR) Not detected Parainfluenza 1 (PCR) Not detected Parainfluenza 2 (PCR) Not detected Parainfluenza 3 (PCR) Not detected Parainfluenza 4 (PCR) Not detected RSV (PCR) Not detected Entero/Rhino (PCR) Not detected 03/18/23 03/18/23 01:30 06:31 WBC 7.2 RBC 4.00 L Hgb 10.3 L Hct 32.3 L MCV 80.7 MCH 25.7 L MCHC 31.8 RDW 15.2 H Plt Count 280 Neut % (Auto) 92.2 H D Lymph % (Auto) 6.7 L [place] % (Auto) 0.6 L Eos % (Auto) 0.2 L Baso % (Auto) 0.3 Neut # (Auto) 6600 Lymph # (Auto) 500 L [place] # (Auto) 0 Eos # (Auto) 0 Baso # (Auto) 0 D-Dimer Sodium 133 L Potassium 4.6 Chloride 98 Carbon Dioxide 25 BUN 38 H Creatinine 1.53 H Estimated GFR 51 L BUN/Creatinine Ratio 24.8 H Glucose 228 H D Calcium 8.7 Total Bilirubin AST ALT Alkaline Phosphatase Total Creatine Kinase Troponin I NT-Pro-B Natriuret Pep 597 H Total Protein Albumin Globulin Albumin/Globulin Ratio Lipase Procalcitonin Nasal Screen MRSA (PCR) Not detected Chlamy pneumoniae PCR Adenovirus (PCR) B.parapertussis DNA PCR Coronavirus OC43 (PCR) Coronavirus HKU1 (PCR) Coronavirus 229E (PCR) SARS-CoV-2 (PCR) Coronavirus NL63 (PCR) Human Metapneumovir PCR Influenza A (H1) PCR Influenza A (PCR) Influenza A (H3) PCR Influenza Type A (PCR) Influenza Type B (PCR) M. pneumoniae (PCR) Parainfluenza 1 (PCR) Parainfluenza 2 (PCR) Parainfluenza 3 (PCR) Parainfluenza 4 (PCR) RSV (PCR) Entero/Rhino (PCR) Assessment & Plan Assessment and plan (1) Acute on chronic diastolic (congestive) heart failure: Status: Acute Plan: inpatient admission on telemetry for worsening hypoxemia due to congestion / CHF - needs monitored diuresis and BiPAP - home medications list Lasix and Chlorthalidone - he reported on Lasix only that was apparently increased from daily to bid - continue with IV lasix - echo with EF 75-80%, severely dilated atria, mild-mot TR, RVSP 50 with mod pulm HTN - continue duiresis (2) COPD (chronic obstructive pulmonary disease): Status: Acute Plan: -po prednisone ordered x5 days (3) Morbid obesity with BMI of 40.0-44.9, adult: Status: Chronic Plan: BMI 42, has ERNESTINE but does not tolerate CPAP (4) Obstructive sleep apnea on CPAP: Status: Chronic Plan: see above (5) Diabetes type 2, uncontrolled: Problem details: Present on admission Patient's oral anti-diabetics have been held. He is placed on basal and mealtime bolus insulin. Qualifiers: Glycemic state: with hypoglycemia Coma presence: without coma Qualified Code(s): E11.649 - Type 2 diabetes mellitus with hypoglycemia without coma Status: Chronic Plan: CCD, insulin - long / short acting, metformin (6) PAF (paroxysmal atrial fibrillation): Status: Acute Plan: In sinus. BB. (7) Schizophrenia: Status: Acute Plan: Stable on home regimen of Cogentin, Seroquel, Trazodone, Lamictal. Plan Dispo: Home in 2 days pending improvement in hypoxia. Quality VTE Deep Vein Thrombosis/Pulmonary Embolism Present on Admission: No
[2023-03-18] MEDS: BENZONATATE 100 MG CAPSULE 200 MG PO ×2 (15:38→20:45)
[2023-03-18] MEDS: BUDESONIDE 0.5 MG/2 ML NEB INH (19:44)
[2023-03-18] MEDS: DOXAZOSIN 2 MG TABLET PO (20:47)
[2023-03-18] MEDS: GABAPENTIN 300 MG CAPSULE 900 MG PO (20:48)
[2023-03-18] MEDS: lamoTRIgine 100 MG TABLET 150 MG PO (20:49)
[2023-03-18] MEDS: ONDANSETRON 4 MG ODT PO (20:52)
[2023-03-19] VITALS (37 sets, daily range): BP systolic 110–120; BP diastolic 55–71; PULSE 78–86; RESP 17–24; TEMP 36.7–37; O2SAT 93–98
[2023-03-19 05:23] LABS: Add Manual Diff / Slide Review NO; Basophils Absolute Auto 0 /uL (0-100); Basophils Percent Auto 0.1 % (0-2); Eosinophils Absolute Auto 0 /uL (0-450); Hematocrit 29.3 % (41-53); Hemoglobin 9.4 g/dL (13.5-17.5); Lymphocytes Absolute Auto 600 /uL (1100-4500); Lymphocytes Percent Auto 4.3 % (25-40); Mean Corpuscular HGB Conc 32.1 % (30-36); Mean Corpuscular Hemoglobin 25.9 PG (26-34); Mean Corpuscular Volume 80.8 fL (80-100); Monocytes Absolute Auto 800 /uL (0-900); Monocytes Percent Auto 5.6 % (3-14); Neutrophils Absolute Auto 12100 /uL (1500-7000); Platelet Count 274 X10^3/uL (150-400); Red Blood Cell Count 3.62 X10^6/uL (4.5-5.9); Red Cell Distribution Width 15.7 % (11.6-14.8); White Blood Cell Count 13.4 X10^3/uL (4.5-11.0)
[2023-03-19 05:26] LABS: Blood Urea Nitrogen 60 mg/dL (9-20); Calcium 8.5 mg/dL (8.4-10.2); Carbon Dioxide 26 mmol/L (22-32); Chloride 98 mmol/L (98-107); Estimated Glomerular Filt Rate 50 mL/min (>60); Glucose 281 mg/dL (80-110); HEMOLYSIS < 15 (0-50); Potassium 4.4 mmol/L (3.4-5.1); Sodium 133 mmol/L (137-145)
[2023-03-19] MEDS: HYDRALAZINE 25 MG TABLET 100 MG PO (06:00)
[2023-03-19] MEDS: ALBUTEROL/IPRATROPIUM 3 ML AMPUL INH ×2 (07:33→12:39)
[2023-03-19] MEDS: BUDESONIDE 0.5 MG/2 ML NEB INH (07:33)
[2023-03-19] MEDS: INSULIN GLARGINE 100 UNIT/ML 3ML PEN 30 UNIT SUBCUT (08:32)
[2023-03-19] MEDS: INSULIN LISPRO 100 UNIT/ML 3ML VIAL SUBCUT (08:32)
[2023-03-19] MEDS: FUROSEMIDE 40 MG/4 ML VIAL IV (08:33)
[2023-03-19] MEDS: SODIUM CHLORIDE 0.9% FLUSH 10 ML IV (08:34)
[2023-03-19] MEDS: ENOXAPARIN 40 MG/0.4 ML SYRINGE SUBCUT (08:35)
[2023-03-19] MEDS: allopurinoL 100 MG TABLET 300 MG PO (08:42)
[2023-03-19] MEDS: AMLODIPINE 5 MG TABLET 10 MG PO (08:43)
[2023-03-19] MEDS: ATORVASTATIN 20 MG TABLET 80 MG PO (08:43)
[2023-03-19] MEDS: BENZONATATE 100 MG CAPSULE 200 MG PO (08:43)
[2023-03-19] MEDS: ASPIRIN 81 MG CHEW TAB PO (08:43)
[2023-03-19] MEDS: CLOPIDOGREL 75 MG TABLET PO (08:44)
[2023-03-19] MEDS: BENZTROPINE 1 MG TABLET PO (08:44)
[2023-03-19] MEDS: ISOSORBIDE MONONITRATE ER 30 MG TABLET 60 MG PO (08:44)
[2023-03-19] MEDS: carvediloL 12.5 MG TABLET 50 MG PO (08:45)
[2023-03-19] MEDS: CHLORTHALIDONE 25 MG TABLET 50 MG PO (08:45)
[2023-03-19] MEDS: LORATADINE 10 MG TABLET PO (08:45)
[2023-03-19] MEDS: METFORMIN HCL 500 MG TABLET 1000 MG PO (08:45)
[2023-03-19] MEDS: MONTELUKAST 10 MG TABLET PO (08:46)
[2023-03-19] MEDS: POTASSIUM CHLORIDE 10 MEQ TAB PO (08:46)
[2023-03-19] MEDS: predniSONE 20 MG TABLET 40 MG PO (08:46)
[2023-03-19] MEDS: PANTOPRAZOLE DR 40 MG TABLET PO (08:46)
--- NOTE | 2023-03-19 11:26 | PM.DS.1 ---
History of Present Illness History of Present Illness Date Patient Seen: 03/18/23 Chief complaint: SOB/weak Narrative: 63 y/o with PMH of CHF, maintained on Lasix and recently having dose increased to 40 mg bid, presented to ED with worsening shortness of breath, wheezing. In the ED treated with lasix iv and solumedrol for chf exacerbation and COPD exacerbation. He has ERNESTINE and is intolerant of CPAP. Using oxygen at night instead, at 2 liters. On admission he needed 4-5 liters for worsening hypoxemia and was eventually placed on BiPAP. Discharge Providers Provider Date of admission: 03/18/23 00:12 Discharge Date: 03/19/23 Primary care physician: Stephanie Marrero MD Consults: 03/19/23 11:11 Consult to Home Health Routine Comment: Reason For Exam: Home health services upon discharge Discharge provider: Dylan Thomas DO Summary Hospital Course Discharge Diagnosis: (1) Acute on chronic diastolic (congestive) heart failure: Status: Acute Plan: inpatient admission on telemetry for worsening hypoxemia due to congestion / CHF - needs monitored diuresis and BiPAP - home medications list Lasix and Chlorthalidone - he reported on Lasix only that was apparently increased from daily to bid - continue with IV lasix - echo with EF 75-80%, severely dilated atria, mild-mot TR, RVSP 50 with mod pulm HTN - continue duiresis (2) COPD (chronic obstructive pulmonary disease): Status: Acute Plan: -po prednisone ordered x5 days (3) Morbid obesity with BMI of 40.0-44.9, adult: Status: Chronic Plan: BMI 42, has ERNESTINE but does not tolerate CPAP (4) Obstructive sleep apnea on CPAP: Status: Chronic Plan: see above (5) Diabetes type 2, uncontrolled: Problem details: Present on admission Patient's oral anti-diabetics have been held. He is placed on basal and mealtime bolus insulin. Qualifiers: Glycemic state: with hypoglycemia Coma presence: without coma Qualified Code(s): E11.649 - Type 2 diabetes mellitus with hypoglycemia without coma Status: Chronic Plan: CCD, insulin - long / short acting, metformin (6) PAF (paroxysmal atrial fibrillation): Status: Acute Plan: In sinus. BB. (7) Schizophrenia: Status: Acute Plan: Stable on home regimen of Cogentin, Seroquel, Trazodone, Lamictal. Hospital Course: Admitted for worsening dyspnea and found to have CHF exacerbation and COPD exacerbation. Given lasix and steroids and improved. Discharged to finish steroid course and home lasix increased to 60mg BID. Exam Vital Signs (past 8 hours): - 03/19/23 03:28 03/19/23 03:28 03/19/23 03:30 Temperature Pulse Rate 84 83 Respiratory Rate Blood Pressure 110/71 Pulse Oximetry 96 97 Oxygen Delivery Method Oxygen Flow Rate Fraction of Inspired Oxygen 03/19/23 03:45 03/19/23 04:00 03/19/23 04:00 Temperature 98.6 F Pulse Rate 82 83 85 Respiratory Rate 17 Blood Pressure 110/71 Pulse Oximetry 98 97 96 Oxygen Delivery Method Oxygen Flow Rate 2 Fraction of Inspired Oxygen 03/19/23 04:15 03/19/23 04:30 03/19/23 04:45 Temperature Pulse Rate 83 82 82 Respiratory Rate Blood Pressure Pulse Oximetry 96 95 94 Oxygen Delivery Method Oxygen Flow Rate Fraction of Inspired Oxygen 03/19/23 05:00 03/19/23 05:15 03/19/23 05:30 Temperature Pulse Rate 79 80 82 Respiratory Rate Blood Pressure Pulse Oximetry 93 93 95 Oxygen Delivery Method Oxygen Flow Rate Fraction of Inspired Oxygen 03/19/23 05:45 03/19/23 06:00 03/19/23 06:00 Temperature Pulse Rate 86 82 80 Respiratory Rate Blood Pressure 119/56 L Pulse Oximetry 96 95 Oxygen Delivery Method Oxygen Flow Rate Fraction of Inspired Oxygen 03/19/23 06:13 03/19/23 06:13 03/19/23 06:15 Temperature Pulse Rate 82 83 Respiratory Rate Blood Pressure 119/56 L Pulse Oximetry 96 96 Oxygen Delivery Method Oxygen Flow Rate Fraction of Inspired Oxygen 03/19/23 06:30 03/19/23 06:45 03/19/23 07:00 Temperature Pulse Rate 80 78 78 Respiratory Rate Blood Pressure Pulse Oximetry 95 95 95 Oxygen Delivery Method Oxygen Flow Rate Fraction of Inspired Oxygen 03/19/23 07:00 03/19/23 07:33 03/19/23 08:00 Temperature 98.1 F Pulse Rate 81 81 Respiratory Rate 18 24 Blood Pressure 116/56 L Pulse Oximetry 96 96 Oxygen Delivery Method Room Air Nasal Cannula Nasal Cannula Oxygen Flow Rate 2 0 Fraction of Inspired Oxygen 21 03/19/23 08:45 03/19/23 08:49 03/19/23 10:56 Temperature Pulse Rate 81 82 Respiratory Rate Blood Pressure 116/56 L 120/57 L Pulse Oximetry 96 Oxygen Delivery Method Oxygen Flow Rate 0 Fraction of Inspired Oxygen Fraction of Inspired Oxygen 21 SaO2/FiO2 Ratio 457 Oxygen Delivery Method Nasal Cannula Oxygen Flow Rate 0 Const Other: Sitting in bed with BiPAP on Eyes Other: eomi Neck Other: supple, thick, short Resp Other: decreased breath sounds to bases, + wheezing Cardio Other: RRR GI Other: obese, not distended abdomen Skin Other: no rashes Neuro Other: w/o deficits Psych Other: not delusional, mild anxiety Objective Labs 03/19/23 04:32 03/19/23 04:32 Labs: Laboratory Results - last 24 hr 03/19/23 04:32 WBC 13.4 H D RBC 3.62 L Hgb 9.4 L Hct 29.3 L MCV 80.8 MCH 25.9 L MCHC 32.1 RDW 15.7 H Plt Count 274 Neut % (Auto) 90.0 H Lymph % (Auto) 4.3 L [place] % (Auto) 5.6 Eos % (Auto) 0.0 L Baso % (Auto) 0.1 Neut # (Auto) 81834 H Lymph # (Auto) 600 L [place] # (Auto) 800 Eos # (Auto) 0 Baso # (Auto) 0 Sodium 133 L Potassium 4.4 Chloride 98 Carbon Dioxide 26 BUN 60 H Creatinine 1.54 H Estimated GFR 50 L BUN/Creatinine Ratio 39.0 H Glucose 281 H Calcium 8.5 PFSH Medical History (Updated 03/18/23 @ 00:30 by Jack Welsh MD) Schizophrenia PAF (paroxysmal atrial fibrillation) Degenerative joint disease of knee Inpatient management required Hyperlipidemia Hypertensive heart disease with chronic diastolic congestive heart failure Diabetes type 2, uncontrolled Chest pain Atrial fibrillation with rapid ventricular response Hyperlipidemia Former smoker Hypertensive heart disease with heart failure Diabetes type 2, controlled 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 Systemic hypertension Obstructive sleep apnea Chronic respiratory failure Grade III diastolic dysfunction Paroxysmal atrial fibrillation with rapid ventricular response Non-ST elevated myocardial infarction Surgical History H/O umbilical hernia repair (~1966) History of right hip replacement (~2014) Family History Father Knee pain, chronic Mother Patient denies significant medical history Social History household members: none Smoking Status: Former smoker alcohol intake: current Discharge Plan Discharge Plan Patient Disposition: Home Health Service Provider Discharge Comment: I've increased your lasix to 60mg twice daily. Discharge orders & Medications Prescriptions: Continued benzonatate 200 mg capsule 200 mg PO 3XD PRN (Reason: cough) isosorbide mononitrate 60 mg tablet extended release 24 hr 60 mg PO QAM hydralazine 100 mg tablet 100 mg PO Q8H gabapentin 300 mg capsule 900 mg PO ONCE PM insulin lispro 100 unit/mL insulin pen 25 unit SUBCUT BID Patient Comments: [NO ORIGINAL SIG] Atrovent HFA 17 mcg/actuation HFA aerosol inhaler 2 puff INHALATION Q6H PRN (Reason: Shortness Of Breath Or Wheezing) insulin glargine [Lantus Solostar U-100 Insulin] 100 unit/mL (3 mL) insulin pen 60 unit SUBCUT BID nitroglycerin 0.4 mg tablet, sublingual See Rx Instructions .ROUTE .COMPLEX Rx Instructions: 0.4 mg sublingually q 5 min x 3 for chest pain, max # 3. montelukast 10 mg tablet 10 mg PO DAILY amlodipine 5 mg Tablet 10 mg PO DAILY loratadine 10 mg Tablet 10 mg PO DAILY budesonide-formoterol [Symbicort] 160-4.5 mcg/actuation Hfa Aerosol Inhaler 2 puff INHALATION BID PRN (Reason: Shortness Of Breath Or Wheezing) lamotrigine 150 mg Tablet 150 mg PO BEDTIME pantoprazole 40 mg tablet,delayed release (DR/EC) 40 mg PO DAILY allopurinol 300 mg tablet 300 mg PO BID aspirin 81 mg tablet,chewable 81 mg PO DAILY carvedilol 25 mg tablet 50 mg PO BID Qty: 0 0RF doxazosin 2 mg tablet 2 mg PO BEDTIME clopidogrel 75 mg tablet 75 mg PO DAILY diclofenac sodium 1 % gel 1 ea topical PRN PRN (Reason: Pain) chlorthalidone 50 mg tablet 50 mg PO DAILY rosuvastatin 40 mg tablet 40 mg PO DAILY potassium chloride 10 mEq tablet,ER particles/crystals 10 meq PO BID Combivent Respimat 20-100 mcg/actuation mist 2 puff inhalation PRN PRN (Reason: Shortness Of Breath Or Wheezing) metformin 1,000 mg tablet 1,000 mg PO BID benztropine 1 mg tablet 1 mg PO DAILY Changed furosemide 20 mg tablet 60 mg PO BIDWM Qty: 30 0RF Follow up/Referrals: Stephanie Marrero MD [Primary Care Provider] - 2 Weeks Visit Report/Discharge Packet Instructions: DI for Heart Failure, DI for Chronic Obstructive Pulmonary Disease Stand Alone Forms: Congestive Heart Failure, Patient Portal/API, Stroke Signs & Symptoms Discharge Data Primary Care Provider: Stephanie Marrero Quality VTE Deep Vein Thrombosis/Pulmonary Embolism Present on Admission: No
--- NOTE | 2023-03-19 13:21 | CM.DPNOTE ---
DC Note Dr Thomas has discharged patient home today and requests HH services. Met w/patient to review DCP. Patient agreeable to HH, no agency preference. Patient requests call to Medicaid transport to arrange ride home. Fausto marley as patient is indp. Completed the Medicaid transportation request form and provided to JOSE Trevino, who kindly agreed to coordinate transport. Then received call from Medicaid transport to inform this [employer] that patient would be picked up by [facility] at 1315. Updated FREDERICK La and patient. JOSE Trevino, sent referral to [facility] for RN/PT, F2F and HH order completed. [facility] does not accept patient's insurance and [facility] does not serve [place]. updated patient and provided brochure for [facility] Plan: Discharge home via Medicaid transport (fausto), [facility] to follow for HH RN/PT JW
== END 2023-03-19 13:15 | disposition home health service (06) | DRG 291 ==
LOC: ED 03-18 00:11 → AC 03-18 00:12 → ICU 03-18 00:58
PROVIDERS: Student in an Organized Health Care Education/Training Program; Admitting Provider Internal Medicine; Emergency Provider Emergency Medicine; PCP Internal Medicine; Referring Provider Emergency Medicine; Visit Provider Internal Medicine
DX: I11.0 Hypertensive heart disease with heart failure (principal); I50.33 Acute on chronic diastolic (congestive) heart failure; Z68.41 Body mass index [BMI] 40.0-44.9, adult; J44.1 Chronic obstructive pulmonary disease with (acute) exacerbation; E66.01 Morbid (severe) obesity due to excess calories; G47.33 Obstructive sleep apnea (adult) (pediatric); E11.649 Type 2 diabetes mellitus with hypoglycemia without coma; I48.0 Paroxysmal atrial fibrillation; F20.9 Schizophrenia, unspecified; E78.5 Hyperlipidemia, unspecified; Z79.4 Long term (current) use of insulin; Z79.84 Long term (current) use of oral hypoglycemic drugs; Z87.891 Personal history of nicotine dependence
CPT/HCPCS: 36415; 71045; 80048; 80053; 81003; 82550; 82962; 83690; 83880; 84145; 84484; 85025; 85379; 87633; 87635; 87797; 93005; 93306; 94640; 94660; 94762; 96365; 96375; 99285; C9803; J1650; J1815; J1940; J2930; J7613

== ENCOUNTER 2023-04-03 18:20 | Emergency (ER) | payer MEDICARE, MEDICAID, SELFPAY ==
[2023-03-18 00:28] VITALS: BMI 44.5
[2023-03-18 01:23] VITALS: PULSE 75; RESP 20; O2SAT 21
[2023-04-03] VITALS (10 sets, daily range): BP systolic 140–187; BP diastolic 65–84; PULSE 66–83; RESP 13–40; TEMP 36.6–36.8; O2SAT 86–100; BMI 44.3
--- NOTE | 2023-04-03 18:53 | ED.GENADULT ---
HPI - General Adult General Chief complaint: Diabetic Problem Stated complaint: hypoglycemia Time Seen by Provider: 04/03/23 18:22 Source: EMS Mode of arrival: EMS History of Present Illness HPI narrative: 63-year-old male former smoker, diabetic, hypertension, hyperlipidemia presents by EMS for evaluation of feeling sweaty and weak. He states that he skipped lunch but still took his routine insulin regimen and started feeling poorly afterwards. On arrival EMS found his blood glucose to be 35. He was given 25 g of dextrose and by his arrival was completely asymptomatic with a blood glucose of the 120s. He is otherwise well and free of complaint. Denies any chest pain or shortness of breath, no nausea, vomiting or diarrhea. No other medication changes, no other illness. Related Data Home Medications Medication Instructions Recorded Confirmed montelukast 10 mg tablet 10 mg PO DAILY 09/11/18 03/18/23 nitroglycerin 0.4 mg sublingual See Rx Instructions .Route .COMPLEX 09/11/18 03/18/23 tablet amlodipine 5 mg tablet 10 mg PO DAILY 09/12/18 03/18/23 budesonide-formoterol HFA 160 2 puff inhalation BID PRN 09/12/18 03/18/23 mcg-4.5 mcg/actuation aerosol Shortness Of Breath Or Wheezing inhaler (Symbicort) lamotrigine 150 mg tablet 150 mg PO BEDTIME PTSD 09/12/18 03/18/23 loratadine 10 mg tablet 10 mg PO DAILY 09/12/18 03/18/23 allopurinol 300 mg tablet 300 mg PO BID 12/04/18 03/18/23 aspirin 81 mg chewable tablet 81 mg PO DAILY 12/04/18 03/18/23 pantoprazole 40 mg tablet,delayed 40 mg PO DAILY 12/04/18 03/18/23 release benztropine 1 mg tablet 1 mg PO DAILY 02/09/21 03/18/23 chlorthalidone 50 mg tablet 50 mg PO DAILY 09/23/21 03/18/23 clopidogrel 75 mg tablet 75 mg PO DAILY 09/23/21 03/18/23 diclofenac sodium 1 % topical gel 1 ea topical PRN PRN Pain 09/23/21 03/18/23 doxazosin 2 mg tablet 2 mg PO BEDTIME 09/23/21 03/18/23 ipratropium 20 mcg-albuterol 100 2 puff inhalation PRN PRN 01/25/22 03/18/23 mcg/actuation mist for inhalation Shortness Of Breath Or Wheezing (Combivent Respimat) metformin 1,000 mg tablet 1,000 mg PO BID 01/25/22 03/18/23 potassium chloride 10 mEq 10 meq PO BID 01/25/22 03/18/23 tablet,extended release(part/cryst) rosuvastatin 40 mg tablet 40 mg PO DAILY 01/25/22 03/18/23 benzonatate 200 mg capsule 200 mg PO 3XD PRN cough 03/18/23 03/18/23 gabapentin 300 mg capsule 900 mg PO ONCE PM pain 03/18/23 03/18/23 hydralazine 100 mg tablet 100 mg PO Q8H 03/18/23 03/18/23 insulin glargine 100 unit/mL (3 60 unit SUBCUT BID 03/18/23 03/18/23 mL) subcutaneous pen (Lantus Solostar U-100 Insulin) insulin lispro 100 unit/mL 25 unit SUBCUT BID 03/18/23 03/18/23 subcutaneous pen ipratropium bromide 17 2 puff inhalation Q6H PRN 03/18/23 03/18/23 mcg/actuation HFA aerosol inhaler Shortness Of Breath Or Wheezing (Atrovent HFA) isosorbide mononitrate 60 mg 60 mg PO QAM 03/18/23 03/18/23 tablet,extended release 24 hr Previous Rx's Medication Instructions Recorded carvedilol 25 mg tablet 50 mg (2 x 25 mg) PO BID #0 tabs 12/04/18 furosemide 20 mg tablet 60 mg (3 x 20 mg) PO BIDWM #30 tabs 03/19/23 Allergies Allergy/AdvReac Type Severity Reaction Status Date / Time sulfamethoxazole Allergy Intermediate ITCHING Verified 01/25/22 14:16 [From BACTRIM] trimethoprim [From BACTRIM] Allergy Intermediate ITCHING Verified 01/25/22 14:16 Review of Systems Review of Systems Narrative: GENERAL: See HPI HEENT: Denies sinus pain, ear pain, sore throat, difficulty swallowing, dizziness. RESPIRATORY: Denies dyspnea, cough, wheezing, hemoptysis, sputum. CARDIOVASCULAR: Denies chest pain, palpitations, orthopnea, edema, GASTROINTESTINAL: Denies nausea, vomiting, abdominal pain, diarrhea, constipation, melena. : Denies dysuria, frequency, incontinence, hematuria, urinary retention. MUSCULOSKELETAL: denies weakness, joint pain, or bony pain SKIN: Denies rash, skin lesions, or other NEUROLOGIC: Denies weakness, headache, numbness, change in speech, confusion, seizures, incoordination. PSYCHIATRIC: No concerning psychosocial issues. 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 Systemic hypertension Obstructive sleep apnea Chronic respiratory failure Grade III diastolic dysfunction Paroxysmal atrial fibrillation with rapid ventricular response Non-ST elevated myocardial infarction Surgical History H/O umbilical hernia repair (~1966) History of right hip replacement (~2014) Family History Father Knee pain, chronic Mother Patient denies significant medical history Social History household members: none Smoking Status: Former smoker alcohol intake: current Smoking Status: Former smoker alcohol intake frequency: a few times a week Substance Use Type: does not use Exam Narrative Exam Narrative: GENERAL: [63] year old patient appears stated age. Well-developed patient, in mild distress. GCS 15 HEAD: Atraumatic. Normocephalic. EYES: Pupils equal round and reactive. Extraocular motions intact. No scleral icterus. No injection or drainage. ENT: Nose without bleeding, purulent drainage. Throat without erythema, tonsillar hypertrophy or exudate. Airway patent. NECK: Trachea midline. Non tender CARDIOVASCULAR: Regular rate and rhythm without murmurs, gallops, or rubs. RESPIRATORY: Clear to auscultation. Breath sounds equal bilaterally. No wheezes, rales, or rhonchi. GASTROINTESTINAL: Abdomen soft, non-tender, nondistended. EXTREMITIES: No edema or joint tenderness. BACK: Nontender without deformity or crepitance. No flank tenderness. NEURO: AOx3. SKIN: No rash or erythema of visible areas Initial Vital Signs Initial Vital Signs: Vital Signs Pulse Rate 68 04/03/23 18:24 Blood Pressure 140/65 04/03/23 18:24 Pulse Oximetry 100 04/03/23 18:24 Oxygen Delivery Method Nasal Cannula 04/03/23 18:24 Oxygen Flow Rate 4 04/03/23 18:24 Course Vital Signs Vital signs: Vital Signs - 8 hr 04/03/23 18:24 04/03/23 18:24 04/03/23 18:26 Temperature 98.2 F Pulse Rate 68 67 Respiratory Rate 16 Blood Pressure 140/65 140/65 Pulse Oximetry 100 100 Oxygen Delivery Method Nasal Cannula Room Air Oxygen Flow Rate 4 04/03/23 18:30 04/03/23 18:31 04/03/23 18:31 Temperature Pulse Rate 68 66 Respiratory Rate 15 14 Blood Pressure 157/71 H Pulse Oximetry 100 100 Oxygen Delivery Method Oxygen Flow Rate 2 04/03/23 19:00 04/03/23 19:00 04/03/23 19:30 Temperature Pulse Rate 72 75 Respiratory Rate 17 19 Blood Pressure 174/84 H Pulse Oximetry 97 95 Oxygen Delivery Method Oxygen Flow Rate 04/03/23 19:30 04/03/23 20:00 04/03/23 20:00 Temperature Pulse Rate 79 Respiratory Rate 22 Blood Pressure 187/80 H 187/79 H Pulse Oximetry 94 Oxygen Delivery Method Oxygen Flow Rate 04/03/23 20:30 Temperature Pulse Rate 83 Respiratory Rate 40 H Blood Pressure Pulse Oximetry 86 L Oxygen Delivery Method Oxygen Flow Rate Medical Decision Making Lab Data Labs: Point of Care Testing Glucose POC 203 Point of care testing: Point of Care Testing Glucose POC 203 [facility] Narrative Medical decision making narrative: [63] year old patient presents with low blood sugar after taking insulin when skipping meals Multiple etiologies for patient's symptoms considered including, but not limited to: [Hypoglycemia versus other] Prior Charts reviewed in our EMR Primary Historian: patient Labs reviewed and interpreted by myself: Blood sugars stabilized after feeding him, observed for few hours. Feeling at baseline. Patient's history and physical exam are reassuring. Patient had been in his normal state of health, began feeling poorly after taking his insulin on an empty stomach, admittedly skipping lunch. He is given dextrose EN route and fed while here, blood sugar stabilized. We did discuss the potential of a more involved workup but sure the opinion that given his resolution of symptoms, and relatively clear etiology of symptoms would suggest against the likelihood of needing to pursue alternate diagnoses at this time. Patient's symptoms improved over duration of stay with above-stated therapies. Findings and discharge diagnosis discussed with patient/family followed by verbalization of understanding Return precautions discussed with patient/family whom verbalize understanding of diagnosis and plan Discharge Plan Departure Patient Disposition: Home Clinical Impression: Hypoglycemia Instructions: DI for Hypoglycemia Activity Restrictions/Additional Instructions: *You have been diagnosed with [hypoglycemia resolved] *What to do: *Please continue to take your regular medications as directed. [ ] New medication prescriptions sent to your pharmacy: [ ] [ ] New medication written as a paper prescription [ ] No new medications given *Please follow up with your primary care provider in 2-3 days, call for an appointment. Let them know you were seen in the Emergency Department and that we ask that you be seen in follow up. We will electronically transmit a record of today's note if your PCP is in our system *If you do not have a primary care provider please contact the [facility] Resource line at [phone]. They will ask some questions about your medical history and help get you set up with a doctor in the community. *Return to Emergency Department if you should have any new, worsening or concerning symptoms, such as [fever greater than 101 F, shaking chills, worsening pain, persistent vomiting or other bothersome symptoms] Prescriptions: No Action benzonatate 200 mg capsule 200 mg PO 3XD PRN (Reason: cough) isosorbide mononitrate 60 mg tablet extended release 24 hr 60 mg PO QAM hydralazine 100 mg tablet 100 mg PO Q8H gabapentin 300 mg capsule 900 mg PO ONCE PM insulin lispro 100 unit/mL insulin pen 25 unit SUBCUT BID Patient Comments: [NO ORIGINAL SIG] Atrovent HFA 17 mcg/actuation HFA aerosol inhaler 2 puff INHALATION Q6H PRN (Reason: Shortness Of Breath Or Wheezing) insulin glargine [Lantus Solostar U-100 Insulin] 100 unit/mL (3 mL) insulin pen 60 unit SUBCUT BID furosemide 20 mg tablet 60 mg PO BIDWM Qty: 30 0RF nitroglycerin 0.4 mg tablet, sublingual See Rx Instructions .ROUTE .COMPLEX Rx Instructions: 0.4 mg sublingually q 5 min x 3 for chest pain, max # 3. montelukast 10 mg tablet 10 mg PO DAILY amlodipine 5 mg Tablet 10 mg PO DAILY loratadine 10 mg Tablet 10 mg PO DAILY budesonide-formoterol [Symbicort] 160-4.5 mcg/actuation Hfa Aerosol Inhaler 2 puff INHALATION BID PRN (Reason: Shortness Of Breath Or Wheezing) lamotrigine 150 mg Tablet 150 mg PO BEDTIME pantoprazole 40 mg tablet,delayed release (DR/EC) 40 mg PO DAILY allopurinol 300 mg tablet 300 mg PO BID aspirin 81 mg tablet,chewable 81 mg PO DAILY carvedilol 25 mg tablet 50 mg PO BID Qty: 0 0RF doxazosin 2 mg tablet 2 mg PO BEDTIME clopidogrel 75 mg tablet 75 mg PO DAILY diclofenac sodium 1 % gel 1 ea topical PRN PRN (Reason: Pain) chlorthalidone 50 mg tablet 50 mg PO DAILY rosuvastatin 40 mg tablet 40 mg PO DAILY potassium chloride 10 mEq tablet,ER particles/crystals 10 meq PO BID Combivent Respimat 20-100 mcg/actuation mist 2 puff inhalation PRN PRN (Reason: Shortness Of Breath Or Wheezing) metformin 1,000 mg tablet 1,000 mg PO BID benztropine 1 mg tablet 1 mg PO DAILY Referrals: Stephanie Marrero MD [Primary Care Provider] - Stand Alone Forms: Patient Portal/API
== END 2023-04-03 21:50 | disposition home or self-care (01) ==
PROVIDERS: Emergency Provider Emergency Medicine; PCP Internal Medicine
DX: E11.649 Type 2 diabetes mellitus with hypoglycemia without coma (principal); Z79.899 Other long term (current) drug therapy
CPT/HCPCS: 82962; 99282; 99284

== ENCOUNTER 2023-04-11 14:53 | Emergency (ER) | payer MEDICARE, MEDICAID, SELFPAY ==
[2023-03-18 00:28] VITALS: BMI 44.5
[2023-03-18 01:23] VITALS: PULSE 75; RESP 20; O2SAT 21
[2023-04-11] VITALS (25 sets, daily range): BP systolic 109–141; BP diastolic 50–62; PULSE 70–79; RESP 11–24; TEMP 36.5; O2SAT 94–98; BMI 45.8
--- NOTE | 2023-04-11 15:06 | DI.RAD.S_ITS ---
PROCEDURE: XR CHEST 1V INDICATIONS: Shortness of breath TECHNIQUE: One view of the chest was acquired. COMPARISON: [facility], CR, XR CHEST 1V, 03/17/2023, 19:50. [facility], CR, XR CHEST 1V, 02/19/2023, 14:51. FINDINGS: Surgical changes and devices: None. Lungs and pleura: Diffuse bilateral airspace opacities. No pleural effusions or pneumothorax. Mediastinum: Mediastinal contours appear normal. Heart size is enlarged. Bones and chest wall: No suspicious bony lesions. Overlying soft tissues appear unremarkable. IMPRESSION: 1. Cardiomegaly. 2. Diffuse bilateral airspace opacities consistent with CHF are improved compared to 03/17/2023. Dictated by: Tolu Marrero M.D. on 04/11/2023 at 16:46 Approved by: Tolu Marrero M.D. on 04/11/2023 at 16:49
--- NOTE | 2023-04-11 15:21 | ED_ITS ---
HPI - SOB/Dyspnea <Taylor Christianson MD - Last Filed: 04/20/23 07:11> General Chief Complaint: Shortness of Breath/Dyspnea Stated Complaint: CHF, Gained 20lbs in 10 days Time Seen by Provider: 04/11/23 14:57 Source: patient Mode of arrival: Wheelchair Limitations: no limitations History of Present Illness HPI Narrative: 63-year-old male with history of congestive heart failure, hypertension, insulin-dependent diabetes presents by EMS from home for shortness of breath. Patient reports leg swelling and a 20 lb weight gain since his discharge from the hospital 10 days ago. He states he has been taking furosemide, but was never told to follow a low-salt diet or to watch his water intake. He feels short of breath if he lays down flat. Related Data Home Medications Medication Instructions Recorded Confirmed montelukast 10 mg tablet 10 mg PO DAILY 09/11/18 03/18/23 nitroglycerin 0.4 mg sublingual See Rx Instructions .Route .COMPLEX 09/11/18 03/18/23 tablet amlodipine 5 mg tablet 10 mg PO DAILY 09/12/18 03/18/23 budesonide-formoterol HFA 160 2 puff inhalation BID PRN 09/12/18 03/18/23 mcg-4.5 mcg/actuation aerosol Shortness Of Breath Or Wheezing inhaler (Symbicort) lamotrigine 150 mg tablet 150 mg PO BEDTIME PTSD 09/12/18 03/18/23 loratadine 10 mg tablet 10 mg PO DAILY 09/12/18 03/18/23 allopurinol 300 mg tablet 300 mg PO BID 12/04/18 03/18/23 aspirin 81 mg chewable tablet 81 mg PO DAILY 12/04/18 03/18/23 pantoprazole 40 mg tablet,delayed 40 mg PO DAILY 12/04/18 03/18/23 release benztropine 1 mg tablet 1 mg PO DAILY 02/09/21 03/18/23 chlorthalidone 50 mg tablet 50 mg PO DAILY 09/23/21 03/18/23 clopidogrel 75 mg tablet 75 mg PO DAILY 09/23/21 03/18/23 diclofenac sodium 1 % topical gel 1 ea topical PRN PRN Pain 09/23/21 03/18/23 doxazosin 2 mg tablet 2 mg PO BEDTIME 09/23/21 03/18/23 ipratropium 20 mcg-albuterol 100 2 puff inhalation PRN PRN 01/25/22 03/18/23 mcg/actuation mist for inhalation Shortness Of Breath Or Wheezing (Combivent Respimat) metformin 1,000 mg tablet 1,000 mg PO BID 01/25/22 03/18/23 potassium chloride 10 mEq 10 meq PO BID 01/25/22 03/18/23 tablet,extended release(part/cryst) rosuvastatin 40 mg tablet 40 mg PO DAILY 01/25/22 03/18/23 benzonatate 200 mg capsule 200 mg PO 3XD PRN cough 03/18/23 03/18/23 gabapentin 300 mg capsule 900 mg PO ONCE PM pain 03/18/23 03/18/23 hydralazine 100 mg tablet 100 mg PO Q8H 03/18/23 03/18/23 insulin glargine 100 unit/mL (3 60 unit SUBCUT BID 03/18/23 03/18/23 mL) subcutaneous pen (Lantus Solostar U-100 Insulin) insulin lispro 100 unit/mL 25 unit SUBCUT BID 03/18/23 03/18/23 subcutaneous pen ipratropium bromide 17 2 puff inhalation Q6H PRN 03/18/23 03/18/23 mcg/actuation HFA aerosol inhaler Shortness Of Breath Or Wheezing (Atrovent HFA) isosorbide mononitrate 60 mg 60 mg PO QAM 03/18/23 03/18/23 tablet,extended release 24 hr Previous Rx's Medication Instructions Recorded carvedilol 25 mg tablet 50 mg (2 x 25 mg) PO BID #0 tabs 12/04/18 furosemide 20 mg tablet 60 mg (3 x 20 mg) PO BIDWM #30 tabs 03/19/23 furosemide 20 mg tablet 60 mg (3 x 20 mg) PO DAILY #30 tabs 04/11/23 tamsulosin 0.4 mg capsule (Flomax) 0.4 mg PO BEDTIME #30 caps 04/11/23 Allergies Allergy/AdvReac Type Severity Reaction Status Date / Time sulfamethoxazole Allergy Intermediate ITCHING Verified 04/11/23 18:15 [From BACTRIM] trimethoprim [From BACTRIM] Allergy Intermediate ITCHING Verified 04/11/23 18:15 Review of Systems <Taylor Christianson MD - Last Filed: 04/20/23 07:11> Review of Systems Narrative: Negative except as noted above Patient History <Taylor Christianson MD - Last Filed: 04/20/23 07:11> Medical History Schizophrenia PAF (paroxysmal atrial fibrillation) Degenerative joint disease of knee Inpatient management required Hyperlipidemia Hypertensive heart disease with chronic diastolic congestive heart failure Diabetes type 2, uncontrolled Chest pain Atrial fibrillation with rapid ventricular response Hyperlipidemia Former smoker Hypertensive heart disease with heart failure Diabetes type 2, controlled 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 Systemic hypertension Obstructive sleep apnea Chronic respiratory failure Grade III diastolic dysfunction Paroxysmal atrial fibrillation with rapid ventricular response Non-ST elevated myocardial infarction Surgical History H/O umbilical hernia repair (~1966) History of right hip replacement (~2014) Family History Father Knee pain, chronic Mother Patient denies significant medical history Social History household members: none Smoking Status: Former smoker alcohol intake: current Smoking Status: Former smoker alcohol intake frequency: a few times a week Substance Use Type: does not use Exam <Taylor Christianson MD - Last Filed: 04/20/23 07:11> Initial Vital Signs Initial Vital Signs: Vital Signs Temperature 97.7 F 04/11/23 15:00 Pulse Rate 74 04/11/23 15:00 Respiratory Rate 14 04/11/23 15:00 Blood Pressure 109/53 L 04/11/23 15:00 Pulse Oximetry 98 04/11/23 15:00 Oxygen Delivery Method Room Air 04/11/23 15:00 Const: Awake, alert, no acute distress, appears chronically unwell Eyes: PERRL, EOMI, conjunctiva normal ENT: Atraumatic, dentition normal, mucous membranes moist Cardiac: regular rate, regular rhythm RESP: Speaking in complete sentences, inspiratory crackles bibasilarly GI: Atraumatic, soft, nontender, nondistended, no rebound, no guarding MSK: Atraumatic, full range of motion, 2+ pitting edema to knees bilaterally Skin: Warm, Dry, intact, no rashes Neuro: AO x3, CN II-XII grossly intact, moves all extremities <Beka Boone DO - Last Filed: 04/11/23 22:25> Initial Vital Signs Initial Vital Signs: Vital Signs Temperature 97.7 F 04/11/23 15:00 Pulse Rate 74 04/11/23 15:00 Respiratory Rate 14 04/11/23 15:00 Blood Pressure 109/53 L 04/11/23 15:00 Pulse Oximetry 98 04/11/23 15:00 Oxygen Delivery Method Room Air 04/11/23 15:00 Course <Taylor Christianson MD - Last Filed: 04/20/23 07:11> Course Course Narrative: Volume overload, patient is not following a low-salt diet or watching his fluid intake. Patient does have pitting edema, he is not laboring for breath, not hypoxic. We will order empiric Lasix. Orders Ordered: Discontinued Medications Hydrocodone Bitart/Acetaminophen (Hydrocodone/Acet 5/325 Tablet) 1 tab PO NOW ONE Stop: 04/11/23 17:06 Last Admin: 04/11/23 17:11 Dose: 1 tab Documented By: FLOWER Gabapentin (Gabapentin 300 Mg Capsule) 300 mg PO NOW ONE Stop: 04/11/23 17:06 Last Admin: 04/11/23 17:11 Dose: 300 mg Documented By: FLOWER Furosemide 60 mg/ Sodium (Chloride) 56 mls @ 112 mls/hr IV NOW ONE Stop: 04/11/23 15:23 Last Infusion: 04/11/23 16:11 Dose: Infused Documented By: Admin: 04/11/23 15:34 Dose: 112 mls/hr Documented By: MPO Reevaluation(s) Reevaluation #1: Laboratory work is reviewed. Chest x-ray shows improving volume overload from prior. Patient did not urinate despite diuretics, bladder scan showed that patient was retaining greater than 1 L of urine. Colon was placed with drainage of 1500 cc of urine. At this time no indication for admission to the hospital with appropriate diuresis. We will monitor to ensure that patient diuresis fluid and then we will discharge. He was informed that he will need to follow up with Urology for his catheter needs and he will need to follow up with his primary care physician. Vital Signs Vital signs: Vital Signs - 8 hr 11/01/23 15:00 04/11/23 15:00 04/11/23 15:02 Temperature 97.7 F Pulse Rate 74 78 75 Respiratory Rate 14 17 Blood Pressure 109/53 L Pulse Oximetry 98 94 98 Oxygen Delivery Method Room Air 04/11/23 15:02 04/11/23 15:15 04/11/23 15:30 Temperature Pulse Rate 72 73 Respiratory Rate 15 11 L Blood Pressure 109/53 L Pulse Oximetry 96 Oxygen Delivery Method 04/11/23 15:45 04/11/23 16:00 04/11/23 16:15 Temperature Pulse Rate 70 71 71 Respiratory Rate 17 12 Blood Pressure Pulse Oximetry 97 95 96 Oxygen Delivery Method 04/11/23 16:15 04/11/23 16:30 04/11/23 16:45 Temperature Pulse Rate 71 72 Respiratory Rate 21 Blood Pressure 125/57 L Pulse Oximetry 97 96 Oxygen Delivery Method 04/11/23 17:00 04/11/23 17:15 04/11/23 17:30 Temperature Pulse Rate 73 75 74 Respiratory Rate 15 17 14 Blood Pressure Pulse Oximetry 96 96 96 Oxygen Delivery Method 04/11/23 17:45 04/11/23 18:00 04/11/23 18:15 Temperature Pulse Rate 76 74 75 Respiratory Rate 13 13 14 Blood Pressure Pulse Oximetry 95 94 95 Oxygen Delivery Method 04/11/23 18:30 04/11/23 18:45 04/11/23 19:00 Temperature Pulse Rate 75 77 78 Respiratory Rate 19 15 24 Blood Pressure Pulse Oximetry 95 95 95 Oxygen Delivery Method 04/11/23 19:15 04/11/23 19:30 04/11/23 19:43 Temperature Pulse Rate 76 79 78 Respiratory Rate 15 17 23 Blood Pressure Pulse Oximetry 95 97 96 Oxygen Delivery Method 04/11/23 19:43 04/11/23 19:45 04/11/23 19:45 Temperature Pulse Rate 77 Respiratory Rate 14 Blood Pressure 109/50 L 141/62 H Pulse Oximetry 98 Oxygen Delivery Method 04/11/23 20:00 04/11/23 20:00 04/11/23 20:15 Temperature Pulse Rate 75 75 Respiratory Rate 17 15 Blood Pressure 132/57 L Pulse Oximetry 98 97 Oxygen Delivery Method 04/11/23 20:30 04/11/23 20:30 Temperature Pulse Rate 77 Respiratory Rate 15 Blood Pressure 128/58 L Pulse Oximetry 94 Oxygen Delivery Method <Beka Boone, DO - Last Filed: 04/11/23 22:25> Orders Ordered: Discontinued Medications Hydrocodone Bitart/Acetaminophen (Hydrocodone/Acet 5/325 Tablet) 1 tab PO NOW ONE Stop: 04/11/23 17:06 Last Admin: 04/11/23 17:11 Dose: 1 tab Documented By: FLOWER Gabapentin (Gabapentin 300 Mg Capsule) 300 mg PO NOW ONE Stop: 04/11/23 17:06 Last Admin: 04/11/23 17:11 Dose: 300 mg Documented By: FLOWER Furosemide 60 mg/ Sodium (Chloride) 56 mls @ 112 mls/hr IV NOW ONE Stop: 04/11/23 15:23 Last Infusion: 04/11/23 16:11 Dose: Infused Documented By: Admin: 04/11/23 15:34 Dose: 112 mls/hr Documented By: FLOWER Vital Signs Vital signs: Vital Signs - 8 hr 04/11/23 15:00 04/11/23 15:00 04/11/23 15:02 Temperature 97.7 F Pulse Rate 74 78 75 Respiratory Rate 14 17 Blood Pressure 109/53 L Pulse Oximetry 98 94 98 Oxygen Delivery Method Room Air 04/11/23 15:02 04/11/23 15:15 04/11/23 15:30 Temperature Pulse Rate 72 73 Respiratory Rate 15 11 L Blood Pressure 109/53 L Pulse Oximetry 96 Oxygen Delivery Method 04/11/23 15:45 04/11/23 16:00 04/11/23 16:15 Temperature Pulse Rate 70 71 71 Respiratory Rate 17 12 Blood Pressure Pulse Oximetry 97 95 96 Oxygen Delivery Method 04/11/23 16:15 04/11/23 16:30 04/11/23 16:45 Temperature Pulse Rate 71 72 Respiratory Rate 21 Blood Pressure 125/57 L Pulse Oximetry 97 96 Oxygen Delivery Method 04/11/23 17:00 04/11/23 17:15 04/11/23 17:30 Temperature Pulse Rate 73 75 74 Respiratory Rate 15 17 14 Blood Pressure Pulse Oximetry 96 96 96 Oxygen Delivery Method 04/11/23 17:45 04/11/23 18:00 04/11/23 18:15 Temperature Pulse Rate 76 74 75 Respiratory Rate 13 13 14 Blood Pressure Pulse Oximetry 95 94 95 Oxygen Delivery Method 04/11/23 18:30 04/11/23 18:45 04/11/23 19:00 Temperature Pulse Rate 75 77 78 Respiratory Rate 19 15 24 Blood Pressure Pulse Oximetry 95 95 95 Oxygen Delivery Method 04/11/23 19:15 04/11/23 19:30 04/11/23 19:43 Temperature Pulse Rate 76 79 78 Respiratory Rate 15 17 23 Blood Pressure Pulse Oximetry 95 97 96 Oxygen Delivery Method 04/11/23 19:43 04/11/23 19:45 04/11/23 19:45 Temperature Pulse Rate 77 Respiratory Rate 14 Blood Pressure 109/50 L 141/62 H Pulse Oximetry 98 Oxygen Delivery Method 04/11/23 20:00 04/11/23 20:00 04/11/23 20:15 Temperature Pulse Rate 75 75 Respiratory Rate 17 15 Blood Pressure 132/57 L Pulse Oximetry 98 97 Oxygen Delivery Method 04/11/23 20:30 04/11/23 20:30 Temperature Pulse Rate 77 Respiratory Rate 15 Blood Pressure 128/58 L Pulse Oximetry 94 Oxygen Delivery Method MDM - SOB/Dyspnea <Taylor Christianson MD - Last Filed: 04/20/23 07:11> Differential Diagnosis Differential diagnosis: Likely acute exacerbation of chronic obstructive airways disease, congestive heart failure and community acquired pneumonia Lab Data 04/11/23 15:20 04/11/23 15:20 Labs: Lab Results 04/11/23 Range/Units 15:20 WBC 8.4 (4.5-11.0) X10^3/uL RBC 3.50 L (4.5-5.9) X10^6/uL Hgb 9.2 L (13.5-17.5) g/dL Hct 28.5 L (41-53) % MCV 81.4 (80-100) fL MCH 26.3 (26-34) PG MCHC 32.3 (30-36) % RDW 15.6 H (11.6-14.8) % Plt Count 249 (150-400) X10^3/uL Neut % (Auto) 76.6 H (50-75) % Lymph % (Auto) 10.6 L (25-40) % [place] % (Auto) 8.0 (3-14) % Eos % (Auto) 4.4 H (2-4) % Baso % (Auto) 0.4 (0-2) % Neut # (Auto) 6400 (4660-9252) /uL Lymph # (Auto) 900 L (3838-9415) /uL [place] # (Auto) 700 (0-900) /uL Eos # (Auto) 400 (0-450) /uL Baso # (Auto) 0 (0-100) /uL PT 13.2 H (10.1-12.7) SECONDS INR 1.2 (0.9-1.3) Sodium 133 L (137-145) mmol/L Potassium 3.7 (3.4-5.1) mmol/L Chloride 95 L (98-107) mmol/L Carbon Dioxide 29 (22-32) mmol/L BUN 39 H (9-20) mg/dL Creatinine 1.82 H (0.66-1.25) mg/dL Estimated GFR 41 L (>60) mL/min BUN/Creatinine Ratio 21.4 (6-22) Glucose 101 (80-110) mg/dL Lactate 1.6 (0.7-2.1) mmol/L Calcium 9.2 (8.4-10.2) mg/dL Total Bilirubin 0.5 (0.2-1.3) mg/dL AST 18 (17-59) IU/L ALT 17 (<50) IU/L Alkaline Phosphatase 67 (38-126) U/L Troponin I < 0.012 (0.01-0.034) ng/mL NT-Pro-B Natriuret Pep 554 H (<125) pg/mL Total Protein 7.0 (6.3-8.2) g/dL Albumin 4.0 (3.5-5.0) g/dL Globulin 3.0 (1.7-4.1) g/dL Albumin/Globulin Ratio 1.3 (1.0-2.8) <Beka Boone, DO - Last Filed: 04/11/23 22:25> Lab Data Labs: Lab Results 04/11/23 Range/Units 15:20 WBC 8.4 (4.5-11.0) X10^3/uL RBC 3.50 L (4.5-5.9) X10^6/uL Hgb 9.2 L (13.5-17.5) g/dL Hct 28.5 L (41-53) % MCV 81.4 (80-100) fL MCH 26.3 (26-34) PG MCHC 32.3 (30-36) % RDW 15.6 H (11.6-14.8) % Plt Count 249 (150-400) X10^3/uL Neut % (Auto) 76.6 H (50-75) % Lymph % (Auto) 10.6 L (25-40) % [place] % (Auto) 8.0 (3-14) % Eos % (Auto) 4.4 H (2-4) % Baso % (Auto) 0.4 (0-2) % Neut # (Auto) 6400 (3946-9543) /uL Lymph # (Auto) 900 L (2135-5168) /uL [place] # (Auto) 700 (0-900) /uL Eos # (Auto) 400 (0-450) /uL Baso # (Auto) 0 (0-100) /uL PT 13.2 H (10.1-12.7) SECONDS INR 1.2 (0.9-1.3) Sodium 133 L (137-145) mmol/L Potassium 3.7 (3.4-5.1) mmol/L Chloride 95 L (98-107) mmol/L Carbon Dioxide 29 (22-32) mmol/L BUN 39 H (9-20) mg/dL Creatinine 1.82 H (0.66-1.25) mg/dL Estimated GFR 41 L (>60) mL/min BUN/Creatinine Ratio 21.4 (6-22) Glucose 101 (80-110) mg/dL Lactate 1.6 (0.7-2.1) mmol/L Calcium 9.2 (8.4-10.2) mg/dL Total Bilirubin 0.5 (0.2-1.3) mg/dL AST 18 (17-59) IU/L ALT 17 (<50) IU/L Alkaline Phosphatase 67 (38-126) U/L Troponin I < 0.012 (0.01-0.034) ng/mL NT-Pro-B Natriuret Pep 554 H (<125) pg/mL Total Protein 7.0 (6.3-8.2) g/dL Albumin 4.0 (3.5-5.0) g/dL Globulin 3.0 (1.7-4.1) g/dL Albumin/Globulin Ratio 1.3 (1.0-2.8) MDM Narrative Medical decision making narrative: DR Boone: Received turned over. Reviewed patient's history and physical and workup up to this point. The patient has been diuresing however he still feels like his legs are very swollen. He is not hypoxic. Not tachypneic. He did ambulate in the emergency department without becoming short of breath but was somewhat lightheaded. Has no indication of pneumonia. Upon further questioning he has been on Lasix. He states he takes 60 mg of Lasix twice a day and just recently they increased him to 80 mg twice a day for couple days but now he is back to 60. Had a discussion with him regarding this. Will have him go back up to 80 mg. He has a follow-up with his resistor testing machine operator scheduled for next week. Will have him continue to do the 80 mg until he sees his resistor testing machine operator. There was no indication for admission to the hospital. We also discussed the need for him to follow-up with urology given his urinary retention today. He was given return precautions. He expressed understanding and agreement. Discharge Plan Departure Patient Disposition: Home Clinical Impression: Congestive heart failure, Acute urinary retention Instructions: How to Care for Your Colon Catheter -- Male, DI for Heart Failure Activity Restrictions/Additional Instructions: Increase your Lasix to 80 mg twice daily for until you follow-up with your resistor testing machine operator on the . Follow up with your primary care physician. You will need to see a urologist about your urinary retention. Please contact them at the number provided below for a follow-up Prescriptions: New tamsulosin [Flomax] 0.4 mg capsule 0.4 mg PO BEDTIME Qty: 30 0RF furosemide 20 mg tablet 60 mg PO DAILY Qty: 30 0RF No Action benzonatate 200 mg capsule 200 mg PO 3XD PRN (Reason: cough) isosorbide mononitrate 60 mg tablet extended release 24 hr 60 mg PO QAM hydralazine 100 mg tablet 100 mg PO Q8H gabapentin 300 mg capsule 900 mg PO ONCE PM insulin lispro 100 unit/mL insulin pen 25 unit SUBCUT BID Patient Comments: [NO ORIGINAL SIG] Atrovent HFA 17 mcg/actuation HFA aerosol inhaler 2 puff INHALATION Q6H PRN (Reason: Shortness Of Breath Or Wheezing) insulin glargine [Lantus Solostar U-100 Insulin] 100 unit/mL (3 mL) insulin pen 60 unit SUBCUT BID furosemide 20 mg tablet 60 mg PO BIDWM Qty: 30 0RF nitroglycerin 0.4 mg tablet, sublingual See Rx Instructions .ROUTE .COMPLEX Rx Instructions: 0.4 mg sublingually q 5 min x 3 for chest pain, max # 3. montelukast 10 mg tablet 10 mg PO DAILY amlodipine 5 mg Tablet 10 mg PO DAILY loratadine 10 mg Tablet 10 mg PO DAILY budesonide-formoterol [Symbicort] 160-4.5 mcg/actuation Hfa Aerosol Inhaler 2 puff INHALATION BID PRN (Reason: Shortness Of Breath Or Wheezing) lamotrigine 150 mg Tablet 150 mg PO BEDTIME pantoprazole 40 mg tablet,delayed release (DR/EC) 40 mg PO DAILY allopurinol 300 mg tablet 300 mg PO BID aspirin 81 mg tablet,chewable 81 mg PO DAILY carvedilol 25 mg tablet 50 mg PO BID Qty: 0 0RF doxazosin 2 mg tablet 2 mg PO BEDTIME clopidogrel 75 mg tablet 75 mg PO DAILY diclofenac sodium 1 % gel 1 ea topical PRN PRN (Reason: Pain) chlorthalidone 50 mg tablet 50 mg PO DAILY rosuvastatin 40 mg tablet 40 mg PO DAILY potassium chloride 10 mEq tablet,ER particles/crystals 10 meq PO BID Combivent Respimat 20-100 mcg/actuation mist 2 puff inhalation PRN PRN (Reason: Shortness Of Breath Or Wheezing) metformin 1,000 mg tablet 1,000 mg PO BID benztropine 1 mg tablet 1 mg PO DAILY Referrals: Stephanie Marrero MD [Primary Care Provider] - Kyle Valdes MD [Physician] - Stand Alone Forms: Patient Portal/API
[2023-04-11 15:30] LABS: Add Manual Diff / Slide Review NO; Basophils Absolute Auto 0 /uL (0-100); Basophils Percent Auto 0.4 % (0-2); Eosinophils Absolute Auto 400 /uL (0-450); Eosinophils Percent Auto 4.4 % (2-4); Hematocrit 28.5 % (41-53); Hemoglobin 9.2 g/dL (13.5-17.5); Lymphocytes Absolute Auto 900 /uL (1100-4500); Lymphocytes Percent Auto 10.6 % (25-40); Mean Corpuscular HGB Conc 32.3 % (30-36); Mean Corpuscular Hemoglobin 26.3 PG (26-34); Mean Corpuscular Volume 81.4 fL (80-100); Monocytes Absolute Auto 700 /uL (0-900); Neutrophils Absolute Auto 6400 /uL (1500-7000); Neutrophils Percent Auto 76.6 % (50-75); Platelet Count 249 X10^3/uL (150-400); Red Cell Distribution Width 15.6 % (11.6-14.8); White Blood Cell Count 8.4 X10^3/uL (4.5-11.0)
[2023-04-11] MEDS: FUROSEMIDE 60 MG in SODIUM CHLORIDE 0.9% 50 ML 112 MG IV (15:34)
[2023-04-11 15:37] LABS: INR 1.2 (0.9-1.3); Prothrombin Time 13.2 SECONDS (10.1-12.7)
[2023-04-11 15:41] LABS: Lactate (Lactic Acid) 1.6 mmol/L (0.7-2.1)
[2023-04-11 15:43] LABS: Alanine Aminotransferase 17 IU/L (<50); Albumin Globulin Ratio 1.3 (1.0-2.8); Alkaline Phosphatase 67 U/L (38-126); Aspartate Aminotransferase 18 IU/L (17-59); BUN Creatinine Ratio 21.4 (6-22); Bilirubin Total 0.5 mg/dL (0.2-1.3); Blood Urea Nitrogen 39 mg/dL (9-20); Calcium 9.2 mg/dL (8.4-10.2); Carbon Dioxide 29 mmol/L (22-32); Chloride 95 mmol/L (98-107); Estimated Glomerular Filt Rate 41 mL/min (>60); Glucose 101 mg/dL (80-110); HEMOLYSIS < 15 (0-50); Potassium 3.7 mmol/L (3.4-5.1); Sodium 133 mmol/L (137-145)
[2023-04-11 15:54] LABS: NT-proBNP (BNP-Adult 18+) 554 pg/mL (<125); Troponin I < 0.012 ng/mL (0.01-0.034)
--- NOTE | 2023-04-11 16:33 | PC.NURSE ---
Spoke to Abby, Caregiver and updated on Plan of care. Phone number in contacts
[2023-04-11] MEDS: HYDROCODONE/ACET 5/325 TABLET 1 TAB PO (17:11)
[2023-04-11] MEDS: GABAPENTIN 300 MG CAPSULE PO (17:11)
--- NOTE | 2023-04-11 18:44 | PC.NURSE ---
1737: Pt rec'd Lasix per MAR. Unable to void. Bladder scanned by VASCULAR NURSE. Over 1000mL seen in bladder. Colon cath placed. over 1500mL output. BP maintains in 120's. Pt states hes feeling better. Reports increased parasthesia in feet which is bothering him. made aware.
--- NOTE | 2023-04-11 19:45 | PC.NURSE ---
Patient up in pascual to ambulate with this RN and tech. Patient states dizziness with position change to standing. Patient able to ambulate 25 feet and states SOB is better. Dr. Boone notified
== END 2023-04-11 20:55 | disposition home or self-care (01) ==
PROVIDERS: Emergency Medicine; Emergency Provider Emergency Medicine; PCP Internal Medicine
DX: I50.9 Heart failure, unspecified (principal); R33.8 Other retention of urine; R63.5 Abnormal weight gain; Z79.899 Other long term (current) drug therapy
CPT/HCPCS: 36415; 51798; 71045; 80053; 83605; 83880; 84484; 85025; 85610; 93005; 96365; 99284; 99285; J1940